=== PATIENT | male | born 1950 | race Hispanic/Latino ===

== ENCOUNTER → 2017-12-10 | Outpatient (CLI) | payer OTHER | END | disposition home or self-care (01) | LOC: RAH 08:59 | PROVIDERS: ATTEND Internal Medicine | DX: Q61.01 Congenital single renal cyst (principal); R10.12 Left upper quadrant pain | CPT/HCPCS: 76700 ==

== ENCOUNTER → 2018-07-22 | Outpatient (CLI) | payer OTHER | END | disposition home or self-care (01) | LOC: LAB 15:04 | PROVIDERS: ATTEND Internal Medicine | DX: J20.9 Acute bronchitis, unspecified (principal); F17.290 Nicotine dependence, other tobacco product, uncomplicated | CPT/HCPCS: 36415; 82565; 84520 ==

== ENCOUNTER → 2018-07-27 | Outpatient (CLI) | payer OTHER ==
[~2018-07-27] MED LIST: ALBUTEROL SULFATE 0.083% 2.5 MG/3 ML INH IH ONE; IOHEXOL-350 50ML VIAL IV ONE
== END | disposition home or self-care (01) ==
LOC: RESP 09:07
PROVIDERS: ATTEND Internal Medicine
DX: J20.9 Acute bronchitis, unspecified (principal); F17.290 Nicotine dependence, other tobacco product, uncomplicated
CPT/HCPCS: 71260; 94060; 94727; 94729; Q9967

== ENCOUNTER → 2018-10-17 | Outpatient (CLI) | payer OTHER ==
[2018-10-17 10:51] LABS: CREATININE 0.9 mg/dL (0.5-1.5)
== END | disposition home or self-care (01) ==
LOC: LAB 09:38
PROVIDERS: ATTEND Otolaryngology
DX: H90.5 Unspecified sensorineural hearing loss (principal)
CPT/HCPCS: 36415; 82565; 84520

== ENCOUNTER → 2018-10-20 | Outpatient (CLI) | payer OTHER ==
[~2018-10-20] MED LIST changes: -ALBUTEROL SULFATE 0.083% 2.5 MG/3 ML INH IH ONE; +GADODIAMIDE 5 MMOL/10 ML VIAL 5 MMOL/10 ML ML IV ONE; -IOHEXOL-350 50ML VIAL IV ONE
== END | disposition home or self-care (01) ==
LOC: RAH 10:00
PROVIDERS: ATTEND Otolaryngology
DX: G31.9 Degenerative disease of nervous system, unspecified (principal); H90.5 Unspecified sensorineural hearing loss
CPT/HCPCS: 70553; A9579

== ENCOUNTER → 2018-12-26 | Outpatient (CLI) | payer OTHER ==
[~2018-12-26] MED LIST changes: -GADODIAMIDE 5 MMOL/10 ML VIAL 5 MMOL/10 ML ML IV ONE; +IOHEXOL-350 50ML VIAL IV ONE; +IOHEXOL-350 75 ML VIAL IV ONE
== END | disposition home or self-care (01) ==
LOC: RAH 08:26
PROVIDERS: ATTEND Internal Medicine Cardiovascular Disease
DX: I70.293 Other atherosclerosis of native arteries of extremities, bilateral legs (principal)
CPT/HCPCS: 75635; Q9967 ×2

== ENCOUNTER 2019-05-10 06:04 | Day surgery (SDC) | payer OTHER ==
[2019-05-08 11:35] VITALS: BP 168/84
[2019-05-08 11:58] LABS: HEMATOCRIT 39.6 % (42-54); MEAN CORPUSCULAR HEMOGLOBIN 33.1 pg (27.0-33.0); MEAN CORPUSCULAR VOLUME 97.3 fL (79-99); PLATELET COUNT (AUTO) 228 K/uL (130-400); RED BLOOD CELL COUNT(AUTO) 4.07 MIL/uL (4.50-6.20); RED CELL DISTRIBUTION WIDTH 13.5 % (11.0-15.5); WHITE BLOOD COUNT (AUTO) 9.3 K/uL (4.8-10.8)
[2019-05-08 12:01] LABS: APPEARANCE,URINE Clear (CLEAR); BILIRUBIN,URINE Negative (NEGATIVE); COLOR,URINE Yellow (YELLOW); GLUCOSE, URINE (UA) Negative (NEGATIVE); KETONES,URINE Negative (NEGATIVE); LEUKOCYTE ESTERASE ,URINE Negative (NEGATIVE); NITRATE,URINE Negative (NEGATIVE); OCCULT BLOOD,URINE Negative (NEGATIVE); PROTEIN,URINE Negative (NEGATIVE); UROBILINOGEN,URINE 0.2 mg/dL (0.2-1.0)
[2019-05-08 12:08] LABS: POTASSIUM 4.8 mmol/L (3.5-5.1)
[2019-05-08 12:10] LABS: INR 0.95 (0.85-1.15); PARTIAL THROMBOPLASTIN TIME 33.1 SEC (26.3-35.5)
[2019-05-08 12:12] LABS: EOSINOPHILS % (AUTO) 5.9 % (0.0-8.0); LYMPHOCYTES % (AUTO) 21.2 % (21.0-51.0); MONOCYTES % (AUTO) 12.9 % (3.0-13.0)
--- NOTE | 2019-05-09 11:32 | NUR ---
XRAY ABNORMAL XRAY REPORTED TO IRAIDA DOS SANTOS, NO FURTHER ORDERS GIVEN
[~2019-05-10] VITALS: Ht 170.2 cm; Wt 80.5 kg
[2019-05-10] VITALS (19 sets, daily range): BP systolic 127–167; BP diastolic 51–77
[~2019-05-10 06:04] MED LIST changes: +AMLO2.5T4 PO; +ASPI-1181 PO; +ATOR20TA65 PO; +CETI10TA57 PO; +ENAL20TA PO; -IOHEXOL-350 50ML VIAL IV ONE; -IOHEXOL-350 75 ML VIAL IV ONE; +METO-408 PO; +[UNRECOGNIZED DRUG - OTHER] OU
[2019-05-10] MEDS ORDERED: NITROGLYCERIN 5 MG/ML 10 ML VIAL IV ONE (07:05)
[2019-05-10] MEDS ORDERED: IODIXANOL 320 MG/ML 100 ML VIAL ONE ×2 (07:05→08:50)
[2019-05-10] MEDS ORDERED: LIDOCAINE HCL 2% 20ML ONE (07:05)
[2019-05-10] MEDS ORDERED: HEPARIN SODIUM 1000UNIT/ML 10ML VIAL ONE (07:05)
[2019-05-10] MEDS ORDERED: SODIUM CHLORIDE 0.9% 1000ML 1,000 ML IV ONE (07:37)
[2019-05-10] MEDS ORDERED: MIDAZOLAM HCL 1 MG/ML 2ML VIAL ONE (07:49)
[2019-05-10] MEDS ORDERED: FENTANYL CITRATE PF 50 MCG/1 ML 2ML VIAL ONE (07:49)
[2019-05-10] MEDS ORDERED: CLOPIDOGREL BISULFATE 300 MG TAB ONE (09:48)
[2019-05-10] MEDS ORDERED: SODIUM CHLORIDE 0.9% 1000ML 1,000 ML IV SCH (09:49)
[2019-05-10] MEDS ORDERED: HYDRALAZINE HCL 20 MG/ML VIAL ONE (09:59)
[2019-05-10] MEDS ORDERED: NITROGLYCERIN 0.4 MG SL TAB SL PRN (10:00)
[2019-05-10] MEDS ORDERED: DEXTROSE 50%-WATER 50 ML DISP.SYRIN IV PRN (10:00)
[2019-05-10] MEDS ORDERED: METOPROLOL TARTRATE 1 MG/ML 5ML VIAL IV PRN (10:00)
[2019-05-10] MEDS ORDERED: HYDRALAZINE HCL 20 MG/ML VIAL IV PRN (10:00)
[2019-05-10] MEDS ORDERED: GLUCAGON 1MG KIT 1 MG ML IM PRN (10:00)
[2019-05-10] MEDS ORDERED: PHARMACY COMMUNICATION MISC SCH (10:30)
[2019-05-10] MEDS ORDERED: ATROPINE SULFATE 0.1 MG/ML 10 ML SYG IVP ONE (12:35)
--- NOTE | 2019-05-10 13:02 | NUR ---
D/C 6 FR SHEATH 6FR IS D/C APPLYING PRESSURE FOR 20 MIN USING DESTAT
--- NOTE | 2019-05-10 13:36 | NUR ---
SHEATH D/C 3O MIN MANUAL PRESSURE HELD WITH DSTAT IN PLACE. PT. TOLERATED PROCEDURE WELL NO BLEEDING, NO HEMATOMA.
--- NOTE | 2019-05-10 14:33 | NUR ---
REPORT GIVEN TO MICHELE OLIVAREZ RN. PT RESTING COMFORTABLY, NO PAIN, NO HEMATOMA, NO BLEEDING.
--- NOTE | 2019-05-10 14:33 | NUR ---
REPORT RECEIVED REPORT FROM LILLI FOX. PT LYING IN BED. RE-INSTRUCTED ON IMPORTANCE OF LYING IN BED AND NOT MOVING LEFT LEG OR LIFTING HEAD UP OFF OF BED. BOTH PT AND VERBALIZED UNDERSTANDING. SITE TO LEFT GROIN SOFT TO TOUCH. NO BLEEDING, OOZING NOTED TO SITE.
--- NOTE | 2019-05-10 16:25 | NUR ---
DISCHARGE ORAL AND WRITTEN DISCHARGE INSTRUCTIONS GIVEN TO PT AND PTS . INSTRUCTED ON IMPORTANCE OF MONITORING SITE. BOTH VERBALIZED UNDERSTANDING. PRESCRIPTION FOR PLAVIX GIVEN TO .
== END 2019-05-10 16:35 | disposition home or self-care (01) ==
LOC: DAH 06:04
PROVIDERS: ATTEND Internal Medicine Cardiovascular Disease
DX: I70.213 Atherosclerosis of native arteries of extremities with intermittent claudication, bilateral legs (principal); I25.10 Atherosclerotic heart disease of native coronary artery without angina pectoris; I10 Essential (primary) hypertension; E78.5 Hyperlipidemia, unspecified; Z88.0 Allergy status to penicillin; Z79.01 Long term (current) use of anticoagulants; Z79.899 Other long term (current) drug therapy; Z95.5 Presence of coronary angioplasty implant and graft; Z87.891 Personal history of nicotine dependence; Z72.89 Other problems related to lifestyle; Z83.3 Family history of diabetes mellitus; Z82.3 Family history of stroke
CPT/HCPCS: 36415; 37221; 37226; 71045; 75716; 80048; 81003; 85025; 85610; 85730; 93005; A4606; C1725; C1769 ×4; C1874 ×2; C1887; C1893; C1894 ×2; J0360 ×2; J1644 ×3; J2250; J3010; J3490 ×2; J7030; Q9967 ×2; 37223; 99156; 99157; J0461

== ENCOUNTER → 2019-06-23 | Outpatient (CLI) | payer OTHER | END | disposition home or self-care (01) | LOC: RAH 13:55 | PROVIDERS: ATTEND Internal Medicine | DX: L08.9 Local infection of the skin and subcutaneous tissue, unspecified (principal); I70.213 Atherosclerosis of native arteries of extremities with intermittent claudication, bilateral legs | CPT/HCPCS: 73630 ==

== ENCOUNTER → 2019-09-13 | Outpatient (CLI) | payer OTHER | END | disposition home or self-care (01) | LOC: SHCH 15:12 | PROVIDERS: ATTEND Internal Medicine Cardiovascular Disease | DX: I70.201 Unspecified atherosclerosis of native arteries of extremities, right leg (principal) | CPT/HCPCS: 93925 ==

== ENCOUNTER 2019-09-29 09:52 | Day surgery (SDC) | payer OTHER ==
[2019-09-27 11:21] VITALS: BP 158/65
[2019-09-27 12:05] LABS: BASOPHILS % (AUTO) 0.9 % (0.0-5.0); EOSINOPHILS % (AUTO) 3.1 % (0.0-8.0); HEMATOCRIT 35.9 % (42-54); MEAN CORPUSCULAR HEMOGLOBIN 30.7 pg (27.0-33.0); MEAN CORPUSCULAR HGB CONC 32.6 g/dL (32.0-36.0); MEAN CORPUSCULAR VOLUME 94.2 fL (79-99); MONOCYTES % (AUTO) 11.9 % (3.0-13.0); NEUTROPHILS % (AUTO) 68.8 % (40.0-77.0); PLATELET COUNT (AUTO) 329 K/uL (130-400); RED BLOOD CELL COUNT(AUTO) 3.81 MIL/uL (4.50-6.20); RED CELL DISTRIBUTION WIDTH 12.7 % (11.0-15.5); WHITE BLOOD COUNT (AUTO) 9.8 K/uL (4.8-10.8)
[2019-09-27 12:06] LABS: APPEARANCE,URINE Clear (CLEAR); BILIRUBIN,URINE Negative (NEGATIVE); COLOR,URINE Yellow (YELLOW); GLUCOSE, URINE (UA) Negative (NEGATIVE); KETONES,URINE Negative (NEGATIVE); LEUKOCYTE ESTERASE ,URINE Negative (NEGATIVE); NITRATE,URINE Negative (NEGATIVE); OCCULT BLOOD,URINE Negative (NEGATIVE); PH,URINE 5.5 (5.0-8.0); PROTEIN,URINE Negative (NEGATIVE)
[2019-09-27 12:14] LABS: POTASSIUM 4.7 mmol/L (3.5-5.1)
[2019-09-27 12:15] LABS: INR 0.97 (0.85-1.15); PROTHROMBIN TIME 10.2 SEC (9.6-11.6)
[~2019-09-29] VITALS: Ht 165.1 cm; Wt 72.6 kg
[2019-09-29] VITALS (10 sets, daily range): BP systolic 151–171; BP diastolic 58–84
[~2019-09-29 09:52] MED LIST changes: -CETI10TA57 PO; +CLOP75TA14 PO; -[UNRECOGNIZED DRUG - OTHER] OU
--- NOTE | 2019-09-29 10:30 | NUR ---
PATIENT ARRIVED PATIENT ARRIVED TO DAY PATIENT ACCOMPANIED BY SPOUSE. PATIENT AAO X3, RESPIRATIONS UNLABORED, VITAL SIGNS STABLE. PT C/O PAIN TO RIGHT SMALL TOE. PATIENT HAS OPEN WOUND TO RIGHT SMALL TOE WITH DRESSING IN PLACE. RIGHT LOWER EXTREMITY DISCOLORED AND RIGHT SMALL TOE APPEARS DARK PURPLE. PROCEDURE CONFIRMED AND VERIFIED WITH PATIENT. SIDE RAILS UP X2, BED IN LOWEST POSITION AND CALL SOLIS IN REACH.
[2019-09-29] MEDS ORDERED: LIDOCAINE HCL 2% 20ML ONE (12:41)
[2019-09-29] MEDS ORDERED: IODIXANOL 320 MG/ML 100 ML VIAL ONE (12:41)
[2019-09-29] MEDS ORDERED: NITROGLYCERIN 5 MG/ML 10 ML VIAL IV ONE (12:41)
[2019-09-29] MEDS ORDERED: MIDAZOLAM HCL 1 MG/ML 2ML VIAL ONE (12:42)
[2019-09-29] MEDS ORDERED: FENTANYL CITRATE PF 50 MCG/1 ML 2ML VIAL ONE (12:42)
--- NOTE | 2019-09-29 12:45 | NUR ---
PATIENT TRANSFERRED TO FIELD SERVICE TECHNICIAN VIA STRETCHER BY LILLI WARNER. PATIENT FAMILY MEMBER WAITING IN ROOM.
[2019-09-29] MEDS ORDERED: LABETALOL 20 MG/4 ML DISP.SYRIN IV ONE (13:39)
[2019-09-29] MEDS ORDERED: SODIUM CHLORIDE 0.9% 1000ML 1,000 ML IV SCH (13:47)
[2019-09-29] MEDS ORDERED: NITROGLYCERIN 0.4 MG SL TAB SL PRN (14:00)
[2019-09-29] MEDS ORDERED: METOPROLOL TARTRATE 1 MG/ML 5ML VIAL IV PRN (14:00)
[2019-09-29] MEDS ORDERED: DEXTROSE 50%-WATER 50 ML DISP.SYRIN IV PRN (14:00)
[2019-09-29] MEDS ORDERED: ACETAMINOPHEN-CODEINE 300/30MG TAB PO PRN (14:00)
[2019-09-29] MEDS ORDERED: HYDRALAZINE HCL 20 MG/ML VIAL IV PRN (14:00)
[2019-09-29] MEDS ORDERED: GLUCAGON 1MG KIT 1 MG ML IM PRN (14:00)
--- NOTE | 2019-09-29 14:15 | NUR ---
PATIENT RETURNED TO DAY PATIENT VIA BED BY LILLI WARNER AND LILLI FONTANEZ. PATIENT AAOX3, RESPIRATIONS UNLABORED, VITAL SIGNS STABLE. PATIENT C/O PAIN TO RIGHT TOE WOUND, SPOUSE APPLIED CREAM/OINTMENT. DRESSING TO LEFT GROIN DRY/INTACT. NO HEMATOMA/DRAINAGE NOTED.
--- NOTE | 2019-09-29 17:25 | NUR ---
DISCHARGE INSTRUCTIONS DISCHARGE INSTRUCTIONS PROVIDED TO PATIENT'S SPOUSE, HANDOUTS PROVIDED AND FOLLOW UP APPOINTMENT PROVIDED. ALL QUESTIONS ANSWERED. INSTRUCTED ON FEMORAL SITE CARE.
--- NOTE | 2019-09-29 18:15 | NUR ---
DISCHARGE PT DISCHARGED VIA WHEELCHAIR WITH . PT STABLE. CATH SITE TO LEFT GROIN REMAINS SOFT, DRESSING DRY AND INTACT, NO OOZING NO HEMATOMA NOTED. DISCHARGE INSTRUCTIONS WERE GIVEN EARLIER BY NOMI REEDER, ENCOURAGED TO ASK ANY QUESTIONS REGARDING INSTRUCTIONS, PER /PT, NONE, THEY ALL UNDERSTOOD INSTRUCTIONS.
== END 2019-09-29 18:15 | disposition home or self-care (01) ==
LOC: DAH 09:52
PROVIDERS: ATTEND Internal Medicine Cardiovascular Disease
DX: I73.9 Peripheral vascular disease, unspecified (principal); I25.10 Atherosclerotic heart disease of native coronary artery without angina pectoris; Z95.1 Presence of aortocoronary bypass graft; I10 Essential (primary) hypertension; E78.5 Hyperlipidemia, unspecified; Z79.82 Long term (current) use of aspirin; Z79.899 Other long term (current) drug therapy; F17.203 Nicotine dependence unspecified, with withdrawal; Z88.0 Allergy status to penicillin; Z79.01 Long term (current) use of anticoagulants
CPT/HCPCS: 36246; 36415; 71045; 75630; 80048; 81003; 85025; 85610; 85730; 93005; A4215; A4216; A4221; A4222; A4223 ×3; A4606; A4663; C1769; C1894 ×2; J1644; J2250; J3010; J3490 ×2; Q9967; 99156; 99157

== ENCOUNTER → 2022-12-18 | Outpatient (CLI) | payer OTHER ==
[~2022-12-18] MED LIST changes: +ACET-2123 PO; -ASPI-1181 PO; +ASPI-1443 PO; +CLOP-31 PO; -CLOP75TA14 PO; -ENAL20TA PO; +ENAL20TA18 PO; +GABA-531 PO
== END | disposition home or self-care (01) ==
LOC: RAH 08:52
PROVIDERS: ATTEND Internal Medicine
DX: I70.0 Atherosclerosis of aorta (principal); I71.40 Abdominal aortic aneurysm, without rupture, unspecified
CPT/HCPCS: 76775

== ENCOUNTER 2025-01-27 19:46 | Inpatient (IN) | payer OTHER ==
[~2025-01-27] VITALS: Ht 165.1 cm; Wt 47.8 kg
[~2025-01-27 19:46] MED LIST changes: -ACET-2123 PO; -AMLO2.5T4 PO; -ASPI-1443 PO; -ATOR20TA65 PO; +ATOR40TA69 PO; +ENAL-91 PO; -ENAL20TA18 PO; -GABA-531 PO; +METO-391 PO; -METO-408 PO; +SUCR1TAB2 PO
--- NOTE | 2025-01-27 20:09 | NUR ---
TRANSFERED CARE TO MARTHA
[2025-01-27 20:49] LABS: BASOPHILS # (AUTO) 0.06 K/uL (0.00-0.20); BASOPHILS % (AUTO) 0.6 % (0.0-5.0); EOSINOPHILS # (AUTO) 0.03 K/uL (0.00-0.70); EOSINOPHILS % (AUTO) 0.3 % (0.0-8.0); HEMATOCRIT 27.6 % (42-54); IMMATURE GRANULOCYTE ABSOLUTE 0.03 K/uL (0-1); LYMPHOCYTES # (AUTO) 1.1 K/uL (1.0-4.8); LYMPHOCYTES % (AUTO) 10.2 % (21.0-51.0); MEAN CORPUSCULAR HEMOGLOBIN 30.9 pg (27.0-33.0); MEAN CORPUSCULAR HGB CONC 34.4 g/dL (32.0-36.0); MEAN CORPUSCULAR VOLUME 89.9 fL (79-99); MONOCYTES # (AUTO) 0.9 K/uL (0.1-1.0); MONOCYTES % (AUTO) 8.5 % (3.0-13.0); NEUTROPHILS # (AUTO) 8.7 K/uL (1.8-7.7); NEUTROPHILS % (AUTO) 80.1 % (40.0-77.0); PLATELET COUNT (AUTO) 226 K/uL (130-400); RED BLOOD CELL COUNT(AUTO) 3.07 MIL/uL (4.50-6.20); RED CELL DISTRIBUTION WIDTH 13.9 % (11.0-15.5); WHITE BLOOD COUNT (AUTO) 10.9 K/uL (4.8-10.8)
--- NOTE | 2025-01-27 20:51 | HMCIMG ---
ELBOW 2VWS LT INDICATION: S/P FALL TECHNIQUE: ELBOW 2VWS LT. FINDINGS AND IMPRESSION: No displaced fracture or dislocation is seen. Correlate clinically. There is mild soft tissue swelling. Suboptimal lateral view. No radiopaque foreign body is identified. There is diffuse osteopenia limiting evaluation of the study.
[2025-01-27 21:00] LABS: CREATININE 0.6 mg/dL (0.5-1.3); POTASSIUM 3.9 mmol/L (3.5-5.1)
[2025-01-27 21:37] LABS: MAGNESIUM 1.7 mg/dL (1.80-2.40)
--- NOTE | 2025-01-27 21:45 | HMCIMG ---
INDICATION: sob TECHNIQUE: CHEST 1VW COMPARISON: 08/17/2024 FINDINGS AND IMPRESSION: Prominent bilateral interstitial markings which may represent bronchitis or vascular congestion in the proper clinical setting. Cardiac silhouette is within normal limits. Mild degenerative changes of the spine. Sternotomy wires are seen.
[2025-01-27] MEDS: 0.9%NACL 1000ML 1,000 ML IV SCH (22:23)
[2025-01-28] VITALS (8 sets, daily range): BP systolic 126–164; BP diastolic 68–91; PULSE 61–116; RESP 16–18; TEMP 97.3–98.5; O2SAT 100
[2025-01-28] MEDS ORDERED: doCUSate SODIUM 100 MG CAP PO PRN
[2025-01-28] MEDS ORDERED: acetaMINOPHEN 650 MG SUPPOSITORY RC PRN
[2025-01-28] MEDS ORDERED: TEMAZepam 15 MG CAPSULE PO PRN
[2025-01-28] MEDS ORDERED: ondanSETRON 4MG INJ IVP PRN
[2025-01-28] MEDS ORDERED: LACTULOSE 20 GM/30 ML UDCUP PO PRN
[2025-01-28] MEDS ORDERED: hydrALAZine 20MG/ML VIAL IV PRN
--- NOTE | 2025-01-28 00:02 | HP ---
[facility] HISTORY AND PHYSICAL Date of Service: Jan 28, 2025 Time of Service: 00:02 PCP: Dr. Jonathan Chan Attending/supervising physicians: Dr. Hill and Dr. Lim HISTORY OF PRESENT ILLNESS: Mr. Pearce is a 75-year-old male with a history of HTN, HDL, PVD, very hard of hearing, and right BKA who presented to [facility] ED for wound evaluation. ED reported that the son noticed a skin tear to the left elbow that has not stop bleeding for the last two days. The son at bedside states he normally does not s peak with his parents much so he was unsure what medications or what medical history the patient has. The patient has an obvious right BKA. ED provider request patient be admitted with the diagnosis of dehydration, hyponatremia, and chronic anemia. I went to assess the patient at bedside in room ED 3. The patient appeared comfortable, in no distress. Per chart review the patient has been intermittently hyponatremic sense 2018, and the patient is on Plavix. The patient was admitted on 08/17/2024 for the diagnosis of dehydration and hyponatremia. The patient was discharged on 08/24/2024. The patient is very hard of hearing, but is awake, alert, and oriented. I informed him of plan of care and he is in agreement with the plan. REVIEW OF SYSTEMS Unable to obtain ROS from patient due to patient is very hard of hearing. PAST MEDICAL HISTORY: As mentioned above PAST SURGICAL HISTORY: Right below-knee amputation PAST SOCIAL HISTORY: Drinks 2-3 beers every day for the at least 10 years. Smokes half a pack of cigarettes for at least 30 years. Denied any drug use. FAMILY HISTORY: Negative Coded Allergies: Penicillins (Unverified Allergy, Unknown, 05/08/19) PHYSICAL EXAM GENERAL APPEARANCE: The patient is awake, alert, and oriented, in no acute cardiopulmonary distress. NEUROLOGICAL: Cranial nerves II-XII grossly intact. Motor is 5/5 in bilateral upper and lower extremities proximal to distal. No sensory deficits. HEENT: Face is symmetric. Pupils are equal and reactive. Extraocular movements are intact. NECK: Supple. No JVD. No thyromegaly. No submental, submandibular, pre- /postauricular, occipital or supraclavicular lymphadenopathy. CHEST: Normal chest expansion. No Telemetry. LUNGS: Absence of any rales, rhonchi or any wheezing. CARDIOVASCULAR: Regular. S1 and S2 normal. No appreciable rubs, murmurs or gallops. ABDOMEN: Soft, nontender, and nondistended. There is no rebound, voluntary guarding, or rigidity. : Deferred. No Mckeon. EXTREMITIES: Right BKA. Multiple skin tears to bilateral upper extremities with controlled bleeding. Non-edematous and not cyanotic. No clubbing. Good capillary refill. SKIN: No skin breakdown. Vital Sign (Last 24 Hours) 01/27/25 23:05 Temp 98.2 Pulse 72 Resp 17 B/P (MAP) 146/62 Pulse Ox 99 O2 Delivery Room Air* O2 Flow Rate 0 FiO2 21 LABS: Laboratory: Test 01/27/25 20:29 Range/Units White Blood Count 10.9 H 4.8-10.8 K/uL Red Blood Count 3.07 L 4.50-6.20 MIL/uL Hemoglobin 9.5 L 14.0-18.0 g/dL Hematocrit 27.6 L 42-54 % Mean Corpuscular Volume 89.9 79-99 fL Mean Corpuscular Hemoglobin 30.9 27.0-33.0 pg Mean Corpuscular Hemoglobin Concent 34.4 32.0-36.0 g/dL Red Cell Distribution Width 13.9 11.0-15.5 % Platelet Count 226 130-400 K/uL Mean Platelet Volume 9.8 7.5-10.5 fL Immature Granulocyte % (Auto) 0.3 0-1 % Neutrophils (%) (Auto) 80.1 H 40.0-77.0 % Lymphocytes (%) (Auto) 10.2 L 21.0-51.0 % Monocytes (%) (Auto) 8.5 3.0-13.0 % Eosinophils (%) (Auto) 0.3 0.0-8.0 % Basophils (%) (Auto) 0.6 0.0-5.0 % Neutrophils # (Auto) 8.7 H 1.8-7.7 K/uL Lymphocytes # (Auto) 1.1 1.0-4.8 K/uL Monocytes # (Auto) 0.9 0.1-1.0 K/uL Eosinophils # (Auto) 0.03 0.00-0.70 K/uL Basophils # (Auto) 0.06 0.00-0.20 K/uL Absolute Immature Granulocyte (auto 0.03 0-1 K/uL Nucleated Red Blood Cells 0.0 0.0-0.19 % Sodium Level 124 L 136-145 mmol/L Potassium Level 3.9 3.5-5.1 mmol/L Chloride Level 92 L 101-111 mmol/L Carbon Dioxide Level 25 21-32 mmol/L Blood Urea Nitrogen 11 7-18 mg/dL Creatinine 0.6 0.5-1.3 mg/dL Glomerular Filtration Rate Calc 99 >90 mL/min Random Glucose 97 70-105 mg/dL Total Calcium 8.7 8.5-10.1 mg/dL Magnesium Level 1.70 L 1.80-2.40 mg/dL Total Creatine Kinase 76 21-232 U/L Troponin I High Sensitivity 18 4-75 ng/L B-Type Natriuretic Peptide 619 H 0-100 pg/mL Current Medications Medications (Trade) Dose Ordered Sig/Elliott Route PRN Reason Start Time Stop Time Status Last Admin Dose Admin Sodium Chloride 1,000 ml @ 100 mls/hr Q10H IV 01/27/25 22:00 02/26/25 21:59 01/27/25 22:23 100 MLS/HR DIAGNOSTICS / RADIOLOGY: [ ] ASSESSMENT: Acute on chronic hyponatremia, POA, suspect alcohol-induced hyponatremia Electrolyte derangement (hyponatremia, hypochloremia, hypokalemia, hypomagnesemia) Multiple bleeding skin tears to bilateral upper extremities, POA, on Plavix Elevated BNP Congestive heart failure, LVEF 35-40% per echo on 08/18/2024 Iron deficiency anemia/acute on chronic anemia Uncontrolled hypertension Cachexia Chronic problem list: HTN, HDL, PVD, very hard of hearing, and right BKA, chronic constipation PVD with history of Abdominal aortogram with peripheral runoff of the left lower extremity, directional arthrectomy and drug coated angioplasty of the left dis cl L SFA artery and L TP artery and covered stent placement in the left peritoneal artery in 11/23/[address] Roney Acuña. On Plavix Alcohol and tobacco abuse COPD, on Breyna 80/4.5 Right foot gangrene/osteomyelitis s/p right BKA done on 11/28/[address] Dominguez History of Protein calorie malnutrition PLAN: Admit patient to medical floor with telemetry monitoring. Sodium chloride1 g x 1 dose. ED administered NS1 L at 100 mL an hour, currently running. Monitor for fluid overload (BNP 619). Strict I&Os, fluid restrictions a 1200 mL. BMP Q6H. Consult Nephrology for recurrent hyponatremia. Dr. Chaitanya Shin saw patient on last admission for hyponatremia on 08/2024. Start home medications from external med rec: Metoprolol succinate, atorvastatin, Plavix, Breyna. Reconcile remaining home medications once med rec is updated. Keep Upper extremity skin tears clean and dry, wound care by nursing. O2 as needed to keep SpO2 equal to greater than 92%. P.r.n. medications for: Pain, fever, hypertension, nausea, vomiting, constipation. Glucometer checks a.c. and HS with insulin regular sliding scale as needed per protocol. Blood pressure checks every4 hours and as needed. Monitor electrolytes and treat accordingly. A.m. labs: CBC, BNP, Mag, phos, TSH, A1c. GI and DVT prophylaxis. ADVANCED CARE PLANNING 1. Which of the following were discussed? Hospice Care - No Therapeutic options - Yes Advance Directives - Yes Other discussions - 2. Discussed with who? Patient 3. Voluntary nature of this service was explained to the patient? Yes 4. Amount of time spent - __ over 35 minute 5. Reviewed by Physician? (if this service was performed by NPP) Yes ATTESTATION BY PHYSICIAN I have seen and examined the patient. I reviewed the documentation, medical deci dwight making, and treatment plan as noted by the mid-level provider above. I agree with the findings and plan of care. KHURRAM BLANK [address] MACHINERY INSPECTOR Jan 28, 2025 00:02
--- NOTE | 2025-01-28 00:14 | ERN ---
General Chief Complaint: Laceration/Avulsion Stated Complaint: RECURRENT HYPONATREMIA Time Seen by MD: 20:11 Time Seen by Midlevel: 20:11 Source: patient, family History of Present Illness Initial Comments This is a 75-year-old male who is an extremely poor historian presenting to the emergency department for a wound evaluation. According to the son who is at bedside they noticed a skin tear to the left elbow that has not stop bleeding for the last two days. I attempted to obtained medical history from both the patient and his but they state the patient has no past medical history. The son at bedside states he normally does not speak with his parents much so he was unsure what medications or what medical history patient has. The patient has an obvious right BKA. He voices no concerns but also does not answer any questions or follows simple commands. It appears the patient was hard of hearing. Allergies: Coded Allergies: Penicillins (Unverified Allergy, Unknown, 05/08/19) Home Meds Reported Medications Enalapril Maleate (Enalapril Maleate) 20 Mg Tablet, 1 TAB PO DAILY for 30 Days, #30 TAB 0 Refills 08/20/24 Metoprolol Succinate (Metoprolol Succinate) 50 Mg Tab.er.24h, 1 TAB PO DAILY for 30 Days, #30 TAB 0 Refills 08/20/24 Sucralfate (Sucralfate) 1 Gram Tablet, 1 GM PO HS, TAB 08/20/24 Sucralfate (Sucralfate) 1 Gram Tablet, 1 TAB PO QID for 30 Days, #120 TAB 0 R efills 08/20/24 Atorvastatin Calcium (LIPITOR) 40 Mg Tablet, 40 MG PO AM, TAB 08/20/24 Clopidogrel Bisulfate (Plavix) 75 Mg Tablet, 75 MG PO DAILY, TAB 09/27/19 Past Medical History Past Medical History: CAD, High Cholesterol, Hypertension Past Surgical History: Other Surgical History Other: RT AKA ROS Dictation CONSTITUTIONAL: Negative except for HPI HEAD/FACE: Negative except for HPI EENT: Negative except for HPI RESPIRATORY: Negative except for HPI GASTROINTESTINAL/ABDOMINAL: Negative except for HPI GENITOURINARY: Negative except for HPI MUSCULOSKELETAL: Negative except for HPI INTEGUMENTARY: Negative except for HPI NEUROLOGICAL/PSYCH: Negative except for HPI HEMATOLOGIC/LYMPHATIC: Negative except for HPI All Systems Negative, Except as noted above. 13 point review of systems assessed and all negative except for above. Physical Exam Physical Exam Dictation Vital Signs reviewed General Appearance: Alert, frail-appearing, cachectic Head and Face: non-traumatic. Eyes: PERRL, pink conjunctivas, eyelid no trauma, anterior chamber with arcus senilis. Ears: Pinnas intact and no signs of trauma or erythema ear canals clear and no discharge TM no erythema Nose: No discharge, no bleeding. Oropharynx: Mouth normal, tongue pink, pharynx clear,no erythema, tonsils no exudates, no abscesses noted, mucous membrane moist Neck: Supple, non-tender, no thyromegaly, no masses, no JVD, no bruits Breast:Deferred Chest:No tenderness, no crepitus, no paradoxical movement, no retractions Lungs:Clear, well-ventilated, symmetric, no rales, no wheezing, no rhonchi, no stridor, good breath sounds bilaterally Heart: Regular rate, regular rhythm, no murmur, no gallops Vascular: no peripheral edema, Abdomen: Soft, positive bowel sounds, nondistended, no guarding, nontender, no rebound, no masses no hepatomegaly, no splenomegaly, no Thompson's sign, no hernias. Rectal: Deferred Genital: Deferred Neurological: Normal speech, motor function intact, sensory function intact Musculoskeletal: Neck nontender, full range of motion, back nontender, full range of motion, Extremities: Right BKA Skin: Bruising to bilateral upper extremities, there is a skin tear to the left lateral elbow with minimal active bleeding Lymphatic: Deferred Results Laboratory and Microbiology Lab and Micro Result Laboratory Tests Test 01/27/25 20:29 White Blood Count 10.9 K/uL (4.8-10.8) H Red Blood Count 3.07 MIL/uL (4.50-6.20) L Hemoglobin 9.5 g/dL (14.0-18.0) L Hematocrit 27.6 % (42-54) L Mean Corpuscular Volume 89.9 fL (79-99) Mean Corpuscular Hemoglobin 30.9 pg (27.0-33.0) Mean Corpuscular Hemoglobin Concent 34.4 g/dL (32.0-36.0) Red Cell Distribution Width 13.9 % (11.0-15.5) Platelet Count 226 K/uL (130-400) Mean Platelet Volume 9.8 fL (7.5-10.5) Immature Granulocyte % (Auto) 0.3 % (0-1) Neutrophils (%) (Auto) 80.1 % (40.0-77.0) H Lymphocytes (%) (Auto) 10.2 % (21.0-51.0) L Monocytes (%) (Auto) 8.5 % (3.0-13.0) Eosinophils (%) (Auto) 0.3 % (0.0-8.0) Basophils (%) (Auto) 0.6 % (0.0-5.0) Neutrophils # (Auto) 8.7 K/uL (1.8-7.7) H Lymphocytes # (Auto) 1.1 K/uL (1.0-4.8) Monocytes # (Auto) 0.9 K/uL (0.1-1.0) Eosinophils # (Auto) 0.03 K/uL (0.00-0.70) Basophils # (Auto) 0.06 K/uL (0.00-0.20) Absolute Immature Granulocyte (auto 0.03 K/uL (0-1) Nucleated Red Blood Cells 0.0 % (0.0-0.19) Sodium Level 124 mmol/L (136-145) L Potassium Level 3.9 mmol/L (3.5-5.1) Chloride Level 92 mmol/L (101-111) L Carbon Dioxide Level 25 mmol/L (21-32) Blood Urea Nitrogen 11 mg/dL (7-18) Creatinine 0.6 mg/dL (0.5-1.3) Glomerular Filtration Rate Calc 99 mL/min (>90) Random Glucose 97 mg/dL (70-105) Total Calcium 8.7 mg/dL (8.5-10.1) Magnesium Level 1.70 mg/dL (1.80-2.40) L Total Creatine Kinase 76 U/L (21-232) Troponin I High Sensitivity 18 ng/L (4-75) B-Type Natriuretic Peptide 619 pg/mL (0-100) H Labs Reviewed?: Yes MDM MDM: Differential diagnosis: Dehydration, hyponatremia, failure to thrive, electrolyte abnormality Rationale: Tests considered and ordered secondary to shared decision making include: Previous outside records reviewed: Old ER visits. Risk of complication and/or morbidity or mortality of patient management: None Medications-Per medication reconciliation Need for hospitalization: Patient does meet criteria for hospitalization. Need for emergency major/minor surgery: No There are no social concerns with this patient. Prescription drug management Prescriptions will include symptomatic care Patient's prior external medical records from other ER visits were reviewed by me as indicated. Prior testing and results from previous visits were reviewed. Prior tests were taken into account with medical decision making and resource utilization, independent historian/historians were used to obtain complete medical history. I independently interpreted the test that were performed, results were reviewed by me and considered findings on radiology if ordered. Medical management and examination interpretation discussions were had by me with other qualified healthcare professionals as indicated for the patient's care. ED Course Orders Procedure Category Date Status Time Cbc With Differential LAB 01/27/25 Complete 20:11 Basic Metabolic Panel LAB 01/27/25 Complete 20:11 Elbow 2vws Lt RAD 01/27/25 Resulted 20:11 Troponin I High LAB 01/27/25 Complete Sensitivity 21:08 12 Lead Ekg Tracing- EKG 01/27/25 Logged Technical 21:08 B-Type Natriuretic LAB 01/27/25 Complete Peptide 21:13 Creatine Kinase, Total LAB 01/27/25 Complete 21:13 Magnesium LAB 01/27/25 Complete 21:13 Chest 1vw RAD 01/27/25 Resulted 21:13 0.9%Nacl 1000ml (Ns PHA 01/27/25 In Process 1000ml) 22:00 Current Medications Medications (Trade) Dose Ordered Sig/Elliott Route PRN Reason Start Time Stop Time Status Last Admin Dose Admin Sodium Chloride 1,000 ml @ 100 mls/hr Q10H IV 01/27/25 22:00 02/26/25 21:59 01/27/25 22:23 Vital Signs Date Time Temp Pulse Resp B/P (MAP) Pulse Ox O2 Delivery O2 Flow Rate FiO2 01/27/25 23:05 98.2 72 17 146/62 99 Room Air* 0 01/27/25 21:25 95.2 76 18 157/58 97 Room Air* 0 01/27/25 20:01 98.1 70 16 160/60 98 Room Air* 0 01/27/25 19:48 97.3 72 16 163/63 98 Room Air [place] [address] [id number] IMAGING REPORT Signed PATIENT: MARTHA GUTIERREZ MR#: [id number] : 1950 SEX: M AGE: 75 LOCATION: EDH ORDER 13 STATUS: REG ER REPORT#: [id number] SERVICE 12 REASON: sob ORDERING PHYSICIAN: TIM FELDER PROCEDURE: CXR1VW - CHEST 1VW INDICATION: sob TECHNIQUE: CHEST 1VW COMPARISON: 08/17/2024 FINDINGS AND IMPRESSION: Prominent bilateral interstitial markings which may represent bronchitis or vascular congestion in the proper clinical setting. Cardiac silhouette is within normal limits. Mild degenerative changes of the spine. Sternotomy wires are seen. DICTATED BY: DAWN SEYMOUR MD DATE: 01/27/252141 ELECTRONICALLY SIGNED BY: DAWN SEYMOUR MD DATE: 01/27/252144 [address] [place] [id number] IMAGING REPORT Signed PATIENT: MARTHA GUTIERREZ MR#: [id number] : 1950 SEX: M AGE: 75 LOCATION: ED ORDER 12 STATUS: REG ER REPORT#: [id number] SERVICE 10 REASON: S/P FALL ORDERING PHYSICIAN: RADHA PACHECO MD PROCEDURE: [id number] - ELBOW 2VWS LT ELBOW 2VWS LT INDICATION: S/P FALL TECHNIQUE: ELBOW 2VWS LT. FINDINGS AND IMPRESSION: No displaced fracture or dislocation is seen. Correlate clinically. There is mild soft tissue swelling. Suboptimal lateral view. No radiopaque foreign body is identified. There is diffuse osteopenia limiting evaluation of the study. DICTATED BY: DAWN SEYMOUR MD DATE: 01/27/252047 ELECTRONICALLY SIGNED BY: DAWN SEYMOUR MD DATE: 01/27/252050 DX & DISP Disposition: Inpatient Decision to Admit Date: Jan 28, 2025 Departure Impression: Primary Impression: Dehydration Additional Impressions: Hyponatremia, Chronic anemia Condition: Stable Referrals: IBRAHIMA REID MD (PCP) I have reviewed the case, and I agree with, Diagnosis and Plan I performed the substantive portion of the visit. I have reviewed and personally made and approve the management plan that is documented in the note by myself or the MAXIME. I acknowledge for responsibility for the patient's management plan. TIM FELDER Jan 28, 2025 00:13
--- NOTE | 2025-01-28 00:19 | NUR ---
REPORT GIVEN TO BIBI BOWENS BY MARTHA REEDER
[2025-01-28 02:24] LABS: HEMATOCRIT 22.3 % (42-54); MEAN CORPUSCULAR HEMOGLOBIN 31.2 pg (27.0-33.0); MEAN CORPUSCULAR HGB CONC 35.4 g/dL (32.0-36.0); MEAN CORPUSCULAR VOLUME 88.1 fL (79-99); RED BLOOD CELL COUNT(AUTO) 2.53 MIL/uL (4.50-6.20); RED CELL DISTRIBUTION WIDTH 13.8 % (11.0-15.5); WHITE BLOOD COUNT (AUTO) 8.5 K/uL (4.8-10.8)
[2025-01-28 02:35] LABS: INR 1.09 (0.85-1.15); PROTHROMBIN TIME 11.5 SEC (9.6-11.6)
[2025-01-28 02:37] LABS: HEMOGLOBIN A1C 5.1 % (4.0-6.0); PARTIAL THROMBOPLASTIN TIME 35.4 SEC (26.3-35.5)
[2025-01-28 02:47] LABS: CREATININE 0.5 mg/dL (0.5-1.3); MAGNESIUM 1.6 mg/dL (1.80-2.40); POTASSIUM 3.3 mmol/L (3.5-5.1); THYROID STIMULATING HORMONE 2.37 uIU/mL (0.36-3.74)
[2025-01-28] MEDS: PoTASSium chloRIDE 20MEQ/100ML 100 ML IV PRN (03:25)
[2025-01-28] MEDS: MAGNESIUM 2GM PREMIX 50ML 50 ML IV PRN (03:25)
[2025-01-28] MEDS: INSULIN humuLIN R 100 UNIT/ML 3ML SQ SCH (05:50)
[2025-01-28 08:54] LABS: MAGNESIUM 1.6 mg/dL (1.80-2.40); PHOSPHORUS 3.1 mg/dL (2.5-4.9)
[2025-01-28] MEDS: FAMOTIDINE 20MG TAB PO SCH (10:31)
[2025-01-28] MEDS: SODIUM CHLORIDE 1,000 MG TAB PO ONE (10:31)
[2025-01-28] MEDS: metOPROLol sucCINATE 50 MG TAB.SR.24H PO SCH (10:31)
[2025-01-28] MEDS: cloPIDOgrel 75MG TAB PO SCH (10:31)
[2025-01-28 11:49] LABS: APPEARANCE,URINE CLEAR (CLEAR); BILIRUBIN,URINE NEGATIVE (NEGATIVE); COLOR,URINE LIGHT-YELLOW (YELLOW); GLUCOSE, URINE (UA) NEGATIVE (NEGATIVE); KETONES,URINE NEGATIVE (NEGATIVE); LEUKOCYTE ESTERASE ,URINE NEGATIVE Leu/uL (NEGATIVE); NITRATE,URINE NEGATIVE (NEGATIVE); OCCULT BLOOD,URINE NEGATIVE (NEGATIVE); PH,URINE 6.5 (5.0-8.0); PROTEIN,URINE NEGATIVE (NEGATIVE); UROBILINOGEN,URINE 0.2 mg/dL (0.2-1.0)
[2025-01-28 11:52] LABS: RBC,URINE 0-1 /HPF (0-1); WBC,URINE 0-1 /HPF (0-1)
--- NOTE | 2025-01-28 11:53 | PN ---
[facility] PROGRESS NOTE Date of Service: Jan 28, 2025 Time of Service: 11:40 SUBJECTIVE: [ 5-year-old male with a history of HTN, HDL, PVD, very hard of hearing, and right BKA who presented to [facility] for wound evaluation. ED reported that the son noticed a skin tear to the left elbow that has not stop bleeding for the last two days. The son at bedside states he normally does not speak with his parents much so he was unsure what medications or what medical history the patient has. The patient has an obvious right BKA. ED provider request patient be admitted with the diagnosis of dehydration, hyponatremia, and chronic anemia. I went to assess the patient at bedside in room ED 3. The patient appeared comfortable, in no distress. Per chart review the patient has been intermittently hyponatremic sense 2018, and the patient is on Plavix. The patient was admitted on 08/17/2024 for the diagnosis of dehydration and hyponatremia. The patient was discharged on 08/24/2024. The patient is very hard of hearing, but is awake, alert, and oriented. I informed him of plan of care and he is in agreement with the plan. 01/28/2025. Patient was seen and examined no new complaints. Serum sodium 125. Awaiting urine electrolytes urine osmolality and serum osmolality results. ] REVIEW OF SYSTEMS Unable to obtain ROS from patient due to patient is very hard of hearing. PHYSICAL EXAM GENERAL APPEARANCE: The patient is awake, alert, and oriented, in no acute cardiopulmonary distress. NEUROLOGICAL: Cranial nerves II-XII grossly intact. Motor is 5/5 in bilateral upper and lower extremities proximal to distal. No sensory deficits. HEENT: Face is symmetric. Pupils are equal and reactive. Extraocular movements are intact. NECK: Supple. No JVD. No thyromegaly. No submental, submandibular, pre- /postauricular, occipital or supraclavicular lymphadenopathy. CHEST: Normal chest expansion. No Telemetry. LUNGS: Absence of any rales, rhonchi or any wheezing. CARDIOVASCULAR: Regular. S1 and S2 normal. No appreciable rubs, murmurs or gallops. ABDOMEN: Soft, nontender, and nondistended. There is no rebound, voluntary guarding, or rigidity. : Deferred. No Mckeon. EXTREMITIES: Right BKA. Multiple skin tears to bilateral upper extremities with controlled bleeding. Non-edematous and not cyanotic. No clubbing. Good capillary refill. SKIN: No skin breakdown. Vital Signs (last 8hr) Date Time Temp Pulse Resp B/P (MAP) Pulse Ox O2 Delivery O2 Flow Rate FiO2 01/28/25 07:00 97.5 65 17 145/87 100 Room Air LABS: Laboratory: Test 01/28/25 11:17 01/28/25 02:18 01/27/25 20:29 Range/Units Whole Blood Glucose 110 70-110 MG/DL White Blood Count 8.5 4.8-10.8 K/uL Red Blood Count 2.53 L 4.50-6.20 MIL/uL Hemoglobin 7.9 L 14.0-18.0 g/dL Hematocrit 22.3 L 42-54 % Mean Corpuscular Volume 88.1 79-99 fL Mean Corpuscular Hemoglobin 31.2 27.0-33.0 pg Mean Corpuscular Hemoglobin Concent 35.4 32.0-36.0 g/dL Red Cell Distribution Width 13.8 11.0-15.5 % Platelet Count 224 130-400 K/uL Mean Platelet Volume 9.7 7.5-10.5 fL Nucleated Red Blood Cells 0.0 0.0-0.19 % Prothrombin Time 11.5 9.6-11.6 SEC Prothromb Time International Ratio 1.09 0.85-1.15 Activated Partial Thromboplast Time 35.4 26.3-35.5 SEC Sodium Level 125 L 136-145 mmol/L Potassium Level 3.3 L 3.5-5.1 mmol/L Chloride Level 94 L 101-111 mmol/L Carbon Dioxide Level 23 21-32 mmol/L Blood Urea Nitrogen 9 7-18 mg/dL Creatinine 0.5 0.5-1.3 mg/dL Glomerular Filtration Rate Calc 105 >90 mL/min Random Glucose 91 70-105 mg/dL Hemoglobin A1c 5.1 4.0-6.0 % Estimated Average Glucose (eAG) 100 70-126 mg/dL Total Calcium 8.3 L 8.5-10.1 mg/dL Phosphorus Level 3.1 2.5-4.9 mg/dL Magnesium Level 1.60 L 1.80-2.40 mg/dL Thyroid Stimulating Hormone (TSH) 2.37 0.36-3.74 uIU/mL Serum Alcohol < 3 0-10 mg/dL Immature Granulocyte % (Auto) 0.3 0-1 % Neutrophils (%) (Auto) 80.1 H 40.0-77.0 % Lymphocytes (%) (Auto) 10.2 L 21.0-51.0 % Monocytes (%) (Auto) 8.5 3.0-13.0 % Eosinophils (%) (Auto) 0.3 0.0-8.0 % Basophils (%) (Auto) 0.6 0.0-5.0 % Neutrophils # (Auto) 8.7 H 1.8-7.7 K/uL Lymphocytes # (Auto) 1.1 1.0-4.8 K/uL Monocytes # (Auto) 0.9 0.1-1.0 K/uL Eosinophils # (Auto) 0.03 0.00-0.70 K/uL Basophils # (Auto) 0.06 0.00-0.20 K/uL Absolute Immature Granulocyte (auto 0.03 0-1 K/uL Total Creatine Kinase 76 21-232 U/L Troponin I High Sensitivity 18 4-75 ng/L B-Type Natriuretic Peptide 619 H 0-100 pg/mL Current Medications Medications (Trade) Dose Ordered Sig/Elliott Route PRN Reason Start Time Stop Time Status Last Admin Dose Admin Acetaminophen (TYLenol 325MG TAB) 650 mg Q6H PRN PO FEVER/MILD PAIN LEVEL 1-3 01/28/25 00:00 02/27/25 00:00 Acetaminophen (TYLenol 650MG SUPPOSITORY) 650 mg Q6H PRN RC FEVER / MILD PAIN 1-3 IF NPO 01/28/25 00:00 02/27/25 00:00 Atorvastatin Calcium (LIPItor 40MG) 40 mg HS PO 01/28/25 21:00 02/27/25 20:59 Clopidogrel Bisulfate (plaVIX 75MG) 75 mg DAILY PO 01/28/25 09:00 02/27/25 08:59 01/28/25 10:31 75 MG Docusate Sodium (COLace 100MG CAP) 100 mg BID PRN PO c 01/28/25 00:00 02/27/25 00:00 Famotidine (Pepcid 20mg Tab) 20 mg BID PO 01/28/25 09:00 02/27/25 08:59 01/28/25 10:31 20 MG Hydralazine HCl (APRESOLine 20MG INJ) 10 mg Q6H PRN IV SBP GREATER THAN 180 01/28/25 00:00 02/27/25 00:00 Insulin Human Regular (humuLIN R 100 UNIT/ML 3ML) INSULIN SLIDING SCAL... ACHS SQ 01/28/25 07:30 02/27/25 07:29 Lactulose (Constulose 20gm/ 30ml Udcup) 20 gm Q6H PRN PO CONSTIPATION 01/28/25 00:00 02/27/25 00:00 Magnesium Sulfate 50 ml @ 0 mls/hr PROTOCOL PRN IV MAGNESIUM PROTOCOL 01/28/25 03:00 02/27/25 02:59 01/28/25 03:25 25 MLS/HR Metoprolol Succinate (TopROL XL) 50 mg DAILY PO 01/28/25 09:00 02/27/25 08:59 01/28/25 10:31 50 MG Ondansetron HCl (zoFRAN 4MG INJ) 4 mg Q6H PRN IVP NAUSEA/VOMITING 01/28/25 00:00 02/27/25 00:00 Potassium Chloride 100 ml @ 100 mls/hr AD PRN IV POTASSIUM PROTOCOL 01/28/25 03:00 02/27/25 02:59 01/28/25 03:25 100 MLS/HR Potassium Chloride (K-Dur/Klor-Con 20meq) 20 meq AD PRN PO POTASSIUM PROTOCOL 01/28/25 03:00 02/27/25 02:59 Potassium Chloride (KCl 10% Elixir 20meq/15ml) 20 meq AD PRN PO POTASSIUM PROTOCOL 01/28/25 03:00 02/27/25 02:59 Sodium Chloride 1,000 ml @ 100 mls/hr Q10H IV 01/27/25 22:00 02/26/25 21:59 01/27/25 22:23 100 MLS/HR Temazepam (restORIL 15 MG CAP) 15 mg HS PRN PO INSOMNIA/SLEEP 01/28/25 00:00 02/27/25 00:00 DIAGNOSTICS / RADIOLOGY: [ ] ASSESSMENT: Acute on chronic hyponatremia, POA, suspect alcohol-induced hyponatremia Electrolyte derangement (hyponatremia, hypochloremia, hypokalemia, hypomagnesemia) Multiple bleeding skin tears to bilateral upper extremities, POA, on Plavix Elevated BNP Congestive heart failure, LVEF 35-40% per echo on 08/18/2024 Iron deficiency anemia/acute on chronic anemia Uncontrolled hypertension Cachexia Chronic problem list: HTN, HDL, PVD, very hard of hearing, and right BKA, chronic constipation PVD with history of Abdominal aortogram with peripheral runoff of the left lower extremity, directional arthrectomy and drug coated angioplasty of the left distal L SFA artery and L TP artery and covered stent placement in the left peritoneal artery in 11/23/[address] Roney Acuña. On Plavix Alcohol and tobacco abuse COPD, on Breyna 80/4.5 Right foot gangrene/osteomyelitis s/p right BKA done on 11/28/[address] Dominguez History of Protein calorie malnutrition PLAN: Follow urine osmolarity serum osmolality urine electrolytes TSH and cortisol level. May have SIADH versus hypovolemic hyponatremia. Although1 L of normal saline did not improve the serum sodium this goes more in favor of SIADH. We will follow nephrology consult in follow urine studies and then start on salt tabs if indicated. Consult Nephrology for recurrent hyponatremia. Dr. Chaitanya Shin saw patient on last admission for hyponatremia on 08/2024. Start home medications from external med rec: Metoprolol succinate, atorvastatin, Plavix, Breyna. Reconcile remaining home medications once med rec is updated. Keep Upper extremity skin tears clean and dry, wound care by nursing. Follow iron studies if found to have iron-deficiency anemia we will replace with IV iron. GI DVT prophylaxis per protocol CAT MI MD Jan 28, 2025 11:53
[2025-01-28 12:07] LABS: CHLORIDE,URINE RANDOM 127 mmol/L (110-250); CREATININE,URINE RANDOM 20.42 mg/dL (30-135); POTASSIUM,URINE RANDOM 22 mmol/L (25-125); SODIUM,URINE RANDOM 108 mmol/l (40-220)
[2025-01-28 12:40] LABS: AMPHET/METH SCREEN,URINE NEGATIVE (NEGATIVE); BARBITURATE SCREEN, URINE NEGATIVE (NEGATIVE); BENZODIAZEPINES SCREEN,URINE NEGATIVE (NEGATIVE); CANNABINOID SCREEN,URINE NEGATIVE (NEGATIVE); COCAINE SCREEN,URINE NEGATIVE (NEGATIVE); OPIATE SCREEN,URINE NEGATIVE (NEGATIVE); PHENCYCLIDINE SCREEN,URINE NEGATIVE (NEGATIVE)
--- NOTE | 2025-01-28 13:13 | EKG ---
[facility] Test Date: 2025-01-27 Test Time: 21:16:44 Pat Name: MARTHA GUTIERREZ Department: [facility] Room: 232 1 Gender: M Director Of Anesthesia Services: [id number] : 1950 Requested By: TIM FELDER Order Number: [id number] Reading MD: Markel Buck Measurements Intervals Perkins Rate: 69 P: 30 KS: 364 QRS: 89 QRSD: 139 T: 51 QT: 425 QTc: 455 Interpretive Statements Sinus rhythm Prolonged KS interval Right bundle branch block Inferior infarct, old Compared to ECG 08/17/2024 16:09:56 Ectopic atrial rhythm no longer present Ventricular premature complex(es) no longer present Myocardial infarct finding still present Electronically Signed On 01-29-2025 17:43:54 CDT by Markel Buck Please click the below link to view image of tracing.
--- NOTE | 2025-01-28 13:22 | CONS ---
NEPHROLOGY CONSULTATION NOTE Date/Time Patient Seen: Jan 28, 2025 1230 Reason for Consultation: Hyponatremia HISTORY OF PRESENT ILLNESS: This is a 75-year-old male with a history of HTN, HDL, PVD, hard of hearing, and right BKA He presented to [facility] for wound evaluation. ED provider request patient be admitted with the diagnosis of dehydration, hyponatremia, and chronic anemia. He was noted with hyponatremia We have been consulted for hyponatremia Sodium this morning was mmol/L Medications were reviewed. He was seen in the medical floor, in no acute distress No family at the bedside Prognosis remains guarded REVIEW OF SYSTEMS: GENERAL: Negative for any nausea, vomiting, fevers, chills, or weight loss. NEUROLOGIC: Negative for any blurry vision, blind spots, double vision, facial asymmetry, dysphagia, dysarthria, hemiparesis, hemisensory deficits, vertigo, ataxia. HEENT: Negative for any head trauma, neck trauma, neck stiffness, photophobia, phonophobia, sinusitis, rhinitis. CARDIAC: Negative for any chest pain, dyspnea on exertion, paroxysmal nocturnal dyspnea, peripheral edema. PULMONARY: Negative for any shortness of breath, wheezing, COPD, or TB exposure. GASTROINTESTINAL: Negative for any abdominal pain, nausea, vomiting, bright red blood per rectum, melena. GENITOURINARY: Negative for any dysuria, hematuria, incontinence. INTEGUMENTARY: Negative for any rashes, cuts, insect bites. RHEUMATOLOGIC: Negative for any joint pains, photosensitive rashes, history of v asculitis or kidney problems. HEMATOLOGIC: Negative for any abnormal bruising, frequent infections or bleed ing. PAST MEDICAL HISTORY: Hyperlipidemia Hypertension PVD Hard of hearing PAST SURGICAL HISTORY: Right BKA PAST SOCIAL HISTORY: Drinks 2-3 beers every day for the at least 10 years. Smokes half a pack of cigarettes for at least 30 years. Denied any drug use. FAMILY HISTORY: Noncontributory PHYSICAL EXAM: GENERAL: Alert and oriented x 3. No acute distress. Well-nourished. EYES: EOMI. Anicteric. HENT: Moist mucous membranes. No scleral icterus. No cervical lymphadenopathy. LUNGS: Clear to auscultation bilaterally. No accessory muscle use. CARDIOVASCULAR: Regular rate and rhythm. No murmur. No JVD. ABDOMEN: Soft, non-tender and non-distended. No palpable masses. EXTREMITIES: No edema. Non-tender. SKIN: No rashes or lesions. Warm. NEUROLOGIC: No focal neurological deficits. CN II-XII grossly intact, but not individually tested. PSYCHIATRIC: Cooperative. Appropriate mood and affect. MEDICATIONS: [ ] Current Medications Medications (Trade) Dose Ordered Sig/Elliott Route PRN Reason Start Time Stop Time Status Last Admin Dose Admin Acetaminophen (TYLenol 325MG TAB) 650 mg Q6H PRN PO FEVER/MILD PAIN LEVEL 1-3 01/28/25 00:00 02/27/25 00:00 Acetaminophen (TYLenol 650MG SUPPOSITORY) 650 mg Q6H PRN RC FEVER / MILD PAIN 1-3 IF NPO 01/28/25 00:00 02/27/25 00:00 Atorvastatin Calcium (LIPItor 40MG) 40 mg HS PO 01/28/25 21:00 02/27/25 20:59 Clopidogrel Bisulfate (plaVIX 75MG) 75 mg DAILY PO 01/28/25 09:00 02/27/25 08:59 01/28/25 10:31 75 MG Docusate Sodium (COLace 100MG CAP) 100 mg BID PRN PO c 01/28/25 00:00 02/27/25 00:00 Famotidine (Pepcid 20mg Tab) 20 mg BID PO 01/28/25 09:00 02/27/25 08:59 01/28/25 10:31 20 MG Hydralazine HCl (APRESOLine 20MG INJ) 10 mg Q6H PRN IV SBP GREATER THAN 180 01/28/25 00:00 02/27/25 00:00 Insulin Human Regular (humuLIN R 100 UNIT/ML 3ML) INSULIN SLIDING SCAL... ACHS SQ 01/28/25 07:30 02/27/25 07:29 Lactulose (Constulose 20gm/ 30ml Udcup) 20 gm Q6H PRN PO CONSTIPATION 01/28/25 00:00 02/27/25 00:00 Lisinopril (Prinivil 40mg) 40 mg DAILY PO 01/29/25 09:00 02/28/25 08:59 Magnesium Sulfate 50 ml @ 0 mls/hr PROTOCOL PRN IV MAGNESIUM PROTOCOL 01/28/25 03:00 02/27/25 02:59 01/28/25 03:25 25 MLS/HR Metoprolol Succinate (TopROL XL) 50 mg DAILY PO 01/28/25 09:00 02/27/25 08:59 01/28/25 10:31 50 MG Ondansetron HCl (zoFRAN 4MG INJ) 4 mg Q6H PRN IVP NAUSEA/VOMITING 01/28/25 00:00 02/27/25 00:00 Potassium Chloride 100 ml @ 100 mls/hr AD PRN IV POTASSIUM PROTOCOL 01/28/25 03:00 02/27/25 02:59 01/28/25 03:25 100 MLS/HR Potassium Chloride (K-Dur/Klor-Con 20meq) 20 meq AD PRN PO POTASSIUM PROTOCOL 01/28/25 03:00 02/27/25 02:59 Potassium Chloride (KCl 10% Elixir 20meq/15ml) 20 meq AD PRN PO POTASSIUM PROTOCOL 01/28/25 03:00 02/27/25 02:59 Sodium Chloride 1,000 ml @ 100 mls/hr Q10H IV 01/27/25 22:00 01/28/25 11:43 DC 01/27/25 22:23 100 MLS/HR Sucralfate (Carafate) 1 gm QID PO 01/28/25 13:00 02/27/25 12:59 Temazepam (restORIL 15 MG CAP) 15 mg HS PRN PO INSOMNIA/SLEEP 01/28/25 00:00 02/27/25 00:00 Vital Signs (last 8hr) Date Time Temp Pulse Resp B/P (MAP) Pulse Ox O2 Delivery O2 Flow Rate FiO2 01/28/25 11:00 98.2 61 18 141/68 100 Room Air 01/28/25 07:00 97.5 65 17 145/87 100 Room Air DIAGNOSTICS / RADIOLOGY: REASON: sob ORDERING PHYSICIAN: TIM FELDER PROCEDURE: [id number] - CHEST 1VW INDICATION: sob TECHNIQUE: CHEST 1VW COMPARISON: 08/17/2024 FINDINGS AND IMPRESSION: Prominent bilateral interstitial markings which may represent bronchitis or vascular congestion in the proper clinical setting. Cardiac silhouette is within normal limits. Mild degenerative changes of the spine. Sternotomy wires are seen. DICTATED BY: DAWN SEYMOUR MD DATE: 01/27/252141 REASON: S/P FALL ORDERING PHYSICIAN: RADHA PACHECO MD PROCEDURE: [id number] - ELBOW 2VWS LT ELBOW 2VWS LT INDICATION: S/P FALL TECHNIQUE: ELBOW 2VWS LT. FINDINGS AND IMPRESSION: No displaced fracture or dislocation is seen. Correlate clinically. There is mild soft tissue swelling. Suboptimal lateral view. No radiopaque foreign body is identified. There is diffuse osteopenia limiting evaluation of the study. DICTATED BY: DAWN SEYMOUR MD DATE: 01/27/252047 LABORATORY: [ ] Hematology Labs: Test 01/28/25 02:18 01/27/25 20:29 Range/Units White Blood Count 8.5 4.8-10.8 K/uL Red Blood Count 2.53 L 4.50-6.20 MIL/uL Hemoglobin 7.9 L 14.0-18.0 g/dL Hematocrit 22.3 L 42-54 % Mean Corpuscular Volume 88.1 79-99 fL Mean Corpuscular Hemoglobin 31.2 27.0-33.0 pg Mean Corpuscular Hemoglobin Concent 35.4 32.0-36.0 g/dL Red Cell Distribution Width 13.8 11.0-15.5 % Platelet Count 224 130-400 K/uL Mean Platelet Volume 9.7 7.5-10.5 fL Nucleated Red Blood Cells 0.0 0.0-0.19 % Immature Granulocyte % (Auto) 0.3 0-1 % Neutrophils (%) (Auto) 80.1 H 40.0-77.0 % Lymphocytes (%) (Auto) 10.2 L 21.0-51.0 % Monocytes (%) (Auto) 8.5 3.0-13.0 % Eosinophils (%) (Auto) 0.3 0.0-8.0 % Basophils (%) (Auto) 0.6 0.0-5.0 % Neutrophils # (Auto) 8.7 H 1.8-7.7 K/uL Lymphocytes # (Auto) 1.1 1.0-4.8 K/uL Monocytes # (Auto) 0.9 0.1-1.0 K/uL Eosinophils # (Auto) 0.03 0.00-0.70 K/uL Basophils # (Auto) 0.06 0.00-0.20 K/uL Absolute Immature Granulocyte (auto 0.03 0-1 K/uL Chemistry Labs: Test 01/28/25 11:17 01/28/25 02:18 01/27/25 20:29 Range/Units Whole Blood Glucose 110 70-110 MG/DL Sodium Level 125 L 136-145 mmol/L Potassium Level 3.3 L 3.5-5.1 mmol/L Chloride Level 94 L 101-111 mmol/L Carbon Dioxide Level 23 21-32 mmol/L Blood Urea Nitrogen 9 7-18 mg/dL Creatinine 0.5 0.5-1.3 mg/dL Glomerular Filtration Rate Calc 105 >90 mL/min Random Glucose 91 70-105 mg/dL Hemoglobin A1c 5.1 4.0-6.0 % Estimated Average Glucose (eAG) 100 70-126 mg/dL Total Calcium 8.3 L 8.5-10.1 mg/dL Phosphorus Level 3.1 2.5-4.9 mg/dL Magnesium Level 1.60 L 1.80-2.40 mg/dL Thyroid Stimulating Hormone (TSH) 2.37 0.36-3.74 uIU/mL Total Creatine Kinase 76 21-232 U/L Troponin I High Sensitivity 18 4-75 ng/L B-Type Natriuretic Peptide 619 H 0-100 pg/mL Coagulation Labs: Test 01/28/25 02:18 Range/Units Prothrombin Time 11.5 9.6-11.6 SEC Prothromb Time International Ratio 1.09 0.85-1.15 Activated Partial Thromboplast Time 35.4 26.3-35.5 SEC ASSESSMENT: Acute on chronic hyponatremia Anemia and hypomagnesemia Multiple bleeding skin tears to bilateral upper extremities Elevated BNP Congestive heart failure, LVEF 35-40% per echo on 08/18/2024 Iron deficiency anemia/acute on chronic anemia Uncontrolled hypertension Cachexia Hypertension Hyperlipidemia Hard of hearing Chronic constipation PVD with right BKA Alcohol and tobacco abuse COPD PLAN: Labs, diagnostic, radiologic exams reviewed and interpreted by myself and supervising physician. We have reviewed external records in detail Obtain UA, urine electrolytes, urine creatinine, urine osmolality Start magnesium oxide 400 mg p.o. b.i.d. Potassium replacement has been ordered Discontinue IV fluids 1.5 L fluid restriction is recommended Require close monitoring of renal function and electrolytes Order CBC, CMP, complete iron panel, ferritin and electrolytes in am IV iron as needed BiPAP as necessary, for respiratory distress Monitor blood pressure adjust medication doses as needed Avoid hypotensive episodes May use Dilaudid 0.5 mg IV every 6 hours as needed for severe pain Monitor blood sugars Strict intake, output, and daily weight should be monitored Will continue to monitor renal function, anemia, electrolytes Treatment plan discussed with patient Questions were answered We have discussed with the other team physicians in detail about the care plan We will continue to monitor the patient closely Thank you for allowing us to participate in the care of this patient ATTESTATION BY PHYSICIAN I have seen and examined the patient. I reviewed the documentation, medical decision making, and treatment plan as noted by the mid-level provider above. I agree with the findings and plan of care. Patient has complicated medical problems and total time spent was more than 75 minutes MAU NERI MD, ELIZABETH FNP Jan 28, 2025 13:22 MAU NERI MD Jan 28, 2025 22:39
--- NOTE | 2025-01-28 13:39 | NUR ---
Discharge Planning: Patient lives with his spouse. Information provided by son-in-law, David Ruano, at . PCP is Dr. Jonathan Chan and preferred pharmacy is [facility] in [place]. Patient needs assistance with ADL's. No home health or provider services. States he has been trying to get a provider for his father-in law. Referral will be sent to [facility] for assistance with provider services. Patient has a w/c at home. No other DME. Patient is very hard of hearing but AAA X3. DCP is for home. Addendum: 01/28/25 at 1343 by NADER BEARD RN Amended: Links added.
[2025-01-28 15:18] LABS: CREATININE 0.5 mg/dL (0.5-1.3); POTASSIUM 3.7 mmol/L (3.5-5.1)
[2025-01-28 15:20] LABS: % IRON SATURATION 7.9 % (30-44)
[2025-01-28] MEDS: SUCRALFATE 1 GM TABLET PO SCH (15:54)
[2025-01-28] MEDS: acetaMINOPHEN 325 MG TAB PO PRN (15:54)
[2025-01-28] MEDS: PoTASSium chloRIDE 20MEQ ER 20 MEQ ERTAB PO PRN (15:55)
[2025-01-28] MEDS: atorVAStatin 40 MG TABLET PO SCH (20:24)
[2025-01-28] MEDS: MAGNESIUM OXIDE 400 MG TABLET PO SCH (20:24)
[2025-01-28 20:59] LABS: CREATININE 0.7 mg/dL (0.5-1.3); POTASSIUM 3.9 mmol/L (3.5-5.1)
[2025-01-29] VITALS (8 sets, daily range): BP systolic 139–173; BP diastolic 67–82; PULSE 64–84; RESP 16–18; TEMP 97.3–98.2; O2SAT 99–100
[2025-01-29 03:44] LABS: BASOPHILS # (AUTO) 0.04 K/uL (0.00-0.20); BASOPHILS % (AUTO) 0.5 % (0.0-5.0); EOSINOPHILS # (AUTO) 0.07 K/uL (0.00-0.70); EOSINOPHILS % (AUTO) 0.8 % (0.0-8.0); HEMATOCRIT 24.2 % (42-54); IMMATURE GRANULOCYTE ABSOLUTE 0.03 K/uL (0-1); LYMPHOCYTES # (AUTO) 1.3 K/uL (1.0-4.8); LYMPHOCYTES % (AUTO) 16.1 % (21.0-51.0); MEAN CORPUSCULAR HEMOGLOBIN 30.2 pg (27.0-33.0); MEAN CORPUSCULAR HGB CONC 33.5 g/dL (32.0-36.0); MEAN CORPUSCULAR VOLUME 90.3 fL (79-99); MONOCYTES # (AUTO) 0.9 K/uL (0.1-1.0); MONOCYTES % (AUTO) 10.4 % (3.0-13.0); NEUTROPHILS # (AUTO) 5.9 K/uL (1.8-7.7); NEUTROPHILS % (AUTO) 71.8 % (40.0-77.0); PLATELET COUNT (AUTO) 226 K/uL (130-400); RED BLOOD CELL COUNT(AUTO) 2.68 MIL/uL (4.50-6.20); RED CELL DISTRIBUTION WIDTH 14.1 % (11.0-15.5); WHITE BLOOD COUNT (AUTO) 8.2 K/uL (4.8-10.8)
[2025-01-29 04:13] LABS: ALBUMIN 3.1 g/dL (3.5-5.0); BILIRUBIN,TOTAL 0.7 mg/dL (0.2-1.0); CREATININE 0.5 mg/dL (0.5-1.3); MAGNESIUM 1.9 mg/dL (1.80-2.40); POTASSIUM 3.9 mmol/L (3.5-5.1); TOTAL PROTEIN, SERUM 6.6 g/dL (6.0-8.3); URIC ACID 2.5 mg/dL (2.6-7.2)
[2025-01-29] MEDS: LISINOPRIL 40 MG TABLET PO SCH (09:35)
--- NOTE | 2025-01-29 11:15 | PN ---
FOLLOWUP PROGRESS NOTE SUBJECTIVE: A 75-year-old male with history of diabetes mellitus and hypertension. The patient was initially admitted to the hospital and found to have significant electrolyte abnormalities including the hyponatremia. The patient's serum sodium has stabilized overnight. He has been encouraged with his fluid restriction and the patient is being seen as a followup visit for all of the above. REVIEW OF SYSTEMS: GENERAL: He is feeling weak and tired. HEENT: No change in vision. No change in adherence. CARDIOVASCULAR: There is no current chest pain, palpitations. PULMONARY: There is no shortness of breath. GASTROINTESTINAL: He is tolerating diet. MUSCULOSKELETAL: Complains of weakness. PHYSICAL EXAMINATION: VITAL SIGNS: Blood pressure 148/75, pulse in the 60s, afebrile. GENERAL: He is chronically ill male, lying in bed on the medical floor. HEENT: Head is atraumatic. Pupils equal, roving to light. Oropharynx is without exudate. Nares clear. NECK: There is no JVP. There is no thyromegaly, no mass. CARDIOVASCULAR: Regular. There is no S3 or S4 gallop. LUNGS: Coarse with equal thoracic movement. ABDOMEN: Soft, nondistended, nontender. EXTREMITIES: Reveal no clubbing, no cyanosis. NEUROLOGICAL: He is awake. He is alert. He is oriented. LABORATORY DATA: Sodium is 128, potassium 3.9, BUN 6, creatinine 0.5. Hemoglobin 8.1, hematocrit 24. IMPRESSION: * Renal dysfunction. * Hyponatremia. * Anemia. * Diabetes mellitus. PLAN: The patient will continue with the fluid restriction for the hyponatremia. IV fluids have been safely discontinued. The patient with significant anemia. The patient will be given a dose of IV iron while in the hospital and we will continue to monitor the patient closely. The patient does have a history of chronic hyponatremia. He is asymptomatic from a standpoint. No need for 3% saline at this time. TID: [id number] RECEIPT: [id number]
[2025-01-29] MEDS ORDERED: COMPOUND IV MISC 1 EACH IVSOLN MISC PRN (12:00)
--- NOTE | 2025-01-29 12:53 | PN ---
[facility] PROGRESS NOTE Date of Service: Jan 29, 2025 Time of Service: 12:45 SUBJECTIVE: [ 5-year-old male with a history of HTN, HDL, PVD, very hard of hearing, and right BKA who presented to [facility] [place] ED for wound evaluation. ED reported that the son noticed a skin tear to the left elbow that has not stop bleeding for the last two days. The son at bedside states he normally does not speak with his parents much so he was unsure what medications or what medical history the patient has. The patient has an obvious right BKA. ED provider request patient be admitted with the diagnosis of dehydration, hyponatremia, and chronic anemia. I went to assess the patient at bedside in room ED 3. The patient appeared comfortable, in no distress. Per chart review the patient has been intermittently hyponatremic sense 2018, and the patient is on Plavix. The patient was admitted on 08/17/2024 for the diagnosis of dehydration and hyponatremia. The patient was discharged on 08/24/2024. The patient is very hard of hearing, but is awake, alert, and oriented. I informed him of plan of care and he is in agreement with the plan. 01/28/2025. Patient was seen and examined no new complaints. Serum sodium 125. Awaiting urine electrolytes urine osmolality and serum osmolality results. ] 01/29/2025. Patient was seen and examined no new complaints. 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 Nephrology has seen the patient and cleared him for discharge they will follow the patient outpatient, patient had an episode of bradycardia metoprolol was held pending cardiology evaluation. REVIEW OF SYSTEMS Unable to obtain ROS from patient due to patient is very hard of hearing. PHYSICAL EXAM GENERAL APPEARANCE: The patient is awake, alert, and oriented, in no acute cardiopulmonary distress. NEUROLOGICAL: Cranial nerves II-XII grossly intact. Motor is 5/5 in bilateral upper and lower extremities proximal to distal. No sensory deficits. HEENT: Face is symmetric. Pupils are equal and reactive. Extraocular movements are intact. NECK: Supple. No JVD. No thyromegaly. No submental, submandibular, pre- /postauricular, occipital or supraclavicular lymphadenopathy. CHEST: Normal chest expansion. No Telemetry. LUNGS: Absence of any rales, rhonchi or any wheezing. CARDIOVASCULAR: Regular. S1 and S2 normal. No appreciable rubs, murmurs or gallops. ABDOMEN: Soft, nontender, and nondistended. There is no rebound, voluntary guarding, or rigidity. : Deferred. No Mckeon. EXTREMITIES: Right BKA. Multiple skin tears to bilateral upper extremities with controlled bleeding. Non-edematous and not cyanotic. No clubbing. Good capillary refill. SKIN: No skin breakdown. Vital Signs (last 8hr) Date Time Temp Pulse Resp B/P (MAP) Pulse Ox O2 Delivery O2 Flow Rate FiO2 01/29/25 11:00 97.7 66 17 145/74 100 Room Air 01/29/25 08:00 100 Room Air* 0 21 01/29/25 07:00 97.3 66 17 148/75 100 Room Air LABS: Laboratory: Test 01/29/25 11:14 01/29/25 03:23 01/28/25 14:45 01/28/25 11:12 Range/Units Whole Blood Glucose 110 70-110 MG/DL White Blood Count 8.2 4.8-10.8 K/uL Red Blood Count 2.68 L 4.50-6.20 MIL/uL Hemoglobin 8.1 L 14.0-18.0 g/dL Hematocrit 24.2 L 42-54 % Mean Corpuscular Volume 90.3 79-99 fL Mean Corpuscular Hemoglobin 30.2 27.0-33.0 pg Mean Corpuscular Hemoglobin Concent 33.5 32.0-36.0 g/dL Red Cell Distribution Width 14.1 11.0-15.5 % Platelet Count 226 130-400 K/uL Mean Platelet Volume 9.7 7.5-10.5 fL Immature Granulocyte % (Auto) 0.4 0-1 % Neutrophils (%) (Auto) 71.8 40.0-77.0 % Lymphocytes (%) (Auto) 16.1 L 21.0-51.0 % Monocytes (%) (Auto) 10.4 3.0-13.0 % Eosinophils (%) (Auto) 0.8 0.0-8.0 % Basophils (%) (Auto) 0.5 0.0-5.0 % Neutrophils # (Auto) 5.9 1.8-7.7 K/uL Lymphocytes # (Auto) 1.3 1.0-4.8 K/uL Monocytes # (Auto) 0.9 0.1-1.0 K/uL Eosinophils # (Auto) 0.07 0.00-0.70 K/uL Basophils # (Auto) 0.04 0.00-0.20 K/uL Absolute Immature Granulocyte (auto 0.03 0-1 K/uL Nucleated Red Blood Cells 0.0 0.0-0.19 % Sodium Level 128 L 136-145 mmol/L Potassium Level 3.9 3.5-5.1 mmol/L Chloride Level 96 L 101-111 mmol/L Carbon Dioxide Level 24 21-32 mmol/L Blood Urea Nitrogen 6 L 7-18 mg/dL Creatinine 0.5 0.5-1.3 mg/dL Glomerular Filtration Rate Calc 105 >90 mL/min Random Glucose 84 70-105 mg/dL Uric Acid 2.5 L 2.6-7.2 mg/dL Total Calcium 8.7 8.5-10.1 mg/dL Magnesium Level 1.90 1.80-2.40 mg/dL Ferritin 38 30-400 ng/mL Total Bilirubin 0.7 0.2-1.0 mg/dL Aspartate Amino Transf (AST/SGOT) 23 10-37 U/L Alanine Aminotransferase (ALT/SGPT) 12 12-78 U/L Alkaline Phosphatase 118 50-136 U/L Total Protein 6.6 6.0-8.3 g/dL Albumin 3.1 L 3.5-5.0 g/dL Iron Level 19 #L 65-175 mcg/dL Total Iron Binding Capacity 239 L 250-450 mcg/dL Percent Iron Saturation 7.9 L 30-44 % Urine Color LIGHT-YELLOW YELLOW Urine Appearance CLEAR CLEAR Urine pH 6.5 5.0-8.0 Urine Specific Wiggins 1.009 1.001-1.031 Urine Protein NEGATIVE NEGATIVE mg/dL Urine Glucose (UA) NEGATIVE NEGATIVE mg/dL Urine Ketones NEGATIVE NEGATIVE mg/dL Urine Occult Blood NEGATIVE NEGATIVE Urine Nitrate NEGATIVE NEGATIVE Urine Bilirubin NEGATIVE NEGATIVE mg/dL Urine Urobilinogen 0.2 0.2-1.0 mg/dL Urine Leukocyte Esterase NEGATIVE NEGATIVE Louis/uL Urine RBC 0-1 0-1 /HPF Urine WBC 0-1 0-1 /HPF Urine Bacteria None None Seen /HPF Urine Random Creatinine 20.42 L 30-135 mg/dL Urine Random Sodium 108 40-220 mmol/l Urine Random Potassium 22 L 25-125 mmol/L Urine Random Chloride 127 110-250 mmol/L Urine Opiates Screen NEGATIVE NEGATIVE Urine Barbiturates Screen NEGATIVE NEGATIVE Urine Phencyclidine Screen NEGATIVE NEGATIVE Urine Amphetamines Screen NEGATIVE NEGATIVE Urine Benzodiazepines Screen NEGATIVE NEGATIVE Urine Cocaine Screen NEGATIVE NEGATIVE Urine Marijuana (THC) Screen NEGATIVE NEGATIVE Test 01/28/25 02:18 01/27/25 20:29 Range/Units Prothrombin Time 11.5 9.6-11.6 SEC Prothromb Time International Ratio 1.09 0.85-1.15 Activated Partial Thromboplast Time 35.4 26.3-35.5 SEC Hemoglobin A1c 5.1 4.0-6.0 % Estimated Average Glucose (eAG) 100 70-126 mg/dL Phosphorus Level 3.1 2.5-4.9 mg/dL Thyroid Stimulating Hormone (TSH) 2.37 0.36-3.74 uIU/mL Serum Alcohol < 3 0-10 mg/dL Total Creatine Kinase 76 21-232 U/L Troponin I High Sensitivity 18 4-75 ng/L B-Type Natriuretic Peptide 619 H 0-100 pg/mL Current Medications Medications (Trade) Dose Ordered Sig/Elliott Route PRN Reason Start Time Stop Time Status Last Admin Dose Admin Acetaminophen (TYLenol 325MG TAB) 650 mg Q6H PRN PO FEVER/MILD PAIN LEVEL 1-3 01/28/25 00:00 02/27/25 00:00 01/28/25 15:54 650 MG Acetaminophen (TYLenol 650MG SUPPOSITORY) 650 mg Q6H PRN RC FEVER / MILD PAIN 1-3 IF NPO 01/28/25 00:00 02/27/25 00:00 Atorvastatin Calcium (LIPItor 40MG) 40 mg HS PO 01/28/25 21:00 02/27/25 20:59 01/28/25 20:24 40 MG Clopidogrel Bisulfate (plaVIX 75MG) 75 mg DAILY PO 01/28/25 09:00 02/27/25 08:59 01/29/25 09:35 75 MG Docusate Sodium (COLace 100MG CAP) 100 mg BID PRN PO c 01/28/25 00:00 02/27/25 00:00 Famotidine (Pepcid 20mg Tab) 20 mg BID PO 01/28/25 09:00 02/27/25 08:59 01/29/25 09:35 20 MG Hydralazine HCl (APRESOLine 20MG INJ) 10 mg Q6H PRN IV SBP GREATER THAN 180 01/28/25 00:00 02/27/25 00:00 Insulin Human Regular (humuLIN R 100 UNIT/ML 3ML) INSULIN SLIDING SCAL... ACHS SQ 01/28/25 07:30 02/27/25 07:29 Lactulose (Constulose 20gm/ 30ml Udcup) 20 gm Q6H PRN PO CONSTIPATION 01/28/25 00:00 02/27/25 00:00 Lisinopril (Prinivil 40mg) 40 mg DAILY PO 01/29/25 09:00 02/28/25 08:59 01/29/25 09:35 40 MG Magnesium Oxide (Mag-Ox) 400 mg BID PO 01/28/25 21:00 02/27/25 20:59 01/29/25 09:35 400 MG Magnesium Sulfate 50 ml @ 0 mls/hr PROTOCOL PRN IV MAGNESIUM PROTOCOL 01/28/25 03:00 02/27/25 02:59 01/28/25 03:25 25 MLS/HR Metoprolol Succinate (TopROL XL) 50 mg DAILY PO 01/28/25 09:00 01/29/25 08:28 DC 01/28/25 10:31 50 MG Ondansetron HCl (zoFRAN 4MG INJ) 4 mg Q6H PRN IVP NAUSEA/VOMITING 01/28/25 00:00 02/27/25 00:00 Potassium Chloride 100 ml @ 100 mls/hr AD PRN IV POTASSIUM PROTOCOL 01/28/25 03:00 02/27/25 02:59 01/28/25 03:25 100 MLS/HR Potassium Chloride (K-Dur/Klor-Con 20meq) 20 meq AD PRN PO POTASSIUM PROTOCOL 01/28/25 03:00 02/27/25 02:59 01/28/25 18:39 20 MEQ Potassium Chloride (KCl 10% Elixir 20meq/15ml) 20 meq AD PRN PO POTASSIUM PROTOCOL 01/28/25 03:00 02/27/25 02:59 Sodium Chloride 1,000 ml @ 100 mls/hr Q10H IV 01/27/25 22:00 01/28/25 11:43 DC 01/27/25 22:23 100 MLS/HR Sucralfate (Carafate) 1 gm QID PO 01/28/25 13:00 02/27/25 12:59 01/29/25 09:35 1 GM Temazepam (restORIL 15 MG CAP) 15 mg HS PRN PO INSOMNIA/SLEEP 01/28/25 00:00 02/27/25 00:00 DIAGNOSTICS / RADIOLOGY: [ ] ASSESSMENT: Acute on chronic hyponatremia, POA, suspect alcohol-induced hyponatremia Electrolyte derangement (hyponatremia, hypochloremia, hypokalemia, hypomagnesemia) Multiple bleeding skin tears to bilateral upper extremities, POA, on Plavix Elevated BNP Congestive heart failure, LVEF 35-40% per echo on 08/18/2024 Iron deficiency anemia/acute on chronic anemia Uncontrolled hypertension Cachexia Chronic problem list: HTN, HDL, PVD, very hard of hearing, and right BKA, chronic constipation PVD with history of Abdominal aortogram with peripheral runoff of the left lower extremity, directional arthrectomy and drug coated angioplasty of the left distal L SFA artery and L TP artery and covered stent placement in the left peritoneal artery in 11/23/[address] Roney Acuña. On Plavix Alcohol and tobacco abuse COPD, on Breyna 80/4.5 Right foot gangrene/osteomyelitis s/p right BKA done on 11/28/[address] Dominguez History of Protein calorie malnutrition PLAN: Serum today. Cleared from Nephrology point of view for discharge. Patient had episode of bradycardia metoprolol was held awaiting cardiology input. Iron-deficiency anemia on IV Venofer Start home medications from external med rec: Metoprolol succinate(was held), atorvastatin, Plavix, Breyna. Keep Upper extremity skin tears clean and dry, wound care by nursing. Follow iron studies if found to have iron-deficiency anemia we will replace with IV iron. GI DVT prophylaxis per protocol CAT MI MD Jan 29, 2025 12:53
--- NOTE | 2025-01-29 18:27 | CONS ---
Nearly deaf 75-year-old gentleman is under evaluation for hyponatremia and peripheral arterial disease and poorly healing ulcers on his left knee and mccoy, has a BNP of more than 600 and his chest x-ray shows pulmonary vascular engorgement without significant infiltrates. While here, he developed AV Wenckebach without significant bradycardia or symptoms. Patient denies chest pain or chest pressure, shortness of breath, lightheadedness or dizziness or weakness. Renal service is consulting for hyponatremia and volume management. Review of previous records from our office demonstrates the patient had an anterior infarct several years ago. At last visit in our office in 2019 his ejection fraction was recorded as 45%. He had been followed for peripheral arterial disease with procedures performed on his right lower extremity; now he has had a right above knee amputation and has significant peripheral vascular disease affecting the left lower extremity. Review of systems is very difficult because of deafness, but the pertinent findings are as described above. Physical exam shows a thin elderly male who appears quite frail with no JVD, fair carotid volume, no rales or rhonchi, nonlabored respiration, preserved S1 and S2, no murmur, scaphoid abdomen, normal bowel sounds, absent pulses in his legs with right above knee amputation. Skin is notable for a couple of ulcers on the left mccoy and knee, and the left lower extremity digits are sausage like and appear chronically ischemic with ischemic dermatitis over the toes and dorsum of the foot. I reviewed the patient's rhythm strips and they demonstrate AV Wenckebach without significant bradycardia or prolonged pauses. Impression and recommendation: Patient may be mildly volume overloaded as I believe his elevation of BNP is associated with pulmonary engorgement and I believe his vascularity is somewhat engorged on chest x-ray, if this was an upright film. Given that he also has severe hyponatremia, renal service is best a pointed to control volume and sodium. I would not recommend any further evaluation or treatment of the arrhythmia. [facility] will follow through on the echocardiogram result. Patient History: Cardiovascular disease MOTHER (HEART ATTACK) FATHER (HEART ATTACK) BROTHER (HEART ATTACK) SISTER (HEART ATTACK) Completed stroke BROTHER SISTER Diabetes mellitus MOTHER FATHER BROTHER SISTER Vitals/Labs Vital Signs Date Time Temp Pulse Resp B/P (MAP) Pulse Ox O2 Delivery O2 Flow Rate FiO2 01/29/25 15:30 98.2 69 18 139/67 99 Room Air 01/29/25 08:00 0 21 Laboratory Tests 01/28/25 20:30 01/29/25 03:23 Allergies: Coded Allergies: Penicillins (Unverified Allergy, Unknown, 05/08/19) Medications Current Medications Sodium Chloride 1,000 ml @ 100 mls/hr Q10H IV Last administered on 01/27/25at 22:23; Start 01/27/25 at 22:00; Stop 01/28/25 at 11:43; Status DC Famotidine 20 mg BID PO Last administered on 01/29/25at 09:35; Start 01/28/25 at 09:00; Stop 02/27/25 at 08:59 Acetaminophen 650 mg Q6H PRN PO Last administered on 01/28/25at 15:54; Start 01/28/25 at 00:00; Stop 02/27/25 at 00:00 Acetaminophen 650 mg Q6H PRN RC; Start 01/28/25 at 00:00; Stop 02/27/25 at 00:00 Lactulose 20 gm Q6H PRN PO; Start 01/28/25 at 00:00; Stop 02/27/25 at 00:00 Docusate Sodium 100 mg BID PRN PO; Start 01/28/25 at 00:00; Stop 02/27/25 at 00:00 Temazepam 15 mg HS PRN PO; Start 01/28/25 at 00:00; Stop 02/27/25 at 00:00 Ondansetron HCl 4 mg Q6H PRN IVP; Start 01/28/25 at 00:00; Stop 02/27/25 at 00:00 Hydralazine HCl 10 mg Q6H PRN IV; Start 01/28/25 at 00:00; Stop 02/27/25 at 00:00 Insulin Human Regular INSULIN SLIDING SCAL... ACHS SQ; Start 01/28/25 at 07:30; Stop 02/27/25 at 07:29 Potassium Chloride 100 ml @ 100 mls/hr AD PRN IV Last administered on 01/28/25at 03:25; Start 01/28/25 at 03:00; Stop 02/27/25 at 02:59 Potassium Chloride 20 meq AD PRN PO; Start 01/28/25 at 03:00; Stop 02/27/25 at 02:59 Potassium Chloride 20 meq AD PRN PO Last administered on 01/28/25at 18:39; Start 01/28/25 at 03:00; Stop 02/27/25 at 02:59 Magnesium Sulfate 50 ml @ 0 mls/hr PROTOCOL PRN IV Last administered on 01/28/25at 03:25; Start 01/28/25 at 03:00; Stop 02/27/25 at 02:59 Sodium Chloride 1,000 mg ONCE ONCE PO Last administered on 01/28/25at 10:31; Start 01/28/25 at 07:30; Stop 01/28/25 at 13:14; Status DC Metoprolol Succinate 50 mg DAILY PO Last administered on 01/28/25at 10:31; Start 01/28/25 at 09:00; Stop 01/29/25 at 08:28; Status DC Atorvastatin Calcium 40 mg HS PO Last administered on 01/28/25at 20:24; Start 01/28/25 at 21:00; Stop 02/27/25 at 20:59 Clopidogrel Bisulfate 75 mg DAILY PO Last administered on 01/29/25at 09:35; Start 01/28/25 at 09:00; Stop 02/27/25 at 08:59 Sucralfate 1 gm QID PO Last administered on 01/29/25at 14:26; Start 01/28/25 at 13:00; Stop 02/27/25 at 12:59 Lisinopril 40 mg DAILY PO Last administered on 01/29/25at 09:35; Start 01/29/25 at 09:00; Stop 02/28/25 at 08:59 Magnesium Oxide 400 mg BID PO Last administered on 01/29/25at 09:35; Start 01/28/25 at 21:00; Stop 02/27/25 at 20:59 Iron Sucrose 300 mg/Sodium Chloride 250 ml @ 83 mls/hr ONCE ONCE IV; Start 01/29/25 at 21:00; Stop 01/30/25 at 00:00 ANGIE HUIZAR MD Jan 29, 2025 18:27
[2025-01-29] MEDS: IRON sUCROse COMPLEX 300 MG in 0.9% NACL 250ML 250 ML IV ONE (21:03)
[2025-01-30] VITALS (8 sets, daily range): BP systolic 141–176; BP diastolic 50–87; PULSE 62–94; RESP 16–20; TEMP 97.5–98.6; O2SAT 99
--- NOTE | 2025-01-30 08:49 | PN ---
FOLLOWUP PROGRESS NOTE SUBJECTIVE: A 75-year-old male with a history of diabetes mellitus and hypertension. He has a history of known vascular disease. The patient with a history of known chronic hyponatremia. 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 The patient also with a history of underlying vascular disease and is being seen by Cardiology. The patient is being seen as a followup visit for all of the above. REVIEW OF SYSTEMS: GENERAL: The patient is feeling weak and tired. HEENT: No change in vision, no change in hearing. CARDIOVASCULAR: There is no current chest pains or palpitations. PULMONARY: He denies any shortness of breath. GASTROINTESTINAL: He is tolerating a diet. MUSCULOSKELETAL: Complains of weakness. PHYSICAL EXAMINATION: VITAL SIGNS: Blood pressure 164/69, pulse 70s, afebrile. GENERAL: He is a chronically ill male, elderly, lying in bed on the medical floor. HEENT: Head is atraumatic. Pupils are equal, roving to light. Oropharynx is without exudate. Nares clear. NECK: There is no JVP. There is no thyromegaly, no mass. CARDIOVASCULAR: Regular. There is no S3 or S4 gallop. LUNGS: Coarse with equal thoracic movement. ABDOMEN: Soft, nondistended, and nontender. EXTREMITIES: Reveal no clubbing, no cyanosis. NEUROLOGICAL: He is awake, he is alert. He is at his baseline. LABORATORY DATA: Sodium 128, BUN 6, creatinine 0.5. IMPRESSION: * Renal dysfunction. * Hyponatremia. * Anemia. * Hypertension. PLAN: The patient with chronic hyponatremia. He is encouraged with the fluid restriction. The patient with significant hypertension. We will add Norvasc to the medical regimen. The patient will be given an additional dose of IV iron. We will follow closely. TID: [id number] RECEIPT: [id number]
[2025-01-30] MEDS: amLODIPine 5 MG TAB PO SCH (09:31)
[2025-01-30 11:21] LABS: ALBUMIN 3.1 g/dL (3.5-5.0); BILIRUBIN,TOTAL 0.6 mg/dL (0.2-1.0); CREATININE 0.7 mg/dL (0.5-1.3); POTASSIUM 3.3 mmol/L (3.5-5.1); TOTAL PROTEIN, SERUM 6.8 g/dL (6.0-8.3)
--- NOTE | 2025-01-30 13:22 | NUR ---
MEDICATION RECONCILIATION SPOKE WITH DR INGRAM ABOUT UPDATING HOME MEDICATIONS. I CALLED [facility] TO VERIFY HOME MEDICATIONS CURRENTLY ON. DR. INGRAM STATED SHE WOULD UPDATE AND RECONCILE HOME MEDS.
--- NOTE | 2025-01-30 14:43 | PN ---
[facility] PROGRESS NOTE Date of Service: Jan 30, 2025 Time of Service: 14:25 SUBJECTIVE: 75-year-old male with a history of HTN, HDL, PVD, very hard of hearing, and right BKA who presented to [facility] [place] ED for wound evaluation. ED reported that the son noticed a skin tear to the left elbow that has not stop bleeding for the last two days. The son at bedside states he normally does not speak with his parents much so he was unsure what medications or what medical history the patient has. The patient has an obvious right BKA. ED provider request patient be admitted with the diagnosis of dehydration, hyponatremia, and chronic anemia. I went to assess the patient at bedside in room ED 3. The patient appeared comfortable, in no distress. Per chart review the patient has been intermittently hyponatremic sense 2018, and the patient is on Plavix. The patient was admitted on 08/17/2024 for the diagnosis of dehydration and hyponatremia. The patient was discharged on 08/24/2024. The patient is very hard of hearing, but is awake, alert, and oriented. I informed him of plan of care and he is in agreement with the plan. 01/28/2025. Patient was seen and examined no new complaints. Serum sodium 125. Awaiting urine electrolytes urine osmolality and serum osmolality results. ] 01/29/2025. Patient was seen and examined no new complaints. Serum [id number] urine sodium was 108, may have a component of SIADH, he has systolic heart failure which makes it very difficult to treat with salt tablets. Nephrology has seen the patient and cleared him for discharge they will follow the patient outpatient, patient had an episode of bradycardia metoprolol was held pending cardiology evaluation. 01/30/2025-patient was seen at that is bedside no new complaints noted. Serum sodium 126, potassium 3.3 on protocol. Nephrology advised fluid restriction and added amlodipine for hypertension and IV iron for iron-deficiency anemia. Cardiology advised no evaluation or treatment for arrhythmia which was noted for Mobitz type 1 av block And advised follow up at [facility] for further management and follow up on echo. Advised to hold on metoprolol. REVIEW OF SYSTEMS Unable to obtain ROS from patient due to patient is very hard of hearing. PHYSICAL EXAM GENERAL APPEARANCE: The patient is awake, alert, and oriented, in no acute cardiopulmonary distress. NEUROLOGICAL: Cranial nerves II-XII grossly intact. Motor is 5/5 in bilateral upper and lower extremities proximal to distal. No sensory deficits. HEENT: Face is symmetric. Pupils are equal and reactive. Extraocular movements are intact. NECK: Supple. No JVD. No thyromegaly. No submental, submandibular, pre- /postauricular, occipital or supraclavicular lymphadenopathy. CHEST: Normal chest expansion. No Telemetry. LUNGS: Absence of any rales, rhonchi or any wheezing. CARDIOVASCULAR: Regular. S1 and S2 normal. No appreciable rubs, murmurs or gallops. ABDOMEN: Soft, nontender, and nondistended. There is no rebound, voluntary guarding, or rigidity. : Deferred. No Mckeon. EXTREMITIES: Right BKA. Multiple skin tears to bilateral upper extremities with controlled bleeding. Non-edematous and not cyanotic. No clubbing. Good capillary refill. SKIN: No skin breakdown. Vital Signs (last 8hr) Date Time Temp Pulse Resp B/P (MAP) Pulse Ox O2 Delivery O2 Flow Rate FiO2 01/30/25 12:00 97.5 62 17 147/50 100 Room Air 01/30/25 10:58 99 Room Air* 0 21 01/30/25 08:00 98.1 87 17 165/61 96 Room Air LABS: Laboratory: Test 01/30/25 11:10 01/30/25 10:33 01/29/25 03:23 01/28/25 14:45 Range/Units Whole Blood Glucose 82 70-110 MG/DL Sodium Level 126 L 136-145 mmol/L Potassium Level 3.3 L 3.5-5.1 mmol/L Chloride Level 92 L 101-111 mmol/L Carbon Dioxide Level 26 21-32 mmol/L Blood Urea Nitrogen 9 7-18 mg/dL Creatinine 0.7 0.5-1.3 mg/dL Glomerular Filtration Rate Calc 95 >90 mL/min Random Glucose 90 70-105 mg/dL Total Calcium 8.5 8.5-10.1 mg/dL Total Bilirubin 0.6 0.2-1.0 mg/dL Aspartate Amino Transf (AST/SGOT) 26 10-37 U/L Alanine Aminotransferase (ALT/SGPT) 13 12-78 U/L Alkaline Phosphatase 119 50-136 U/L Total Protein 6.8 6.0-8.3 g/dL Albumin 3.1 L 3.5-5.0 g/dL White Blood Count 8.2 4.8-10.8 K/uL Red Blood Count 2.68 L 4.50-6.20 MIL/uL Hemoglobin 8.1 L 14.0-18.0 g/dL Hematocrit 24.2 L 42-54 % Mean Corpuscular Volume 90.3 79-99 fL Mean Corpuscular Hemoglobin 30.2 27.0-33.0 pg Mean Corpuscular Hemoglobin Concent 33.5 32.0-36.0 g/dL Red Cell Distribution Width 14.1 11.0-15.5 % Platelet Count 226 130-400 K/uL Mean Platelet Volume 9.7 7.5-10.5 fL Immature Granulocyte % (Auto) 0.4 0-1 % Neutrophils (%) (Auto) 71.8 40.0-77.0 % Lymphocytes (%) (Auto) 16.1 L 21.0-51.0 % Monocytes (%) (Auto) 10.4 3.0-13.0 % Eosinophils (%) (Auto) 0.8 0.0-8.0 % Basophils (%) (Auto) 0.5 0.0-5.0 % Neutrophils # (Auto) 5.9 1.8-7.7 K/uL Lymphocytes # (Auto) 1.3 1.0-4.8 K/uL Monocytes # (Auto) 0.9 0.1-1.0 K/uL Eosinophils # (Auto) 0.07 0.00-0.70 K/uL Basophils # (Auto) 0.04 0.00-0.20 K/uL Absolute Immature Granulocyte (auto 0.03 0-1 K/uL Nucleated Red Blood Cells 0.0 0.0-0.19 % Uric Acid 2.5 L 2.6-7.2 mg/dL Magnesium Level 1.90 1.80-2.40 mg/dL Ferritin 38 30-400 ng/mL Iron Level 19 #L 65-175 mcg/dL Total Iron Binding Capacity 239 L 250-450 mcg/dL Percent Iron Saturation 7.9 L 30-44 % Current Medications Medications (Trade) Dose Ordered Sig/Elliott Route PRN Reason Start Time Stop Time Status Last Admin Dose Admin Acetaminophen (TYLenol 325MG TAB) 650 mg Q6H PRN PO FEVER/MILD PAIN LEVEL 1-3 01/28/25 00:00 02/27/25 00:00 01/28/25 15:54 650 MG Acetaminophen (TYLenol 650MG SUPPOSITORY) 650 mg Q6H PRN RC FEVER / MILD PAIN 1-3 IF NPO 01/28/25 00:00 02/27/25 00:00 Amlodipine Besylate (NorvASC 5MG TAB) 5 mg DAILY PO 01/30/25 09:00 03/01/25 08:59 01/30/25 09:31 5 MG Atorvastatin Calcium (LIPItor 40MG) 40 mg HS PO 01/28/25 21:00 02/27/25 20:59 01/29/25 21:04 40 MG Clopidogrel Bisulfate (plaVIX 75MG) 75 mg DAILY PO 01/28/25 09:00 02/27/25 08:59 01/30/25 09:31 75 MG Docusate Sodium (COLace 100MG CAP) 100 mg BID PRN PO c 01/28/25 00:00 02/27/25 00:00 Famotidine (Pepcid 20mg Tab) 20 mg BID PO 01/28/25 09:00 02/27/25 08:59 01/30/25 09:31 20 MG Hydralazine HCl (APRESOLine 20MG INJ) 10 mg Q6H PRN IV SBP GREATER THAN 180 01/28/25 00:00 02/27/25 00:00 Insulin Human Regular (humuLIN R 100 UNIT/ML 3ML) INSULIN SLIDING SCAL... ACHS SQ 01/28/25 07:30 02/27/25 07:29 Lactulose (Constulose 20gm/ 30ml Udcup) 20 gm Q6H PRN PO CONSTIPATION 01/28/25 00:00 02/27/25 00:00 Lisinopril (Prinivil 40mg) 40 mg DAILY PO 01/29/25 09:00 02/28/25 08:59 01/30/25 09:31 40 MG Magnesium Oxide (Mag-Ox) 400 mg BID PO 01/28/25 21:00 02/27/25 20:59 01/30/25 09:31 400 MG Magnesium Sulfate 50 ml @ 0 mls/hr PROTOCOL PRN IV MAGNESIUM PROTOCOL 01/28/25 03:00 02/27/25 02:59 01/28/25 03:25 25 MLS/HR Metoprolol Succinate (TopROL XL) 50 mg DAILY PO 01/28/25 09:00 01/29/25 08:28 DC 01/28/25 10:31 50 MG Ondansetron HCl (zoFRAN 4MG INJ) 4 mg Q6H PRN IVP NAUSEA/VOMITING 01/28/25 00:00 02/27/25 00:00 Potassium Chloride 100 ml @ 100 mls/hr AD PRN IV POTASSIUM PROTOCOL 01/28/25 03:00 02/27/25 02:59 01/28/25 03:25 100 MLS/HR Potassium Chloride (K-Dur/Klor-Con 20meq) 20 meq AD PRN PO POTASSIUM PROTOCOL 01/28/25 03:00 02/27/25 02:59 01/28/25 18:39 20 MEQ Potassium Chloride (KCl 10% Elixir 20meq/15ml) 20 meq AD PRN PO POTASSIUM PROTOCOL 01/28/25 03:00 02/27/25 02:59 Sodium Chloride 1,000 ml @ 100 mls/hr Q10H IV 01/27/25 22:00 01/28/25 11:43 DC 01/27/25 22:23 100 MLS/HR Sucralfate (Carafate) 1 gm QID PO 01/28/25 13:00 01/30/25 13:22 DC 01/30/25 09:31 1 GM Temazepam (restORIL 15 MG CAP) 15 mg HS PRN PO INSOMNIA/SLEEP 01/28/25 00:00 02/27/25 00:00 DIAGNOSTICS / RADIOLOGY: [ ] ASSESSMENT: Acute on chronic hyponatremia, POA, suspect alcohol-induced hyponatremia Electrolyte derangement (hyponatremia, hypochloremia, hypokalemia, hypomagnesemia) Multiple bleeding skin tears to bilateral upper extremities, POA, on Plavix Elevated BNP Acute on chronic Congestive heart failure, LVEF 35-40% per echo on 08/18/2024 Iron deficiency anemia/acute on chronic anemia Uncontrolled hypertension Cachexia Chronic problem list: HTN, HDL, PVD, very hard of hearing, and right BKA, chronic constipation PVD with history of Abdominal aortogram with peripheral runoff of the left lower extremity, directional arthrectomy and drug coated angioplasty of the left distal L SFA artery and L TP artery and covered stent placement in the left peritoneal artery in 11/23/[address] Roney Acuña. On Plavix Alcohol and tobacco abuse COPD, on Breyna 80/4.5 Right foot gangrene/osteomyelitis s/p right BKA done on 11/28/[address] Dominguez History of Protein calorie malnutrition PLAN: Serum [id number] today. Patient had episode of bradycardia, advised to hold on metoprolol recommended per Cardiology. Iron-deficiency anemia on IV Venofer Start home medications from external med rec: Metoprolol succinate(was held), atorvastatin, Plavix, Breyna. Keep Upper extremity skin tears clean and dry, wound care by nursing. Follow iron studies if found to have iron-deficiency anemia we will replace with IV iron. GI DVT prophylaxis per protocol ATTESTATION BY PHYSICIAN I have seen and examined the patient. I reviewed the documentation, medical decision making, and treatment plan as noted by the mid-level provider above. I agree with the findings and plan of care. Monika Presley AISHWARYA MD Jan 30, 2025 14:43
[2025-01-30] MEDS: PoTASSium chl 10% ELIXIR 20MEQ 20 MEQ/15 ML UDCUP PO PRN (14:53)
--- NOTE | 2025-01-30 17:08 | PN ---
No change in clinical status since yesterday. Patient does not appear short of breath at rest. He is not very forthcoming with interview and not very cooperative with exam. Neck veins are not distended. Diffusely diminished breath sounds noted. Nonlabored respiration. Diminished intensity of S1 and S2. Echocardiogram has not been performed as yet. Remains hyponatremic and hypokalemic. I will follow through on the echocardiogram when it is done; apparently it has not been performed yet. I will defer to renal service to manage electrolytes and volume status. I will check chest x-ray and BNP tomorrow morning to assess progress Vitals/Labs Vital Signs Date Time Temp Pulse Resp B/P (MAP) Pulse Ox O2 Delivery O2 Flow Rate FiO2 01/30/25 12:00 97.5 62 17 147/50 100 Room Air 01/30/25 10:58 0 21 Laboratory Tests 01/30/25 10:33 Medications Current Medications Sodium Chloride 1,000 ml @ 100 mls/hr Q10H IV Last administered on 01/27/25at 22:23; Start 01/27/25 at 22:00; Stop 01/28/25 at 11:43; Status DC Famotidine 20 mg BID PO Last administered on 01/30/25at 09:31; Start 01/28/25 at 09:00; Stop 02/27/25 at 08:59 Acetaminophen 650 mg Q6H PRN PO Last administered on 01/28/25at 15:54; Start 01/28/25 at 00:00; Stop 02/27/25 at 00:00 Acetaminophen 650 mg Q6H PRN RC; Start 01/28/25 at 00:00; Stop 02/27/25 at 00:00 Lactulose 20 gm Q6H PRN PO; Start 01/28/25 at 00:00; Stop 02/27/25 at 00:00 Docusate Sodium 100 mg BID PRN PO; Start 01/28/25 at 00:00; Stop 02/27/25 at 00:00 Temazepam 15 mg HS PRN PO; Start 01/28/25 at 00:00; Stop 02/27/25 at 00:00 Ondansetron HCl 4 mg Q6H PRN IVP; Start 01/28/25 at 00:00; Stop 02/27/25 at 00:00 Hydralazine HCl 10 mg Q6H PRN IV; Start 01/28/25 at 00:00; Stop 02/27/25 at 00:00 Insulin Human Regular INSULIN SLIDING SCAL... ACHS SQ; Start 01/28/25 at 07:30; Stop 02/27/25 at 07:29 Potassium Chloride 100 ml @ 100 mls/hr AD PRN IV Last administered on 01/28/25at 03:25; Start 01/28/25 at 03:00; Stop 02/27/25 at 02:59 Potassium Chloride 20 meq AD PRN PO Last administered on 01/30/25at 14:53; Start 01/28/25 at 03:00; Stop 02/27/25 at 02:59 Potassium Chloride 20 meq AD PRN PO Last administered on 01/28/25at 18:39; Start 01/28/25 at 03:00; Stop 02/27/25 at 02:59 Magnesium Sulfate 50 ml @ 0 mls/hr PROTOCOL PRN IV Last administered on 01/28/25at 03:25; Start 01/28/25 at 03:00; Stop 02/27/25 at 02:59 Sodium Chloride 1,000 mg ONCE ONCE PO Last administered on 01/28/25at 10:31; Start 01/28/25 at 07:30; Stop 01/28/25 at 13:14; Status DC Metoprolol Succinate 50 mg DAILY PO Last administered on 01/28/25at 10:31; Start 01/28/25 at 09:00; Stop 01/29/25 at 08:28; Status DC Atorvastatin Calcium 40 mg HS PO Last administered on 01/29/25at 21:04; Start 01/28/25 at 21:00; Stop 02/27/25 at 20:59 Clopidogrel Bisulfate 75 mg DAILY PO Last administered on 01/30/25at 09:31; Start 01/28/25 at 09:00; Stop 02/27/25 at 08:59 Sucralfate 1 gm QID PO Last administered on 01/30/25at 09:31; Start 01/28/25 at 13:00; Stop 01/30/25 at 13:22; Status DC Lisinopril 40 mg DAILY PO Last administered on 01/30/25at 09:31; Start 01/29/25 at 09:00; Stop 02/28/25 at 08:59 Magnesium Oxide 400 mg BID PO Last administered on 01/30/25at 09:31; Start 01/28/25 at 21:00; Stop 02/27/25 at 20:59 Iron Sucrose 300 mg/Sodium Chloride 250 ml @ 83 mls/hr ONCE ONCE IV Last administered on 01/29/25at 21:03; Start 01/29/25 at 21:00; Stop 01/30/25 at 00:00; Status DC Amlodipine Besylate 5 mg DAILY PO Last administered on 01/30/25at 09:31; Start 01/30/25 at 09:00; Stop 03/01/25 at 08:59 Iron Sucrose 300 mg/Sodium Chloride 250 ml @ 83 mls/hr ONCE ONCE IV; Start 01/30/25 at 21:00; Stop 01/31/25 at 00:00 ANGIE HUIZAR MD Jan 30, 2025 17:08
--- NOTE | 2025-01-30 17:51 | NUR ---
DCP Spoke to pt and spouse regarding discharge plan, pt refused skilled facility for physical therapy due to frequent falls at home, pt verbalized wanting to go home. Referred pt to [facility] with [facility] for possible provider assistance. Pt to follow up with PCP Dr. Chan for home health for PT.
[2025-01-30] MEDS: IRON sUCROse COMPLEX 300 MG in 0.9% NACL 250ML 250 ML IV ONE (20:36)
[2025-01-31] VITALS (8 sets, daily range): BP systolic 132–152; BP diastolic 53–93; PULSE 56–86; RESP 20; TEMP 97.9–98.5; O2SAT 97–100
--- NOTE | 2025-01-31 01:01 | NUR ---
CALL PLACED TO HOSPITALIST P[employer]LING [employer] OPERATOR, SPOKE TO RAEGAN HEAD ATHLETIC TRAINER/STRENGTH COACH AND MADE AWARE PT AGITATED, RESTLESS, AND UNCOOPERATIVE. ORDERS RECEIVED FOR HALDOL 2.5MG IM X 1
[2025-01-31] MEDS: HALOPERIDOL INJ 5 MG/ML VIAL IM ONE (02:06)
[2025-01-31 05:31] LABS: ALBUMIN 3.1 g/dL (3.5-5.0); BILIRUBIN,TOTAL 0.5 mg/dL (0.2-1.0); CREATININE 0.7 mg/dL (0.5-1.3); POTASSIUM 4.6 mmol/L (3.5-5.1); TOTAL PROTEIN, SERUM 6.7 g/dL (6.0-8.3)
--- NOTE | 2025-01-31 07:45 | PN ---
Today the patient is lethargic. Through the night he was restless and received 2.5 mg Haldol with very little effect. This morning he is lethargic and I am unable to obtain history from him. There are a few right basilar rales. Rhythm is regular and S1 and S2 are preserved. Right lower extremity amputation is again noted and there is no change in ischemic left lower extremity. Sodium is 126 and the patient is not on diuretic but has a BNP over 500. Impression and recommendation: Extremely poor overall prognosis, hyponatremia and pulmonary congestion best treated by fluid restriction. Consider palliative care. Vitals/Labs Vital Signs Date Time Temp Pulse Resp B/P (MAP) Pulse Ox O2 Delivery O2 Flow Rate FiO2 01/31/25 03:38 98.4 86 20 137/56 100 Room Air 01/30/25 20:00 0 21 Laboratory Tests 01/30/25 10:33 01/31/25 04:21 Medications Current Medications Sodium Chloride 1,000 ml @ 100 mls/hr Q10H IV Last administered on 01/27/25at 22:23; Start 01/27/25 at 22:00; Stop 01/28/25 at 11:43; Status DC Famotidine 20 mg BID PO Last administered on 01/30/25at 20:36; Start 01/28/25 at 09:00; Stop 02/27/25 at 08:59 Acetaminophen 650 mg Q6H PRN PO Last administered on 01/28/25at 15:54; Start 01/28/25 at 00:00; Stop 02/27/25 at 00:00 Acetaminophen 650 mg Q6H PRN RC; Start 01/28/25 at 00:00; Stop 02/27/25 at 00:00 Lactulose 20 gm Q6H PRN PO; Start 01/28/25 at 00:00; Stop 02/27/25 at 00:00 Docusate Sodium 100 mg BID PRN PO; Start 01/28/25 at 00:00; Stop 02/27/25 at 00:00 Temazepam 15 mg HS PRN PO; Start 01/28/25 at 00:00; Stop 02/27/25 at 00:00 Ondansetron HCl 4 mg Q6H PRN IVP; Start 01/28/25 at 00:00; Stop 02/27/25 at 00:00 Hydralazine HCl 10 mg Q6H PRN IV; Start 01/28/25 at 00:00; Stop 02/27/25 at 00:00 Insulin Human Regular INSULIN SLIDING SCAL... ACHS SQ; Start 01/28/25 at 07:30; Stop 02/27/25 at 07:29 Potassium Chloride 100 ml @ 100 mls/hr AD PRN IV Last administered on 01/28/25at 03:25; Start 01/28/25 at 03:00; Stop 02/27/25 at 02:59 Potassium Chloride 20 meq AD PRN PO Last administered on 01/30/25at 18:17; Start 01/28/25 at 03:00; Stop 02/27/25 at 02:59 Potassium Chloride 20 meq AD PRN PO Last administered on 01/28/25at 18:39; Start 01/28/25 at 03:00; Stop 02/27/25 at 02:59 Magnesium Sulfate 50 ml @ 0 mls/hr PROTOCOL PRN IV Last administered on 01/28/25at 03:25; Start 01/28/25 at 03:00; Stop 02/27/25 at 02:59 Sodium Chloride 1,000 mg ONCE ONCE PO Last administered on 01/28/25at 10:31; Start 01/28/25 at 07:30; Stop 01/28/25 at 13:14; Status DC Metoprolol Succinate 50 mg DAILY PO Last administered on 01/28/25at 10:31; Start 01/28/25 at 09:00; Stop 01/29/25 at 08:28; Status DC Atorvastatin Calcium 40 mg HS PO Last administered on 01/30/25at 20:36; Start 01/28/25 at 21:00; Stop 02/27/25 at 20:59 Clopidogrel Bisulfate 75 mg DAILY PO Last administered on 01/30/25at 09:31; Start 01/28/25 at 09:00; Stop 02/27/25 at 08:59 Sucralfate 1 gm QID PO Last administered on 01/30/25at 09:31; Start 01/28/25 at 13:00; Stop 01/30/25 at 13:22; Status DC Lisinopril 40 mg DAILY PO Last administered on 01/30/25at 09:31; Start 01/29/25 at 09:00; Stop 02/28/25 at 08:59 Magnesium Oxide 400 mg BID PO Last administered on 01/30/25at 20:36; Start 01/28/25 at 21:00; Stop 02/27/25 at 20:59 Iron Sucrose 300 mg/Sodium Chloride 250 ml @ 83 mls/hr ONCE ONCE IV Last administered on 01/29/25at 21:03; Start 01/29/25 at 21:00; Stop 01/30/25 at 00:00; Status DC Amlodipine Besylate 5 mg DAILY PO Last administered on 01/30/25at 09:31; Start 01/30/25 at 09:00; Stop 03/01/25 at 08:59 Iron Sucrose 300 mg/Sodium Chloride 250 ml @ 83 mls/hr ONCE ONCE IV Last administered on 01/30/25at 20:36; Start 01/30/25 at 21:00; Stop 01/31/25 at 00:00; Status DC Haloperidol Lactate 2.5 mg ONCE ONCE IM Last administered on 01/31/25at 02:06; Start 01/31/25 at 01:00; Stop 01/31/25 at 01:02; Status DC ANGIE HUIZAR MD Jan 31, 2025 07:45
--- NOTE | 2025-01-31 10:04 | HMCIMG ---
Exam Type: CHEST 1VW Clinical Information: chf Comparison: None Findings: There is cardiomegaly and there is status post median sternotomy. The lungs are clear of infiltrates. Impression: Clear lungs.
--- NOTE | 2025-01-31 13:59 | PN ---
[facility] PROGRESS NOTE Date of Service: Jan 31, 2025 Time of Service: 13:55 SUBJECTIVE: 75-year-old male with a history of HTN, HDL, PVD, very hard of hearing, and right BKA who presented to [facility] [place] ED for wound evaluation. ED reported that the son noticed a skin tear to the left elbow that has not stop bleeding for the last two days. The son at bedside states he normally does not speak with his parents much so he was unsure what medications or what medical history the patient has. The patient has an obvious right BKA. ED provider request patient be admitted with the diagnosis of dehydration, hyponatremia, and chronic anemia. I went to assess the patient at bedside in room ED 3. The patient appeared comfortable, in no distress. Per chart review the patient has been intermittently hyponatremic sense 2018, and the patient is on Plavix. The patient was admitted on 08/17/2024 for the diagnosis of dehydration and hyponatremia. The patient was discharged on 08/24/2024. The patient is very hard of hearing, but is awake, alert, and oriented. I informed him of plan of care and he is in agreement with the plan. 01/28/2025. Patient was seen and examined no new complaints. Serum sodium 125. Awaiting urine electrolytes urine osmolality and serum osmolality results. ] 01/29/2025. Patient was seen and examined no new complaints. Serum [id number] urine sodium was 108, may have a component of SIADH, he has systolic heart failure which makes it very difficult to treat with salt tablets. Nephrology has seen the patient and cleared him for discharge they will follow the patient outpatient, patient had an episode of bradycardia metoprolol was held pending cardiology evaluation. 01/30/2025-patient was seen at that is bedside no new complaints noted. Serum sodium 126, potassium 3.3 on protocol. Nephrology advised fluid restriction and added amlodipine for hypertension and IV iron for iron-deficiency anemia. Cardiology advised no evaluation or treatment for arrhythmia which was noted for Mobitz type 1 av block And advised follow up at [facility] for further management and follow up on echo. Advised to hold on metoprolol 01/31/2025-patient was seen at the bedside, he is very difficult to talk since he has hearing difficulty. Last night he was agitated and night nurse has given him haloperidol, which calm him down. Cardiology advice: Extremely poor overall prognosis, hyponatremia and pulmonary congestion best treated by fluid restriction. Consider palliative care. Started on salt tablets 1 g OD daily, after discussing with attending. We will monitor in the a.m. REVIEW OF SYSTEMS Unable to obtain ROS from patient due to patient is very hard of hearing. PHYSICAL EXAM GENERAL APPEARANCE: The patient is awake, alert, and oriented, in no acute cardiopulmonary distress. NEUROLOGICAL: Cranial nerves II-XII grossly intact. Motor is 5/5 in bilateral upper and lower extremities proximal to distal. No sensory deficits. HEENT: Face is symmetric. Pupils are equal and reactive. Extraocular movements are intact. NECK: Supple. No JVD. No thyromegaly. No submental, submandibular, pre- /postauricular, occipital or supraclavicular lymphadenopathy. CHEST: Normal chest expansion. No Telemetry. LUNGS: Absence of any rales, rhonchi or any wheezing. CARDIOVASCULAR: Regular. S1 and S2 normal. No appreciable rubs, murmurs or gallops. ABDOMEN: Soft, nontender, and nondistended. There is no rebound, voluntary guarding, or rigidity. : Deferred. No Mckeon. EXTREMITIES: Right BKA. Multiple skin tears to bilateral upper extremities with controlled bleeding. Non-edematous and not cyanotic. No clubbing. Good capillary refill. SKIN: No skin breakdown. Vital Signs (last 8hr) Date Time Temp Pulse Resp B/P (MAP) Pulse Ox O2 Delivery O2 Flow Rate FiO2 01/31/25 12:00 97.9 56 20 140/64 99 Room Air 01/31/25 10:30 97 Room Air* 0 21 01/31/25 08:00 98.1 84 20 152/86 97 Room Air LABS: Laboratory: Test 01/31/25 11:30 01/31/25 04:21 Range/Units Whole Blood Glucose 94 70-110 MG/DL Sodium Level 126 L 136-145 mmol/L Potassium Level 4.6 3.5-5.1 mmol/L Chloride Level 95 L 101-111 mmol/L Carbon Dioxide Level 24 21-32 mmol/L Blood Urea Nitrogen 13 7-18 mg/dL Creatinine 0.7 0.5-1.3 mg/dL Glomerular Filtration Rate Calc 95 >90 mL/min Random Glucose 100 70-105 mg/dL Total Calcium 8.6 8.5-10.1 mg/dL Magnesium Level 1.80 1.80-2.40 mg/dL Total Bilirubin 0.5 0.2-1.0 mg/dL Aspartate Amino Transf (AST/SGOT) 29 10-37 U/L Alanine Aminotransferase (ALT/SGPT) 14 12-78 U/L Alkaline Phosphatase 132 50-136 U/L B-Type Natriuretic Peptide 532 H 0-100 pg/mL Total Protein 6.7 6.0-8.3 g/dL Albumin 3.1 L 3.5-5.0 g/dL Current Medications Medications (Trade) Dose Ordered Sig/Elliott Route PRN Reason Start Time Stop Time Status Last Admin Dose Admin Acetaminophen (TYLenol 325MG TAB) 650 mg Q6H PRN PO FEVER/MILD PAIN LEVEL 1-3 01/28/25 00:00 02/27/25 00:00 01/28/25 15:54 650 MG Acetaminophen (TYLenol 650MG SUPPOSITORY) 650 mg Q6H PRN RC FEVER / MILD PAIN 1-3 IF NPO 01/28/25 00:00 02/27/25 00:00 Amlodipine Besylate (NorvASC 5MG TAB) 5 mg DAILY PO 01/30/25 09:00 03/01/25 08:59 01/31/25 10:39 5 MG Atorvastatin Calcium (LIPItor 40MG) 40 mg HS PO 01/28/25 21:00 02/27/25 20:59 01/30/25 20:36 40 MG Clopidogrel Bisulfate (plaVIX 75MG) 75 mg DAILY PO 01/28/25 09:00 02/27/25 08:59 01/31/25 10:39 75 MG Docusate Sodium (COLace 100MG CAP) 100 mg BID PRN PO c 01/28/25 00:00 02/27/25 00:00 Famotidine (Pepcid 20mg Tab) 20 mg BID PO 01/28/25 09:00 02/27/25 08:59 01/31/25 10:39 20 MG Hydralazine HCl (APRESOLine 20MG INJ) 10 mg Q6H PRN IV SBP GREATER THAN 180 01/28/25 00:00 02/27/25 00:00 Insulin Human Regular (humuLIN R 100 UNIT/ML 3ML) INSULIN SLIDING SCAL... ACHS SQ 01/28/25 07:30 02/27/25 07:29 Lactulose (Constulose 20gm/ 30ml Udcup) 20 gm Q6H PRN PO CONSTIPATION 01/28/25 00:00 02/27/25 00:00 Lisinopril (Prinivil 40mg) 40 mg DAILY PO 01/29/25 09:00 02/28/25 08:59 01/31/25 10:39 40 MG Magnesium Oxide (Mag-Ox) 400 mg BID PO 01/28/25 21:00 02/27/25 20:59 01/31/25 10:38 400 MG Magnesium Sulfate 50 ml @ 0 mls/hr PROTOCOL PRN IV MAGNESIUM PROTOCOL 01/28/25 03:00 02/27/25 02:59 01/28/25 03:25 25 MLS/HR Metoprolol Succinate (TopROL XL) 50 mg DAILY PO 01/28/25 09:00 01/29/25 08:28 DC 01/28/25 10:31 50 MG Ondansetron HCl (zoFRAN 4MG INJ) 4 mg Q6H PRN IVP NAUSEA/VOMITING 01/28/25 00:00 02/27/25 00:00 Potassium Chloride 100 ml @ 100 mls/hr AD PRN IV POTASSIUM PROTOCOL 01/28/25 03:00 02/27/25 02:59 01/28/25 03:25 100 MLS/HR Potassium Chloride (K-Dur/Klor-Con 20meq) 20 meq AD PRN PO POTASSIUM PROTOCOL 01/28/25 03:00 02/27/25 02:59 01/28/25 18:39 20 MEQ Potassium Chloride (KCl 10% Elixir 20meq/15ml) 20 meq AD PRN PO POTASSIUM PROTOCOL 01/28/25 03:00 02/27/25 02:59 01/30/25 18:17 20 MEQ Sodium Chloride 1,000 ml @ 100 mls/hr Q10H IV 01/27/25 22:00 01/28/25 11:43 DC 01/27/25 22:23 100 MLS/HR Sucralfate (Carafate) 1 gm QID PO 01/28/25 13:00 01/30/25 13:22 DC 01/30/25 09:31 1 GM Temazepam (restORIL 15 MG CAP) 15 mg HS PRN PO INSOMNIA/SLEEP 01/28/25 00:00 02/27/25 00:00 DIAGNOSTICS / RADIOLOGY: [ ] ASSESSMENT: Acute on chronic hyponatremia, POA in heart failure Electrolyte derangement (hyponatremia, hypochloremia, hypokalemia, hypomagnesemia) Multiple bleeding skin tears to bilateral upper extremities, POA, on Plavix Elevated BNP chronic Congestive heart failure, LVEF 35-40% per echo on 08/18/2024 Iron deficiency anemia/acute on chronic anemia Uncontrolled hypertension Cachexia Chronic problem list: HTN, HDL, PVD, very hard of hearing, and right BKA, chronic constipation PVD with history of Abdominal aortogram with peripheral runoff of the left lower extremity, directional arthrectomy and drug coated angioplasty of the left dis cl L SFA artery and L TP artery and covered stent placement in the left peritoneal artery in 11/23/[address] Roney Acuña. On Plavix Alcohol and tobacco abuse COPD, on Breyna 80/4.5 Right foot gangrene/osteomyelitis s/p right BKA done on 11/28/[address] Dominguez History of Protein calorie malnutrition PLAN: Serum [id number] today. Patient had episode of bradycardia, advised to hold on metoprolol recommended per Cardiology. Iron-deficiency anemia on IV Venofer Start home medications from external med rec: Metoprolol succinate(was held), atorvastatin, Plavix, Breyna. Keep Upper extremity skin tears clean and dry, wound care by nursing. Follow iron studies if found to have iron-deficiency anemia we will replace with IV iron. GI DVT prophylaxis per protocol ATTESTATION BY PHYSICIAN I have seen and examined the patient. I reviewed the documentation, medical decision making, and treatment plan as noted by the mid-level provider above. I agree with the findings and plan of care. Ricardo Presley MD, AISHWARYA MD Jan 31, 2025 13:59
[2025-01-31] MEDS: SODIUM CHLORIDE 1,000 MG TAB PO SCH (14:46)
--- NOTE | 2025-01-31 16:34 | NUR ---
PT held. Pt sedated due to agitation. PT to follow
[2025-02-01] VITALS (8 sets, daily range): BP systolic 122–150; BP diastolic 56–69; PULSE 62–80; RESP 16–22; TEMP 98–98.4; O2SAT 97–100
[2025-02-01 03:44] LABS: BASOPHILS # (AUTO) 0.04 K/uL (0.00-0.20); BASOPHILS % (AUTO) 0.7 % (0.0-5.0); EOSINOPHILS # (AUTO) 0.07 K/uL (0.00-0.70); EOSINOPHILS % (AUTO) 1.2 % (0.0-8.0); HEMATOCRIT 23.7 % (42-54); IMMATURE GRANULOCYTE ABSOLUTE 0.03 K/uL (0-1); LYMPHOCYTES % (AUTO) 16.6 % (21.0-51.0); MEAN CORPUSCULAR HEMOGLOBIN 29.9 pg (27.0-33.0); MEAN CORPUSCULAR HGB CONC 33.8 g/dL (32.0-36.0); MEAN CORPUSCULAR VOLUME 88.4 fL (79-99); MONOCYTES # (AUTO) 0.9 K/uL (0.1-1.0); MONOCYTES % (AUTO) 14.6 % (3.0-13.0); NEUTROPHILS % (AUTO) 66.4 % (40.0-77.0); PLATELET COUNT (AUTO) 240 K/uL (130-400); RED BLOOD CELL COUNT(AUTO) 2.68 MIL/uL (4.50-6.20); RED CELL DISTRIBUTION WIDTH 14.3 % (11.0-15.5)
[2025-02-01 03:59] LABS: ALBUMIN 3.1 g/dL (3.5-5.0); BILIRUBIN,TOTAL 0.6 mg/dL (0.2-1.0); CREATININE 0.6 mg/dL (0.5-1.3); POTASSIUM 4.1 mmol/L (3.5-5.1); TOTAL PROTEIN, SERUM 6.7 g/dL (6.0-8.3)
--- NOTE | 2025-02-01 07:02 | PN ---
Acute on chronic hyponatremia, POA, suspect alcohol-induced hyponatremia Electrolyte derangement (hyponatremia, hypochloremia, hypokalemia, hypomagnesemia) Multiple bleeding skin tears to bilateral upper extremities, POA, on Plavix Elevated BNP Acute on chronic Congestive heart failure, LVEF 35-40% per echo on 08/18/2024 Iron deficiency anemia/acute on chronic anemia Uncontrolled hypertension Cachexia Chronic problem list: HTN, HDL, PVD, very hard of hearing, and right BKA, chronic constipation PVD with history of Abdominal aortogram with peripheral runoff of the left lower extremity, directional arthrectomy and drug coated angioplasty of the left distal L SFA artery and L TP artery and covered stent placement in the left peritoneal artery in 11/23/[address] Roney Acuña. On Plavix Alcohol and tobacco abuse COPD, on Breyna 80/4.5 Right foot gangrene/osteomyelitis s/p right BKA done on 11/28/[address] Dominguez History of Protein calorie malnutrition Due to deafness and mental status change, difficult to communicate; patient also lethargic No JVD, no rales, nonlabored respiration, preserved S1 and S2, status post BKA Hyponatremia has worsened from yesterday to today, currently 122. Highest sodium was 129. I do not think current downward trend is from previous alcohol; I think the patient requires fluid restriction and limitation of diuretic use at this point. Chest x-ray was improved yesterday and physical exam is clear today. I would reiterate the prognosis is extremely poor and palliative care should be considered Vitals/Labs Vital Signs Date Time Temp Pulse Resp B/P (MAP) Pulse Ox O2 Delivery O2 Flow Rate FiO2 02/01/25 03:42 98.1 62 22 150/67 100 Room Air 01/31/25 20:05 0 21 Laboratory Tests 02/01/25 03:25 Medications Current Medications Sodium Chloride 1,000 ml @ 100 mls/hr Q10H IV Last administered on 01/27/25at 22:23; Start 01/27/25 at 22:00; Stop 01/28/25 at 11:43; Status DC Famotidine 20 mg BID PO Last administered on 01/31/25at 20:37; Start 01/28/25 at 09:00; Stop 02/27/25 at 08:59 Acetaminophen 650 mg Q6H PRN PO Last administered on 02/01/25at 03:09; Start 01/28/25 at 00:00; Stop 02/27/25 at 00:00 Acetaminophen 650 mg Q6H PRN RC; Start 01/28/25 at 00:00; Stop 02/27/25 at 00:00 Lactulose 20 gm Q6H PRN PO; Start 01/28/25 at 00:00; Stop 02/27/25 at 00:00 Docusate Sodium 100 mg BID PRN PO; Start 01/28/25 at 00:00; Stop 02/27/25 at 00:00 Temazepam 15 mg HS PRN PO; Start 01/28/25 at 00:00; Stop 02/27/25 at 00:00 Ondansetron HCl 4 mg Q6H PRN IVP; Start 01/28/25 at 00:00; Stop 02/27/25 at 00:00 Hydralazine HCl 10 mg Q6H PRN IV; Start 01/28/25 at 00:00; Stop 02/27/25 at 00:00 Insulin Human Regular INSULIN SLIDING SCAL... ACHS SQ; Start 01/28/25 at 07:30; Stop 02/27/25 at 07:29 Potassium Chloride 100 ml @ 100 mls/hr AD PRN IV Last administered on 01/28/25at 03:25; Start 01/28/25 at 03:00; Stop 02/27/25 at 02:59 Potassium Chloride 20 meq AD PRN PO Last administered on 01/30/25at 18:17; Start 01/28/25 at 03:00; Stop 02/27/25 at 02:59 Potassium Chloride 20 meq AD PRN PO Last administered on 01/28/25at 18:39; Start 01/28/25 at 03:00; Stop 02/27/25 at 02:59 Magnesium Sulfate 50 ml @ 0 mls/hr PROTOCOL PRN IV Last administered on 01/28/25at 03:25; Start 01/28/25 at 03:00; Stop 02/27/25 at 02:59 Sodium Chloride 1,000 mg ONCE ONCE PO Last administered on 01/28/25at 10:31; Start 01/28/25 at 07:30; Stop 01/28/25 at 13:14; Status DC Metoprolol Succinate 50 mg DAILY PO Last administered on 01/28/25at 10:31; Start 01/28/25 at 09:00; Stop 01/29/25 at 08:28; Status DC Atorvastatin Calcium 40 mg HS PO Last administered on 01/31/25at 20:37; Start 01/28/25 at 21:00; Stop 02/27/25 at 20:59 Clopidogrel Bisulfate 75 mg DAILY PO Last administered on 01/31/25at 10:39; Start 01/28/25 at 09:00; Stop 02/27/25 at 08:59 Sucralfate 1 gm QID PO Last administered on 01/30/25at 09:31; Start 01/28/25 at 13:00; Stop 01/30/25 at 13:22; Status DC Lisinopril 40 mg DAILY PO Last administered on 01/31/25at 10:39; Start 01/29/25 at 09:00; Stop 02/28/25 at 08:59 Magnesium Oxide 400 mg BID PO Last administered on 01/31/25at 20:37; Start 01/28/25 at 21:00; Stop 02/27/25 at 20:59 Iron Sucrose 300 mg/Sodium Chloride 250 ml @ 83 mls/hr ONCE ONCE IV Last administered on 01/29/25at 21:03; Start 01/29/25 at 21:00; Stop 01/30/25 at 00:00; Status DC Amlodipine Besylate 5 mg DAILY PO Last administered on 01/31/25at 10:39; Start 01/30/25 at 09:00; Stop 03/01/25 at 08:59 Iron Sucrose 300 mg/Sodium Chloride 250 ml @ 83 mls/hr ONCE ONCE IV Last administered on 01/30/25at 20:36; Start 01/30/25 at 21:00; Stop 01/31/25 at 00:00; Status DC Haloperidol Lactate 2.5 mg ONCE ONCE IM Last administered on 01/31/25at 02:06; Start 01/31/25 at 01:00; Stop 01/31/25 at 01:02; Status DC Sodium Chloride 1,000 mg DAILY PO Last administered on 01/31/25at 14:46; Start 01/31/25 at 14:00; Stop 03/02/25 at 13:59 ANGIE HUIZAR MD Feb 01, 2025 07:02
[2025-02-01] MEDS: EMPAGLIFLOZIN 10MG TABLET PO SCH (09:27)
[2025-02-01] MEDS: carVEDIlol 3.125 MG TABLET PO SCH (09:27)
--- NOTE | 2025-02-01 11:27 | PN ---
[facility] PROGRESS NOTE Date of Service: Feb 01, 2025 Time of Service: 11:23 SUBJECTIVE: 75-year-old male with a history of HTN, HDL, PVD, very hard of hearing, and right BKA who presented to [facility] ED for wound evaluation. ED reported that the son noticed a skin tear to the left elbow that has not stop bleeding for the last two days. The son at bedside states he normally does not speak with his parents much so he was unsure what medications or what medical history the patient has. The patient has an obvious right BKA. ED provider request patient be admitted with the diagnosis of dehydration, hyponatremia, and chronic anemia. I went to assess the patient at bedside in room ED 3. The patient appeared comfortable, in no distress. Per chart review the patient has been intermittently hyponatremic sense 2018, and the patient is on Plavix. The patient was admitted on 08/17/2024 for the diagnosis of dehydration and hyponatremia. The patient was discharged on 08/24/2024. The patient is very hard of hearing, but is awake, alert, and oriented. I informed him of plan of care and he is in agreement with the plan. 01/28/2025. Patient was seen and examined no new complaints. Serum sodium 125. Awaiting urine electrolytes urine osmolality and serum osmolality results. ] 01/29/2025. Patient was seen and examined no new complaints. Serum [id number] urine sodium was 108, may have a component of SIADH, he has systolic heart failure which makes it very difficult to treat with salt tablets. Nephrology has seen the patient and cleared him for discharge they will follow the patient outpatient, patient had an episode of bradycardia metoprolol was held pending cardiology evaluation. 01/30/2025-patient was seen at that is bedside no new complaints noted. Serum sodium 126, potassium 3.3 on protocol. Nephrology advised fluid restriction and added amlodipine for hypertension and IV iron for iron-deficiency anemia. Cardiology advised no evaluation or treatment for arrhythmia which was noted for Mobitz type 1 av block And advised follow up at [facility] [address] for further management and follow up on echo. Advised to hold on metoprolol 01/31/2025-patient was seen at the bedside, he is very difficult to talk since he has hearing difficulty. Last night he was agitated and night nurse has given him haloperidol, which calm him down. Cardiology advice: Extremely poor overall prognosis, hyponatremia and pulmonary congestion best treated by fluid restriction. Consider palliative care. Started on salt tablets 1 g OD daily, after discussing with attending. We will monitor in the a.m. 02/01/2025-patient was seen at the bedside, stable and doing well. His sodium has dropped from 126-122. We stopped on sodium tablets, as it could be possibly due to dilution. Cardiology on board-advised strict fluid restriction and limited diuretic use. He reiterate the prognosis is extremely poor and palliative care should be considered. REVIEW OF SYSTEMS Unable to obtain ROS from patient due to patient is very hard of hearing. PHYSICAL EXAM GENERAL APPEARANCE: The patient is awake, alert, and oriented, in no acute cardiopulmonary distress. NEUROLOGICAL: Cranial nerves II-XII grossly intact. Motor is 5/5 in bilateral upper and lower extremities proximal to distal. No sensory deficits. HEENT: Face is symmetric. Pupils are equal and reactive. Extraocular movements are intact. NECK: Supple. No JVD. No thyromegaly. No submental, submandibular, pre- /postauricular, occipital or supraclavicular lymphadenopathy. CHEST: Normal chest expansion. No Telemetry. LUNGS: Absence of any rales, rhonchi or any wheezing. CARDIOVASCULAR: Regular. S1 and S2 normal. No appreciable rubs, murmurs or gallops. ABDOMEN: Soft, nontender, and nondistended. There is no rebound, voluntary guarding, or rigidity. : Deferred. No Mckeon. EXTREMITIES: Right BKA. Multiple skin tears to bilateral upper extremities with controlled bleeding. Non-edematous and not cyanotic. No clubbing. Good capillary refill. SKIN: No skin breakdown. Vital Signs (last 8hr) Date Time Temp Pulse Resp B/P (MAP) Pulse Ox O2 Delivery O2 Flow Rate FiO2 02/01/25 09:27 149/59 02/01/25 07:55 98.1 69 16 149/59 100 Room Air 02/01/25 03:42 98.1 62 22 150/67 100 Room Air LABS: Laboratory: Test 02/01/25 05:24 02/01/25 03:25 01/31/25 04:21 Range/Units Whole Blood Glucose 91 70-110 MG/DL White Blood Count 6.0 4.8-10.8 K/uL Red Blood Count 2.68 L 4.50-6.20 MIL/uL Hemoglobin 8.0 L 14.0-18.0 g/dL Hematocrit 23.7 L 42-54 % Mean Corpuscular Volume 88.4 79-99 fL Mean Corpuscular Hemoglobin 29.9 27.0-33.0 pg Mean Corpuscular Hemoglobin Concent 33.8 32.0-36.0 g/dL Red Cell Distribution Width 14.3 11.0-15.5 % Platelet Count 240 130-400 K/uL Mean Platelet Volume 9.7 7.5-10.5 fL Immature Granulocyte % (Auto) 0.5 0-1 % Neutrophils (%) (Auto) 66.4 40.0-77.0 % Lymphocytes (%) (Auto) 16.6 L 21.0-51.0 % Monocytes (%) (Auto) 14.6 H 3.0-13.0 % Eosinophils (%) (Auto) 1.2 0.0-8.0 % Basophils (%) (Auto) 0.7 0.0-5.0 % Neutrophils # (Auto) 4.0 1.8-7.7 K/uL Lymphocytes # (Auto) 1.0 1.0-4.8 K/uL Monocytes # (Auto) 0.9 0.1-1.0 K/uL Eosinophils # (Auto) 0.07 0.00-0.70 K/uL Basophils # (Auto) 0.04 0.00-0.20 K/uL Absolute Immature Granulocyte (auto 0.03 0-1 K/uL Nucleated Red Blood Cells 0.0 0.0-0.19 % Sodium Level 122 L 136-145 mmol/L Potassium Level 4.1 3.5-5.1 mmol/L Chloride Level 92 L 101-111 mmol/L Carbon Dioxide Level 26 21-32 mmol/L Blood Urea Nitrogen 7 7-18 mg/dL Creatinine 0.6 0.5-1.3 mg/dL Glomerular Filtration Rate Calc 99 >90 mL/min Random Glucose 83 70-105 mg/dL Total Calcium 8.9 8.5-10.1 mg/dL Total Bilirubin 0.6 0.2-1.0 mg/dL Aspartate Amino Transf (AST/SGOT) 26 10-37 U/L Alanine Aminotransferase (ALT/SGPT) 12 12-78 U/L Alkaline Phosphatase 116 50-136 U/L Total Protein 6.7 6.0-8.3 g/dL Albumin 3.1 L 3.5-5.0 g/dL Magnesium Level 1.80 1.80-2.40 mg/dL B-Type Natriuretic Peptide 532 H 0-100 pg/mL Current Medications Medications (Trade) Dose Ordered Sig/Elliott Route PRN Reason Start Time Stop Time Status Last Admin Dose Admin Acetaminophen (TYLenol 325MG TAB) 650 mg Q6H PRN PO FEVER/MILD PAIN LEVEL 1-3 01/28/25 00:00 02/27/25 00:00 02/01/25 03:09 650 MG Acetaminophen (TYLenol 650MG SUPPOSITORY) 650 mg Q6H PRN RC FEVER / MILD PAIN 1-3 IF NPO 01/28/25 00:00 02/27/25 00:00 Amlodipine Besylate (NorvASC 5MG TAB) 5 mg DAILY PO 01/30/25 09:00 03/01/25 08:59 02/01/25 09:27 5 MG Atorvastatin Calcium (LIPItor 40MG) 40 mg HS PO 01/28/25 21:00 02/27/25 20:59 01/31/25 20:37 40 MG Carvedilol (Coreg 3.125MG) 3.125 mg BID PO 02/01/25 09:00 03/03/25 08:59 02/01/25 09:27 3.125 MG Clopidogrel Bisulfate (plaVIX 75MG) 75 mg DAILY PO 01/28/25 09:00 02/27/25 08:59 02/01/25 09:27 75 MG Docusate Sodium (COLace 100MG CAP) 100 mg BID PRN PO c 01/28/25 00:00 02/27/25 00:00 Empaglifozin (Jardiance 10mg) 10 mg DAILY PO 02/01/25 09:00 03/03/25 08:59 02/01/25 09:27 10 MG Famotidine (Pepcid 20mg Tab) 20 mg BID PO 01/28/25 09:00 02/27/25 08:59 02/01/25 09:27 20 MG Hydralazine HCl (APRESOLine 20MG INJ) 10 mg Q6H PRN IV SBP GREATER THAN 180 01/28/25 00:00 02/27/25 00:00 Insulin Human Regular (humuLIN R 100 UNIT/ML 3ML) INSULIN SLIDING SCAL... ACHS SQ 01/28/25 07:30 02/27/25 07:29 Lactulose (Constulose 20gm/ 30ml Udcup) 20 gm Q6H PRN PO CONSTIPATION 01/28/25 00:00 02/27/25 00:00 Lisinopril (Prinivil 40mg) 40 mg DAILY PO 01/29/25 09:00 02/28/25 08:59 02/01/25 09:27 40 MG Magnesium Oxide (Mag-Ox) 400 mg BID PO 01/28/25 21:00 02/27/25 20:59 02/01/25 09:27 400 MG Magnesium Sulfate 50 ml @ 0 mls/hr PROTOCOL PRN IV MAGNESIUM PROTOCOL 01/28/25 03:00 02/27/25 02:59 01/28/25 03:25 25 MLS/HR Metoprolol Succinate (TopROL XL) 50 mg DAILY PO 01/28/25 09:00 01/29/25 08:28 DC 01/28/25 10:31 50 MG Ondansetron HCl (zoFRAN 4MG INJ) 4 mg Q6H PRN IVP NAUSEA/VOMITING 01/28/25 00:00 02/27/25 00:00 Potassium Chloride 100 ml @ 100 mls/hr AD PRN IV POTASSIUM PROTOCOL 01/28/25 03:00 02/27/25 02:59 01/28/25 03:25 100 MLS/HR Potassium Chloride (K-Dur/Klor-Con 20meq) 20 meq AD PRN PO POTASSIUM PROTOCOL 01/28/25 03:00 02/27/25 02:59 01/28/25 18:39 20 MEQ Potassium Chloride (KCl 10% Elixir 20meq/15ml) 20 meq AD PRN PO POTASSIUM PROTOCOL 01/28/25 03:00 02/27/25 02:59 01/30/25 18:17 20 MEQ Sodium Chloride 1,000 ml @ 100 mls/hr Q10H IV 01/27/25 22:00 01/28/25 11:43 DC 01/27/25 22:23 100 MLS/HR Sodium Chloride (Sodium Chloride) 1,000 mg DAILY PO 01/31/25 14:00 02/01/25 10:00 DC 02/01/25 09:27 1,000 MG Sucralfate (Carafate) 1 gm QID PO 01/28/25 13:00 01/30/25 13:22 DC 01/30/25 09:31 1 GM Temazepam (restORIL 15 MG CAP) 15 mg HS PRN PO INSOMNIA/SLEEP 01/28/25 00:00 02/01/25 07:06 DC DIAGNOSTICS / RADIOLOGY: [ ] ASSESSMENT: Acute on chronic hyponatremia, POA in heart failure Electrolyte derangement (hyponatremia, hypochloremia, hypokalemia, hypomagnesemia) Multiple bleeding skin tears to bilateral upper extremities, POA, on Plavix Elevated BNP chronic Congestive heart failure, LVEF 35-40% per echo on 08/18/2024 Iron deficiency anemia/acute on chronic anemia Uncontrolled hypertension Cachexia Chronic problem list: HTN, HDL, PVD, very hard of hearing, and right BKA, chronic constipation PVD with history of Abdominal aortogram with peripheral runoff of the left lower extremity, directional arthrectomy and drug coated angioplasty of the left distal L SFA artery and L TP artery and covered stent placement in the left peritoneal artery in 11/23/[address] Roney Acuña. On Plavix Alcohol and tobacco abuse COPD, on Breyna 80/4.5 Right foot gangrene/osteomyelitis s/p right BKA done on 11/28/[address] Dominguez History of Protein calorie malnutrition PLAN: Serum [id number] today. Patient had episode of bradycardia, advised to hold on metoprolol recommended per Cardiology. Iron-deficiency anemia on IV Venofer Start home medications from external med rec: Metoprolol succinate(was held), atorvastatin, Plavix, Breyna. Keep Upper extremity skin tears clean and dry, wound care by nursing. Follow iron studies if found to have iron-deficiency anemia we will replace with IV iron. GI DVT prophylaxis per protocol ATTESTATION BY PHYSICIAN I have seen and examined the patient. I reviewed the documentation, medical decision making, and treatment plan as noted by the mid-level provider above. I agree with the findings and plan of care. Ricardo Presley MD, AISHWARYA MD Feb 01, 2025 11:27
[2025-02-02] VITALS (8 sets, daily range): BP systolic 109–150; BP diastolic 44–66; PULSE 62–68; RESP 15–18; TEMP 97.6–98.4; O2SAT 97–100
[2025-02-02 03:46] LABS: BASOPHILS # (AUTO) 0.05 K/uL (0.00-0.20); BASOPHILS % (AUTO) 0.8 % (0.0-5.0); EOSINOPHILS # (AUTO) 0.09 K/uL (0.00-0.70); EOSINOPHILS % (AUTO) 1.5 % (0.0-8.0); HEMATOCRIT 24.2 % (42-54); IMMATURE GRANULOCYTE ABSOLUTE 0.02 K/uL (0-1); LYMPHOCYTES # (AUTO) 1.3 K/uL (1.0-4.8); MEAN CORPUSCULAR HEMOGLOBIN 30.1 pg (27.0-33.0); MEAN CORPUSCULAR HGB CONC 34.3 g/dL (32.0-36.0); MEAN CORPUSCULAR VOLUME 87.7 fL (79-99); MONOCYTES # (AUTO) 0.8 K/uL (0.1-1.0); MONOCYTES % (AUTO) 13.6 % (3.0-13.0); NEUTROPHILS # (AUTO) 3.8 K/uL (1.8-7.7); NEUTROPHILS % (AUTO) 61.8 % (40.0-77.0); PLATELET COUNT (AUTO) 243 K/uL (130-400); RED BLOOD CELL COUNT(AUTO) 2.76 MIL/uL (4.50-6.20); WHITE BLOOD COUNT (AUTO) 6.1 K/uL (4.8-10.8)
[2025-02-02 03:58] LABS: ALBUMIN 3.2 g/dL (3.5-5.0); BILIRUBIN,TOTAL 0.6 mg/dL (0.2-1.0); CREATININE 0.8 mg/dL (0.5-1.3)
[2025-02-02 04:26] LABS: B-TYPE NATRIURETIC PEPTIDE 203 pg/mL (0-100)
[2025-02-02 05:04] LABS: CHLORIDE,URINE RANDOM 92 mmol/L (110-250); POTASSIUM,URINE RANDOM 25 mmol/L (25-125); SODIUM,URINE RANDOM 97 mmol/l (40-220)
--- NOTE | 2025-02-02 09:18 | PN ---
FOLLOWUP PROGRESS NOTE SUBJECTIVE: A 75-year-old male who has had a prolonged hospital course. He has a history of hypertension, as well as vascular disease. He has a history of chronic hyponatremia. 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 The patient has been noncompliant with his fluid restriction and the patient is being seen as a followup visit for all of the above. REVIEW OF SYSTEMS: GENERAL: He is feeling weak and tired. HEENT: No change in vision. No change in hearing. CARDIOVASCULAR: There is no current chest pains or palpitation. PULMONARY: He has chronic shortness of breath. GASTROINTESTINAL: The patient is tolerating diet. MUSCULOSKELETAL: Complains of weakness. PHYSICAL EXAMINATION: VITAL SIGNS: Blood pressure 150/63, pulse 60s. He is afebrile. GENERAL: Chronically ill male, elderly, lying in bed on the medical floor. HEENT: Head is atraumatic. Pupils equal, roving to light. Oropharynx is without exudate. Nares clear. NECK: There is no JVP. There is no thyromegaly, no mass. CARDIOVASCULAR: Regular. There is no S3 or S4 gallop. LUNGS: Coarse with equal thoracic movement. ABDOMEN: Soft, nondistended, and nontender. EXTREMITIES: Reveal no clubbing or cyanosis. LABORATORY DATA: Hemoglobin 8.3, hematocrit 24. Sodium is 120, potassium is 4, BUN 12, creatinine 0.8. IMPRESSION: * Hyponatremia secondary to SIADH. * Diabetes mellitus. * Hypertension. * Vascular disease. PLAN: The patient with persistent hyponatremia. I have discussed with the patient yet again in regards to the need for fluid restriction. The patient has a history of chronic hyponatremia. The patient is asymptomatic from a serum sodium standpoint. Once the patient is discharged, the patient can follow up in the [facility]. TID: [id number] RECEIPT: [id number]
--- NOTE | 2025-02-02 11:35 | NUR ---
pt report given to Stefanie and pt will be taken up to room 316 via bed.
--- NOTE | 2025-02-02 11:42 | NUR ---
pt being taken to room 316 in no apparent distress and with tele in place.
--- NOTE | 2025-02-02 12:01 | PN ---
[facility] CARDIOLOGY PROGRESS NOTE Cardiology progress note dictated for Angie Huizar MD Date Patient Seen: Feb 02, 2025 Interval History: The patient is up to chair, in no acute distress. He did not speak but nodded his head no when asked if he had chest pain, chest pressure, palpitations, dizziness or shortness of breath. Na+ 120 and CL 89. Hgb 8.3 Hct 24.2. BNP 619 on admission decreased to 203. He continues with episodes of 2:1 AVB. Lowest documented hr of 32bpm on 02/02/2025 at 0452. Physical Examination: GENERAL: No acute distress. Frail-appearing and cachectic. HEAD: Normal with no signs of head trauma. EYES: PERRLA, EOMI, conjunctiva and sclera normal. NECK: Supple without JVD. There is no tenderness, lymphadenopathy, or masses. No thyromegaly. Normal carotid upstrokes without bruits. LUNGS: Clear breath sounds bilaterally. No wheezes, or rhonchi. HEART: Normal rate and rhythm. Normal S1 and S2 without murmurs, gallop or rub. VASC: Unable to palpate left DP pulse. EXT: No clubbing, cyanosis or edema. Right BKA NEURO: Awake, alert, and oriented x3. No focal neurological deficits noted. Laboratory: Hematology Labs: Test 02/02/25 03:36 Range/Units White Blood Count 6.1 4.8-10.8 K/uL Red Blood Count 2.76 L 4.50-6.20 MIL/uL Hemoglobin 8.3 L 14.0-18.0 g/dL Hematocrit 24.2 L 42-54 % Mean Corpuscular Volume 87.7 79-99 fL Mean Corpuscular Hemoglobin 30.1 27.0-33.0 pg Mean Corpuscular Hemoglobin Concent 34.3 32.0-36.0 g/dL Red Cell Distribution Width 14.0 11.0-15.5 % Platelet Count 243 130-400 K/uL Mean Platelet Volume 9.2 7.5-10.5 fL Immature Granulocyte % (Auto) 0.3 0-1 % Neutrophils (%) (Auto) 61.8 40.0-77.0 % Lymphocytes (%) (Auto) 22.0 21.0-51.0 % Monocytes (%) (Auto) 13.6 H 3.0-13.0 % Eosinophils (%) (Auto) 1.5 0.0-8.0 % Basophils (%) (Auto) 0.8 0.0-5.0 % Neutrophils # (Auto) 3.8 1.8-7.7 K/uL Lymphocytes # (Auto) 1.3 1.0-4.8 K/uL Monocytes # (Auto) 0.8 0.1-1.0 K/uL Eosinophils # (Auto) 0.09 0.00-0.70 K/uL Basophils # (Auto) 0.05 0.00-0.20 K/uL Absolute Immature Granulocyte (auto 0.02 0-1 K/uL Nucleated Red Blood Cells 0.0 0.0-0.19 % Chemistry Labs: Test 02/02/25 05:42 02/02/25 03:36 Range/Units Whole Blood Glucose 84 70-110 MG/DL Sodium Level 120 L 136-145 mmol/L Potassium Level 4.0 3.5-5.1 mmol/L Chloride Level 89 *L 101-111 mmol/L Carbon Dioxide Level 25 21-32 mmol/L Blood Urea Nitrogen 12 7-18 mg/dL Creatinine 0.8 0.5-1.3 mg/dL Glomerular Filtration Rate Calc 91 >90 mL/min Random Glucose 84 70-105 mg/dL Total Calcium 9.0 8.5-10.1 mg/dL Total Bilirubin 0.6 0.2-1.0 mg/dL Aspartate Amino Transf (AST/SGOT) 23 10-37 U/L Alanine Aminotransferase (ALT/SGPT) 11 L 12-78 U/L Alkaline Phosphatase 133 50-136 U/L B-Type Natriuretic Peptide 203 H 0-100 pg/mL Total Protein 7.0 6.0-8.3 g/dL Albumin 3.2 L 3.5-5.0 g/dL Diagnostics / Radiology: Impression and Plan: 2:1 AVB Acute on chronic systolic congestive heart failure Acute on chronic hyponatremia Electrolyte derangement Iron deficiency anemia BUE with multiple skin tears 2D Echo on 08/18/2024 with an EF of 35-40% with distal anterior and apical hypokinesis HTN HLD CAD s/p CABG x3 in 07/2013 COPD CHILKOOT Cachexia Alcohol and tobacco abuse PAD s/p Right BKA on 11/28/2023 Abdominal aortogram with peripheral runoff of the left lower extremity, directional arthrectomy and drug coated angioplasty of the left distal L SFA artery and L TP artery and covered stent placement in the left peritoneal artery in 11/23/[address] Roney Acuña. 2:1 AVB Lowest documented hr of 32bpm on 02/02/2025 at 0452 -Hold AV jhoan blocking agents -The patient's prognosis is extremely poor and palliative care should be considered Acute on chronic systolic congestive heart failure BNP 619 on admission decreased to 203 -Continue GDMT: Jardiance 10mg daily and Lisinopril 40mg daily. -Not a candidate for beta-zurdo therapy due to 2:1 AVB, last dose of Coreg 3.125mg bid on 02/02 at 0954 -Continue fluid restriction and limitation of diuretic use -Obtain 2D Echocardiogram to assess LV function and valvular pathology Hyponatremia Highest Na+ level of 129mmol/L Today, 02/02: Na+ 120 and CL 89 -Continue fluid restriction and limitation of diuretic use SUSANNE MCDANIEL Feb 02, 2025 12:01 ANGIE HUIZAR MD Feb 02, 2025 18:50
[2025-02-02] MEDS: SODIUM CHLORIDE 1,000 MG TAB PO SCH (14:06)
--- NOTE | 2025-02-02 15:22 | PN ---
[facility] PROGRESS NOTE Date of Service: Feb 02, 2025 Time of Service: 15:16 SUBJECTIVE: 75-year-old male with a history of HTN, HDL, PVD, very hard of hearing, and right BKA who presented [place] [facility] [place]. ED reported that the son noticed a skin tear to the left elbow that has not stop bleeding for the last two days. The son at bedside states he normally does not speak with his parents much so he was unsure what medications or what medical history the patient has. The patient has an obvious right BKA. ED provider request patient be admitted with the diagnosis of dehydration, hyponatremia, and chronic anemia. I went to assess the patient at bedside in room ED 3. The patient appeared comfortable, in no distress. Per chart review the patient has been intermittently hyponatremic sense 2018, and the patient is on Plavix. The patient was admitted on 08/17/2024 for the diagnosis of dehydration and hyponatremia. The patient was discharged on 08/24/2024. The patient is very hard of hearing, but is awake, alert, and oriented. I informed him of plan of care and he is in agreement with the plan. 01/28/2025. Patient was seen and examined no new complaints. Serum sodium 125. Awaiting urine electrolytes urine osmolality and serum osmolality results. ] 01/29/2025. Patient was seen and examined no new complaints. Serum [id number] urine sodium was 108, may have a component of SIADH, he has systolic heart failure which makes it very difficult to treat with salt tablets. Nephrology has seen the patient and cleared him for discharge they will follow the patient outpatient, patient had an episode of bradycardia metoprolol was held pending cardiology evaluation. 01/30/2025-patient was seen at that is bedside no new complaints noted. Serum sodium 126, potassium 3.3 on protocol. Nephrology advised fluid restriction and added amlodipine for hypertension and IV iron for iron-deficiency anemia. Cardiology advised no evaluation or treatment for arrhythmia which was noted for Mobitz type 1 av block And advised follow up at [facility] for further management and follow up on echo. Advised to hold on metoprolol 01/31/2025-patient was seen at the bedside, he is very difficult to talk since he has hearing difficulty. Last night he was agitated and night nurse has given him haloperidol, which calm him down. Cardiology advice: Extremely poor overall prognosis, hyponatremia and pulmonary congestion best treated by fluid restriction. Consider palliative care. Started on salt tablets 1 g OD daily, after discussing with attending. We will monitor in the a.m. 02/01/2025-patient was seen at the bedside, stable and doing well. His sodium has dropped from 126-122. We stopped on sodium tablets, as it could be possibly due to dilution. Cardiology on board-advised strict fluid restriction and limited diuretic use. He reiterate the prognosis is extremely poor and palliative care should be considered. 02/02/2025-patient was seen at the bedside, stable and oriented. Sodium dropped from 122-120. Patient is started on 1 g sodium t.i.d., and Bumex1 mg oral. Discussed with Nephrology regarding ure-na, spoke with the pharmacy about it does not have 1 at the moment but they said they will order and let us know. Ordered CT chest without contrast, suspected mass causing hyponatremia. REVIEW OF SYSTEMS Unable to obtain ROS from patient due to patient is very hard of hearing. PHYSICAL EXAM GENERAL APPEARANCE: The patient is awake, alert, and oriented, in no acute cardiopulmonary distress. NEUROLOGICAL: Cranial nerves II-XII grossly intact. Motor is 5/5 in bilateral upper and lower extremities proximal to distal. No sensory deficits. HEENT: Face is symmetric. Pupils are equal and reactive. Extraocular movements are intact. NECK: Supple. No JVD. No thyromegaly. No submental, submandibular, pre- /postauricular, occipital or supraclavicular lymphadenopathy. CHEST: Normal chest expansion. No Telemetry. LUNGS: Absence of any rales, rhonchi or any wheezing. CARDIOVASCULAR: Regular. S1 and S2 normal. No appreciable rubs, murmurs or gallops. ABDOMEN: Soft, nontender, and nondistended. There is no rebound, voluntary guarding, or rigidity. : Deferred. No Mckeon. EXTREMITIES: Right BKA. Multiple skin tears to bilateral upper extremities with controlled bleeding. Non-edematous and not cyanotic. No clubbing. Good capillary refill. SKIN: No skin breakdown. Vital Signs (last 8hr) Date Time Temp Pulse Resp B/P (MAP) Pulse Ox O2 Delivery O2 Flow Rate FiO2 02/02/25 11:50 100 Room Air* 0 21 02/02/25 11:42 98.2 65 16 109/56 100 Room Air 02/02/25 09:54 150/66 02/02/25 08:00 97.5 67 16 133/66 100 Room Air LABS: Laboratory: Test 02/02/25 11:17 02/02/25 04:57 02/02/25 03:36 Range/Units Whole Blood Glucose 123 H 70-110 MG/DL Urine Random Sodium 97 40-220 mmol/l Urine Random Potassium 25 25-125 mmol/L Urine Random Chloride 92 L 110-250 mmol/L White Blood Count 6.1 4.8-10.8 K/uL Red Blood Count 2.76 L 4.50-6.20 MIL/uL Hemoglobin 8.3 L 14.0-18.0 g/dL Hematocrit 24.2 L 42-54 % Mean Corpuscular Volume 87.7 79-99 fL Mean Corpuscular Hemoglobin 30.1 27.0-33.0 pg Mean Corpuscular Hemoglobin Concent 34.3 32.0-36.0 g/dL Red Cell Distribution Width 14.0 11.0-15.5 % Platelet Count 243 130-400 K/uL Mean Platelet Volume 9.2 7.5-10.5 fL Immature Granulocyte % (Auto) 0.3 0-1 % Neutrophils (%) (Auto) 61.8 40.0-77.0 % Lymphocytes (%) (Auto) 22.0 21.0-51.0 % Monocytes (%) (Auto) 13.6 H 3.0-13.0 % Eosinophils (%) (Auto) 1.5 0.0-8.0 % Basophils (%) (Auto) 0.8 0.0-5.0 % Neutrophils # (Auto) 3.8 1.8-7.7 K/uL Lymphocytes # (Auto) 1.3 1.0-4.8 K/uL Monocytes # (Auto) 0.8 0.1-1.0 K/uL Eosinophils # (Auto) 0.09 0.00-0.70 K/uL Basophils # (Auto) 0.05 0.00-0.20 K/uL Absolute Immature Granulocyte (auto 0.02 0-1 K/uL Nucleated Red Blood Cells 0.0 0.0-0.19 % Sodium Level 120 L 136-145 mmol/L Potassium Level 4.0 3.5-5.1 mmol/L Chloride Level 89 *L 101-111 mmol/L Carbon Dioxide Level 25 21-32 mmol/L Blood Urea Nitrogen 12 7-18 mg/dL Creatinine 0.8 0.5-1.3 mg/dL Glomerular Filtration Rate Calc 91 >90 mL/min Random Glucose 84 70-105 mg/dL Total Calcium 9.0 8.5-10.1 mg/dL Total Bilirubin 0.6 0.2-1.0 mg/dL Aspartate Amino Transf (AST/SGOT) 23 10-37 U/L Alanine Aminotransferase (ALT/SGPT) 11 L 12-78 U/L Alkaline Phosphatase 133 50-136 U/L B-Type Natriuretic Peptide 203 H 0-100 pg/mL Total Protein 7.0 6.0-8.3 g/dL Albumin 3.2 L 3.5-5.0 g/dL Current Medications Medications (Trade) Dose Ordered Sig/Elliott Route PRN Reason Start Time Stop Time Status Last Admin Dose Admin Acetaminophen (TYLenol 325MG TAB) 650 mg Q6H PRN PO FEVER/MILD PAIN LEVEL 1-3 01/28/25 00:00 02/27/25 00:00 02/01/25 21:32 650 MG Acetaminophen (TYLenol 650MG SUPPOSITORY) 650 mg Q6H PRN RC FEVER / MILD PAIN 1-3 IF NPO 01/28/25 00:00 02/27/25 00:00 Amlodipine Besylate (NorvASC 5MG TAB) 5 mg DAILY PO 01/30/25 09:00 03/01/25 08:59 02/02/25 09:54 5 MG Atorvastatin Calcium (LIPItor 40MG) 40 mg HS PO 01/28/25 21:00 02/27/25 20:59 02/01/25 21:31 40 MG Bumetanide (Bumex 1mg Tab) 1 mg DAILY PO 02/03/25 09:00 03/05/25 08:59 Carvedilol (Coreg 3.125MG) 3.125 mg BID PO 02/01/25 09:00 02/02/25 11:43 DC 02/02/25 09:54 3.125 MG Clopidogrel Bisulfate (plaVIX 75MG) 75 mg DAILY PO 01/28/25 09:00 02/27/25 08:59 02/02/25 09:54 75 MG Docusate Sodium (COLace 100MG CAP) 100 mg BID PRN PO c 01/28/25 00:00 02/27/25 00:00 Empaglifozin (Jardiance 10mg) 10 mg DAILY PO 02/01/25 09:00 03/03/25 08:59 02/02/25 09:53 10 MG Famotidine (Pepcid 20mg Tab) 20 mg BID PO 01/28/25 09:00 02/27/25 08:59 02/02/25 09:54 20 MG Furosemide (LASix 40MG TAB) 40 mg DAILY PO 02/03/25 09:00 02/02/25 12:55 DC Hydralazine HCl (APRESOLine 20MG INJ) 10 mg Q6H PRN IV SBP GREATER THAN 180 01/28/25 00:00 02/27/25 00:00 Insulin Human Regular (humuLIN R 100 UNIT/ML 3ML) INSULIN SLIDING SCAL... ACHS SQ 01/28/25 07:30 02/27/25 07:29 Lactulose (Constulose 20gm/ 30ml Udcup) 20 gm Q6H PRN PO CONSTIPATION 01/28/25 00:00 02/27/25 00:00 Lisinopril (Prinivil 40mg) 40 mg DAILY PO 01/29/25 09:00 02/28/25 08:59 02/02/25 09:54 40 MG Magnesium Oxide (Mag-Ox) 400 mg BID PO 01/28/25 21:00 02/27/25 20:59 02/02/25 09:54 400 MG Magnesium Sulfate 50 ml @ 0 mls/hr PROTOCOL PRN IV MAGNESIUM PROTOCOL 01/28/25 03:00 02/27/25 02:59 01/28/25 03:25 25 MLS/HR Metoprolol Succinate (TopROL XL) 50 mg DAILY PO 01/28/25 09:00 01/29/25 08:28 DC 01/28/25 10:31 50 MG Ondansetron HCl (zoFRAN 4MG INJ) 4 mg Q6H PRN IVP NAUSEA/VOMITING 01/28/25 00:00 02/27/25 00:00 Potassium Chloride 100 ml @ 100 mls/hr AD PRN IV POTASSIUM PROTOCOL 01/28/25 03:00 02/27/25 02:59 01/28/25 03:25 100 MLS/HR Potassium Chloride (K-Dur/Klor-Con 20meq) 20 meq AD PRN PO POTASSIUM PROTOCOL 01/28/25 03:00 02/27/25 02:59 01/28/25 18:39 20 MEQ Potassium Chloride (KCl 10% Elixir 20meq/15ml) 20 meq AD PRN PO POTASSIUM PROTOCOL 01/28/25 03:00 02/27/25 02:59 01/30/25 18:17 20 MEQ Sodium Chloride 1,000 ml @ 100 mls/hr Q10H IV 01/27/25 22:00 01/28/25 11:43 DC 01/27/25 22:23 100 MLS/HR Sodium Chloride (Sodium Chloride) 1,000 mg DAILY PO 01/31/25 14:00 02/01/25 10:00 DC 02/01/25 09:27 1,000 MG Sodium Chloride (Sodium Chloride) 1,000 mg TID PO 02/02/25 14:00 03/04/25 13:59 02/02/25 14:06 1,000 MG Sucralfate (Carafate) 1 gm QID PO 01/28/25 13:00 01/30/25 13:22 DC 01/30/25 09:31 1 GM Temazepam (restORIL 15 MG CAP) 15 mg HS PRN PO INSOMNIA/SLEEP 01/28/25 00:00 02/01/25 07:06 DC DIAGNOSTICS / RADIOLOGY: [ ] ASSESSMENT: Acute on chronic hyponatremia, possible SIADH POA Electrolyte derangement (hyponatremia, hypochloremia, hypokalemia, hypomagnesemia) Multiple bleeding skin tears to bilateral upper extremities, POA, on Plavix Elevated BNP chronic Congestive heart failure, LVEF 35-40% per echo on 08/18/2024 Iron deficiency anemia/acute on chronic anemia Uncontrolled hypertension Cachexia Chronic problem list: HTN, HDL, PVD, very hard of hearing, and right BKA, chronic constipation PVD with history of Abdominal aortogram with peripheral runoff of the left lower extremity, directional arthrectomy and drug coated angioplasty of the left d istal L SFA artery and L TP artery and covered stent placement in the left peritoneal artery in 11/23/[address] Roney Acuña. On Plavix Alcohol and tobacco abuse COPD, on Breyna 80/4.5 Right foot gangrene/osteomyelitis s/p right BKA done on 11/28/[address] Dominguez History of Protein calorie malnutrition PLAN: Serum today. On sodium chloride tablets t.i.d. and Bumex Pending on [employer] On board advised fluid restriction and limited diuretic use. Poor prognosis Patient had episode of bradycardia, advised to hold on metoprolol recommended per Cardiology. Iron-deficiency anemia on IV Venofer Start home medications from external med rec: Metoprolol succinate(was held), atorvastatin, Plavix, Breyna. Keep Upper extremity skin tears clean and dry, wound care by nursing. Follow iron studies if found to have iron-deficiency anemia we will replace with IV iron. GI DVT prophylaxis per protocol ATTESTATION BY PHYSICIAN I have seen and examined the patient. I reviewed the documentation, medical decision making, and treatment plan as noted by the mid-level provider above. I agree with the findings and plan of care. HIWOT SHELTON MD, AISHWARYA MD Feb 02, 2025 15:22
--- NOTE | 2025-02-02 15:37 | HMCIMG ---
CT NONCONTRAST CHEST Comparison Study: none History: SUSPECTED MASS Technique: Helical CT of the chest without IV contrast at 5 mm collimation. Coronal and sagittal reformations also done. CT Dose Index (CTDI): 2.38 mGy Dose Length Product (DLP): 94.8 total mGy-cm Findings: The airway is intact. The trachea and major bronchi are unremarkable. The chest exam shows no pulmonary nodules or masses. Parenchymal evaluation shows no infiltrates. Mild centrilobular emphysema of both upper lobes seen. No pulmonary infiltrates or mass lesions are seen. No pleural effusions are identified. There is no pneumothorax. There is no evidence of pneumomediastinum. The nonenhanced exam of the dante and mediastinum is unremarkable. No evidence of hilar enlargement is seen. The aorta shows no aneurysmal dilatation or significant atheromatous calcification. No significant brachiocephalic vascular abnormalities are seen. Status post CABG. There is no pericardial effusion. The rib cage appears unremarkable. The soft tissues of the chest wall are unremarkable. The dorsal spine shows no significant abnormalities. Upper abdomen shows cholelithiasis. IMPRESSION: NORMAL CT OF THE CHEST WITHOUT CONTRAST. This study was performed using dose reduction techniques to include automated exposure control and/or adjustment of the mA and/or kV according to patient size.
[2025-02-03] VITALS (8 sets, daily range): BP systolic 110–138; BP diastolic 45–60; PULSE 58–76; RESP 15–20; TEMP 98–98.6; O2SAT 95–99
[2025-02-03 08:22] LABS: BASOPHILS # (AUTO) 0.02 K/uL (0.00-0.20); BASOPHILS % (AUTO) 0.3 % (0.0-5.0); EOSINOPHILS # (AUTO) 0.03 K/uL (0.00-0.70); EOSINOPHILS % (AUTO) 0.5 % (0.0-8.0); IMMATURE GRANULOCYTE ABSOLUTE 0.02 K/uL (0-1); LYMPHOCYTES # (AUTO) 0.9 K/uL (1.0-4.8); LYMPHOCYTES % (AUTO) 14.8 % (21.0-51.0); MEAN CORPUSCULAR HEMOGLOBIN 30.8 pg (27.0-33.0); MEAN CORPUSCULAR HGB CONC 35.2 g/dL (32.0-36.0); MEAN CORPUSCULAR VOLUME 87.5 fL (79-99); MONOCYTES # (AUTO) 0.9 K/uL (0.1-1.0); MONOCYTES % (AUTO) 15.2 % (3.0-13.0); NEUTROPHILS % (AUTO) 68.9 % (40.0-77.0); PLATELET COUNT (AUTO) 266 K/uL (130-400); RED BLOOD CELL COUNT(AUTO) 2.63 MIL/uL (4.50-6.20); RED CELL DISTRIBUTION WIDTH 14.1 % (11.0-15.5); WHITE BLOOD COUNT (AUTO) 5.9 K/uL (4.8-10.8)
[2025-02-03 08:58] LABS: B-TYPE NATRIURETIC PEPTIDE 177 pg/mL (0-100)
[2025-02-03] MEDS: BUMETANIDE 1 MG TAB PO SCH (08:58)
[2025-02-03] MEDS ORDERED: furoSEMIDE 40 MG TABLET PO SCH (09:00)
[2025-02-03 09:01] LABS: BILIRUBIN,TOTAL 0.4 mg/dL (0.2-1.0); CREATININE 0.6 mg/dL (0.5-1.3); POTASSIUM 3.8 mmol/L (3.5-5.1); TOTAL PROTEIN, SERUM 6.5 g/dL (6.0-8.3)
--- NOTE | 2025-02-03 10:38 | HMCSR ---
APPROVED REPORT EXAM: Two-dimensional and M-mode echocardiogram with Doppler and color Doppler. INDICATION ICD: Congestive heart failure 2D Dimensions IVSd1.1 (0.7-1.1cm)LVEF(%)49.5 (>50%)LVED Vol(simp.)88.0 mL LVDd4.9 (3.8-5.6cm)FS(%)25 %LVES Vol(simp.)35.0 mL PWd1.0 (0.7-1.1cm)LA (2D)4.1 (1.6-4.0cm)LVEF(%, simp.)60 % IVSs1.4 cmAo Root(2D)3.3 (2.0-3.7cm)LA ESV INDEX (BP)42.40 mL/m2 LVDs3.6 (2.5-4.0cm)LVOT diam1.9 (1.8-2.4cm) PWs1.3 cm Deformation Strain Apical 4-18.5 % Apical 2-15.8 % Apical 3-21.4 % Global Strain-18.6 % M-Mode Dimensions EPSS1.4 cm LA (MM)4.7 (1.6-4.0cm) Ao Root(MM)3.7 (2.0-3.7cm) Aortic Valve AoV Vmax1.0 m/Sowmya Peak GR3.8 mmHgLVOT Vmax0.9 m/s AoV VTI0.2 mAo Mean GR2.0 mmHgLVOT VTI0.17 m ANGELIC (VMAX)2.61 cm2AVA (VTI) 2.6 cm2 Mitral Valve MV E Vmax62.0 cm/sDECEL Uxwa056 ms MV A Vmax90.5 cm/sP 1/2 T40 ms E/A ratio0.7MVA (PHT)5.5 cm2 TDI E/E' Medial8.1E/E' Lateral5.5 Medial E' Peak V7.63 cm/sLateral E' Peak V11.22 cm/s Pulmonary Valve PV Vmax0.9 m/sPV Mean GR1.6 mmHg PV Peak GR3.0 mmHg Left Ventricle The left ventricle is normal size. GLS -19.0%. There is normal LV segmental wall motion. There is nor mal left ventricular wall thickness. LVEF is 55-60%. The left ventricular diastolic function is nawaf l. Right Ventricle The right ventricle is normal size. The right ventricular systolic function is normal. Atria The left atrium is mildly dilated. The right atrium size is normal. Aortic Valve The tricuspid aortic valve is sclerotic. No aortic regurgitation is present. There is no aortic valvu lar stenosis. Mitral Valve The mitral valve is normal in structure. There is mild mitral valve regurgitation noted. There is no mitral valve stenosis. Tricuspid Valve The tricuspid valve is normal in structure. There is no tricuspid valve regurgitation noted. Pulmonic Valve The pulmonary valve is normal in structure. There is no pulmonic valvular regurgitation. Great Vessels The aortic root is normal in size. The IVC is normal in size and collapses >50% with inspiration. Pericardium There is no pericardial effusion. Other Information Quality : Adequate Conclusion LVEF is 55-60%. The left atrium is mildly dilated. The tricuspid aortic valve is sclerotic. There is mild mitral valve regurgitation noted.
--- NOTE | 2025-02-03 11:41 | PN ---
[facility] PROGRESS NOTE Date of Service: Feb 03, 2025 Time of Service: 11:28 SUBJECTIVE: 75-year-old male with a history of HTN, HDL, PVD, very hard of hearing, and right BKA who presented to [facility] ED for wound evaluation. ED reported that the son noticed a skin tear to the left elbow that has not stop bleeding for the last two days. The son at bedside states he normally does not speak with his parents much so he was unsure what medications or what medical history the patient has. The patient has an obvious right BKA. ED provider request patient be admitted with the diagnosis of dehydration, hyponatremia, and chronic anemia. I went to assess the patient at bedside in room ED 3. The patient appeared comfortable, in no distress. Per chart review the patient has been intermittently hyponatremic sense 2018, and the patient is on Plavix. The patient was admitted on 08/17/2024 for the diagnosis of dehydration and hyponatremia. The patient was discharged on 08/24/2024. The patient is very hard of hearing, but is awake, alert, and oriented. I informed him of plan of care and he is in agreement with the plan. 01/28/2025. Patient was seen and examined no new complaints. Serum sodium 125. Awaiting urine electrolytes urine osmolality and serum osmolality results. ] 01/29/2025. Patient was seen and examined no new complaints. Serum [id number] urine sodium was 108, may have a component of SIADH, he has systolic heart failure which makes it very difficult to treat with salt tablets. Nephrology has seen the patient and cleared him for discharge they will follow the patient outpatient, patient had an episode of bradycardia metoprolol was held pending cardiology evaluation. 01/30/2025-patient was seen at that is bedside no new complaints noted. Serum sodium 126, potassium 3.3 on protocol. Nephrology advised fluid restriction and added amlodipine for hypertension and IV iron for iron-deficiency anemia. Cardiology advised no evaluation or treatment for arrhythmia which was noted for Mobitz type 1 av block And advised follow up at [facility] for further management and follow up on echo. Advised to hold on metoprolol 01/31/2025-patient was seen at the bedside, he is very difficult to talk since he has hearing difficulty. Last night he was agitated and night nurse has given him haloperidol, which calm him down. Cardiology advice: Extremely poor overall prognosis, hyponatremia and pulmonary congestion best treated by fluid restriction. Consider palliative care. Started on salt tablets 1 g OD daily, after discussing with attending. We will monitor in the a.m. 02/01/2025-patient was seen at the bedside, stable and doing well. His sodium has dropped from 126-122. We stopped on sodium tablets, as it could be possibly due to dilution. Cardiology on board-advised strict fluid restriction and limited diuretic use. He reiterate the prognosis is extremely poor and palliative care should be considered. 02/02/2025-patient was seen at the bedside, stable and oriented. Sodium dropped from 122-120. Patient is started on 1 g sodium t.i.d., and Bumex1 mg oral. Discussed with Nephrology regarding ure-na, spoke with the pharmacy about it does not have 1 at the moment but they said they will order and let us know. Ordered CT chest without contrast, suspected mass causing hyponatremia. 02/03/2025-patient was seen at the bedside, vitals stable. His sodium has improved from 120-126. We will continue on sodium tablets t.i.d. with Bumex. Waiting on [place]. CT chest unremarkable. Earlier notes reported heart rate in 30s to 40s, which he had previously due to morbitz type 1 av block cardiology is aware of the patient has a advised intervention for it and continue conservative management. ECHO EF 55-60% normal left ventricular diastolic function We will speak to case management on palliative care and hospice. REVIEW OF SYSTEMS Unable to obtain ROS from patient due to patient is very hard of hearing. PHYSICAL EXAM GENERAL APPEARANCE: The patient is awake, alert, and oriented, in no acute cardiopulmonary distress. NEUROLOGICAL: Cranial nerves II-XII grossly intact. Motor is 5/5 in bilateral upper and lower extremities proximal to distal. No sensory deficits. HEENT: Face is symmetric. Pupils are equal and reactive. Extraocular movements are intact. NECK: Supple. No JVD. No thyromegaly. No submental, submandibular, pre- /postauricular, occipital or supraclavicular lymphadenopathy. CHEST: Normal chest expansion. No Telemetry. LUNGS: Absence of any rales, rhonchi or any wheezing. CARDIOVASCULAR: Regular. S1 and S2 normal. No appreciable rubs, murmurs or gallops. ABDOMEN: Soft, nontender, and nondistended. There is no rebound, voluntary guarding, or rigidity. : Deferred. No Mckeon. EXTREMITIES: Right BKA. Multiple skin tears to bilateral upper extremities with controlled bleeding. Non-edematous and not cyanotic. No clubbing. Good capillary refill. SKIN: No skin breakdown. Vital Signs (last 8hr) Date Time Temp Pulse Resp B/P (MAP) Pulse Ox O2 Delivery O2 Flow Rate FiO2 02/03/25 09:00 99 Room Air* 0 21 02/03/25 07:48 98.2 68 15 138/54 100 Room Air 02/03/25 04:44 98.1 76 19 129/45 100 Room Air LABS: Laboratory: Test 02/03/25 08:05 02/03/25 05:16 02/02/25 04:57 Range/Units White Blood Count 5.9 4.8-10.8 K/uL Red Blood Count 2.63 L 4.50-6.20 MIL/uL Hemoglobin 8.1 L 14.0-18.0 g/dL Hematocrit 23.0 L 42-54 % Mean Corpuscular Volume 87.5 79-99 fL Mean Corpuscular Hemoglobin 30.8 27.0-33.0 pg Mean Corpuscular Hemoglobin Concent 35.2 32.0-36.0 g/dL Red Cell Distribution Width 14.1 11.0-15.5 % Platelet Count 266 130-400 K/uL Mean Platelet Volume 9.3 7.5-10.5 fL Immature Granulocyte % (Auto) 0.3 0-1 % Neutrophils (%) (Auto) 68.9 40.0-77.0 % Lymphocytes (%) (Auto) 14.8 L 21.0-51.0 % Monocytes (%) (Auto) 15.2 H 3.0-13.0 % Eosinophils (%) (Auto) 0.5 0.0-8.0 % Basophils (%) (Auto) 0.3 0.0-5.0 % Neutrophils # (Auto) 4.0 1.8-7.7 K/uL Lymphocytes # (Auto) 0.9 L 1.0-4.8 K/uL Monocytes # (Auto) 0.9 0.1-1.0 K/uL Eosinophils # (Auto) 0.03 0.00-0.70 K/uL Basophils # (Auto) 0.02 0.00-0.20 K/uL Absolute Immature Granulocyte (auto 0.02 0-1 K/uL Nucleated Red Blood Cells 0.0 0.0-0.19 % White Cell Morphology Comment See comments Sodium Level 126 L 136-145 mmol/L Potassium Level 3.8 3.5-5.1 mmol/L Chloride Level 93 L 101-111 mmol/L Carbon Dioxide Level 26 21-32 mmol/L Blood Urea Nitrogen 15 7-18 mg/dL Creatinine 0.6 0.5-1.3 mg/dL Glomerular Filtration Rate Calc 99 >90 mL/min Random Glucose 83 70-105 mg/dL Total Calcium 8.5 8.5-10.1 mg/dL Total Bilirubin 0.4 0.2-1.0 mg/dL Aspartate Amino Transf (AST/SGOT) 24 10-37 U/L Alanine Aminotransferase (ALT/SGPT) 16 12-78 U/L Alkaline Phosphatase 138 H 50-136 U/L B-Type Natriuretic Peptide 177 H 0-100 pg/mL Total Protein 6.5 6.0-8.3 g/dL Albumin 3.0 L 3.5-5.0 g/dL Whole Blood Glucose 84 70-110 MG/DL Urine Osmolality 375 50-1200 mOsm/kg Urine Random Sodium 97 40-220 mmol/l Urine Random Potassium 25 25-125 mmol/L Urine Random Chloride 92 L 110-250 mmol/L Current Medications Medications (Trade) Dose Ordered Sig/Elliott Route PRN Reason Start Time Stop Time Status Last Admin Dose Admin Acetaminophen (TYLenol 325MG TAB) 650 mg Q6H PRN PO FEVER/MILD PAIN LEVEL 1-3 01/28/25 00:00 02/27/25 00:00 02/01/25 21:32 650 MG Acetaminophen (TYLenol 650MG SUPPOSITORY) 650 mg Q6H PRN RC FEVER / MILD PAIN 1-3 IF NPO 01/28/25 00:00 02/27/25 00:00 Amlodipine Besylate (NorvASC 5MG TAB) 5 mg DAILY PO 01/30/25 09:00 03/01/25 08:59 02/03/25 08:57 5 MG Atorvastatin Calcium (LIPItor 40MG) 40 mg HS PO 01/28/25 21:00 02/27/25 20:59 02/02/25 20:39 40 MG Bumetanide (Bumex 1mg Tab) 1 mg DAILY PO 02/03/25 09:00 03/05/25 08:59 02/03/25 08:58 1 MG Carvedilol (Coreg 3.125MG) 3.125 mg BID PO 02/01/25 09:00 02/02/25 11:43 DC 02/02/25 09:54 3.125 MG Clopidogrel Bisulfate (plaVIX 75MG) 75 mg DAILY PO 01/28/25 09:00 02/27/25 08:59 02/03/25 08:58 75 MG Docusate Sodium (COLace 100MG CAP) 100 mg BID PRN PO c 01/28/25 00:00 02/27/25 00:00 Empaglifozin (Jardiance 10mg) 10 mg DAILY PO 02/01/25 09:00 03/03/25 08:59 02/03/25 08:57 10 MG Famotidine (Pepcid 20mg Tab) 20 mg BID PO 01/28/25 09:00 02/27/25 08:59 02/03/25 08:57 20 MG Furosemide (LASix 40MG TAB) 40 mg DAILY PO 02/03/25 09:00 02/02/25 12:55 DC Hydralazine HCl (APRESOLine 20MG INJ) 10 mg Q6H PRN IV SBP GREATER THAN 180 01/28/25 00:00 02/27/25 00:00 Insulin Human Regular (humuLIN R 100 UNIT/ML 3ML) INSULIN SLIDING SCAL... ACHS SQ 01/28/25 07:30 02/27/25 07:29 Lactulose (Constulose 20gm/ 30ml Udcup) 20 gm Q6H PRN PO CONSTIPATION 01/28/25 00:00 02/27/25 00:00 Lisinopril (Prinivil 40mg) 40 mg DAILY PO 01/29/25 09:00 02/28/25 08:59 02/03/25 08:57 40 MG Magnesium Oxide (Mag-Ox) 400 mg BID PO 01/28/25 21:00 02/27/25 20:59 02/03/25 08:57 400 MG Magnesium Sulfate 50 ml @ 0 mls/hr PROTOCOL PRN IV MAGNESIUM PROTOCOL 01/28/25 03:00 02/27/25 02:59 01/28/25 03:25 25 MLS/HR Metoprolol Succinate (TopROL XL) 50 mg DAILY PO 01/28/25 09:00 01/29/25 08:28 DC 01/28/25 10:31 50 MG Ondansetron HCl (zoFRAN 4MG INJ) 4 mg Q6H PRN IVP NAUSEA/VOMITING 01/28/25 00:00 02/27/25 00:00 Potassium Chloride 100 ml @ 100 mls/hr AD PRN IV POTASSIUM PROTOCOL 01/28/25 03:00 02/27/25 02:59 01/28/25 03:25 100 MLS/HR Potassium Chloride (K-Dur/Klor-Con 20meq) 20 meq AD PRN PO POTASSIUM PROTOCOL 01/28/25 03:00 02/27/25 02:59 01/28/25 18:39 20 MEQ Potassium Chloride (KCl 10% Elixir 20meq/15ml) 20 meq AD PRN PO POTASSIUM PROTOCOL 01/28/25 03:00 02/27/25 02:59 01/30/25 18:17 20 MEQ Sodium Chloride 1,000 ml @ 100 mls/hr Q10H IV 01/27/25 22:00 01/28/25 11:43 DC 01/27/25 22:23 100 MLS/HR Sodium Chloride (Sodium Chloride) 1,000 mg DAILY PO 01/31/25 14:00 02/01/25 10:00 DC 02/01/25 09:27 1,000 MG Sodium Chloride (Sodium Chloride) 1,000 mg TID PO 02/02/25 14:00 03/04/25 13:59 02/03/25 08:57 1,000 MG Sucralfate (Carafate) 1 gm QID PO 01/28/25 13:00 01/30/25 13:22 DC 01/30/25 09:31 1 GM Temazepam (restORIL 15 MG CAP) 15 mg HS PRN PO INSOMNIA/SLEEP 01/28/25 00:00 02/01/25 07:06 DC DIAGNOSTICS / RADIOLOGY: [ ] ASSESSMENT: Acute on chronic hyponatremia, possible SIADH POA Electrolyte derangement (hyponatremia, hypochloremia, hypokalemia, hypomagnesemia) Multiple bleeding skin tears to bilateral upper extremities, POA, on Plavix Elevated BNP chronic Congestive heart failure, LVEF 35-40% per echo on 08/18/2024 Iron deficiency anemia/acute on chronic anemia Uncontrolled hypertension Cachexia Chronic problem list: HTN, HDL, PVD, very hard of hearing, and right BKA, chronic constipation PVD with history of Abdominal aortogram with peripheral runoff of the left lower extremity, directional arthrectomy and drug coated angioplasty of the left distal L SFA artery and L TP artery and covered stent placement in the left peritoneal artery in 11/23/[address] Roney Acuña. On Plavix Alcohol and tobacco abuse COPD, on Breyna 80/4.5 Right foot gangrene/osteomyelitis s/p right BKA done on 11/28/[address] Dominguez History of Protein calorie malnutrition PLAN: Serum [id number] today. On sodium chloride tablets t.i.d. and Bumex Pending on Carrion Stopped on carvedilol by cardiology Credit Officer On board advised fluid restriction and limited diuretic use. Poor prognosis Patient had episode of bradycardia, advised to hold on metoprolol recommended per Cardiology. Iron-deficiency anemia gave IV Venofer Start home medications from external med rec: Metoprolol succinate(was held), atorvastatin, Plavix, Breyna. Keep Upper extremity skin tears clean and dry, wound care by nursing. GI DVT prophylaxis per protocol ATTESTATION BY PHYSICIAN I have seen and examined the patient. I reviewed the documentation, medical de cision making, and treatment plan as noted by the mid-level provider above. I agree with the findings and plan of care. HIWOT SHELTON MD, AISHWARYA MD Feb 03, 2025 11:41
--- NOTE | 2025-02-03 14:31 | PN ---
FOLLOWUP PROGRESS NOTE SUBJECTIVE: A 75-year-old male with history of known chronic hyponatremia. The patient with history of underlying vascular disease. 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 He continued to be noncompliant with his fluid restriction and the patient is being seen as a followup visit for all of the above. REVIEW OF SYSTEMS: GENERAL: He is feeling weak and tired. HEENT: No change in vision. No change in hearing. CARDIOVASCULAR: There is no current chest pain or palpitations. PULMONARY: There is no shortness of breath. GASTROINTESTINAL: He is tolerating a diet. MUSCULOSKELETAL: Complaints of weakness. PHYSICAL EXAMINATION: VITAL SIGNS: Blood pressure 138/54, pulse in the 60s. GENERAL: He is a chronically ill, elderly, lying in bed on the medical floor. HEENT: Head is atraumatic. Pupils are equal, roving to light. Oropharynx is without exudate. Nares clear. NECK: There is no JVP. There is no thyromegaly. No mass. CARDIOVASCULAR: Regular. There is no S3, S4 gallop. LUNGS: Coarse with equal thoracic movement. ABDOMEN: Soft, nondistended, nontender. EXTREMITIES: Reveals no clubbing or cyanosis. NEUROLOGICAL: He is awake. He is alert. LABORATORY DATA: Sodium 126, BUN 15, creatinine 0.6. Hemoglobin 8, hematocrit 23. IMPRESSION: * Acute on chronic renal failure. * Chronic hyponatremia. * Cardiomyopathy. * Vascular disease. PLAN: The patient continues with significant hyponatremia. The patient has a history of known chronic hyponatremia. The patient is asymptomatic from a serum sodium standpoint. The patient is encouraged with the fluid restriction, which is the mainstay of therapy long-term for the hyponatremia. We will continue to follow closely. Once he is discharged, he can follow up in the [facility]. TID: [id number] RECEIPT: [id number]
--- NOTE | 2025-02-03 16:47 | NUR ---
HOSPICE SW spoke with patient's David townsend, regarding hospice and palliative care. Jethro states that family would like for patient to return home. Family does not agree to SNF placement. Jethro stated that one of his brothers was in hospice and family really liked the agency. He states he will speak to patient's spouse and his brother regarding hospice and will call his [id number] to obtain name of hospice agency previously used by family. Jethro states that patient's spouse is crying when speaking about the option of hospice and requested additional time to discuss with family. Patient's nurse made aware. CM/SS to follow up with family regarding decision.
--- NOTE | 2025-02-03 17:22 | PN ---
Cardiology Progress Note Date of Service: 02/03/2025 Attending Applications Development Consultant: Dr. Roney Acuña Primary Applications Development Consultant: Dr. Carlos Mitchell Reason for Consult: AVB Problem List: -Altered mental status -Sinus bradycardiac with intermittent 2:1 AVB, deemed a poor candidate for PPM implantation -HFrEF (LVEF: 35-40% by echo done 08/18/2024) -Electrolyte derangement -ETOH abuse -Tobacco abuse -CAD s/p 3V CABG in 07/2013 -PAD s/p LLE peripheral intervention in 11/2019 s/p right BKA done 11/28/2023 -HTN -HLP -Normocytic normochromic anemia -Noncompliance Subjective: This is a 75y/o male who was seen and evaluated at the bedside today. The patient remains visibly altered and answers in one word responses, but through limited conversation denies any active complaints. There were no overnight reported events. Vitals/Labs Vital Signs Date Time Temp Pulse Resp B/P (MAP) Pulse Ox O2 Delivery O2 Flow Rate FiO2 02/03/25 12:00 98.1 63 17 116/56 100 Room Air 02/03/25 09:00 0 21 General: Disoriented. NAD. Chronically ill appearing. HEENT: NC/AT. Oral mucosa is moist. Neck: No masses or JVD. Lungs: NRD. SCM. Bilateral air entry. Clear breath sounds noted throughout. No obvious wheezing, rales, or rhonchi noted. Cardio: Regular rate. Normal S1 and S2. +S4. No obvious murmurs, gallops, or rubs noted. Abdomen: Soft. NT. ND. Normal active bowel sounds x 4 quadrants. Extremities: No edema, clubbing, or cyanosis. Right BKA Neuro: No obvious focal deficits. Laboratory Tests 02/03/25 08:05 Assessment: -Altered mental status -Sinus bradycardiac with intermittent 2:1 AVB, deemed a poor candidate for PPM implantation -HFrEF (LVEF: 35-40% by echo done 08/18/2024) -Electrolyte derangement -ETOH abuse -Tobacco abuse -CAD s/p 3V CABG in 07/2013 -PAD s/p LLE peripheral intervention in 11/2019 s/p right BKA done 11/28/2023 -HTN -HLP -Normocytic normochromic anemia -Noncompliance Plan: 1. Sinus bradycardiac with intermittent 2:1 AVB, deemed a poor candidate for PPM implantation -12H telemetry: Sinus rhythm with intermittent episodes of 2:1 AVB, HR range: 36-76 bpm -Currently hemodynamically stable and asymptomatic -The patient was deemed to be a poor candidate for PPM implantation and instead it was recommend that he consider Palliative Care/transitioning to DNR/DNI. -Recommend avoiding AV jhoan blocking agents -Please keep the patient on continuous telemetry monitoring and maintain electrolytes within normal parameters. 2. HFrEF (LVEF: 35-40% by echo done 08/18/2024) -BNP: 177, admission: 619 -Continue Bumex 1 mg daily, lisinopril 40 mg daily, and Jardiance 10 mg daily. -He is not a candidate for BB therapy due to his intermittent AVB. -Please record strict I/O's, daily weights, and restrict fluids to less than 2.0L/day 3. CAD s/p 3V CABG in 07/2013 -We will stop clopidogrel and instead start the patient on aspirin 81 mg daily, and he will continue on Jardiance 10 mg daily and atorvastatin 40 mg QHS. This case was discussed with my Supervising Physician, Dr. Roney Acuña, and the above mentioned plan was formulated and agreed upon. -Progress Note written by Cj Mayo, MSN, GASKET FORMER, AGACNP-CJ TAY NP Feb 03, 2025 17:22
[2025-02-04] VITALS (9 sets, daily range): BP systolic 107–142; BP diastolic 44–65; PULSE 0–72; RESP 16–20; TEMP 97.5–98.7; O2SAT 95–99
[2025-02-04 05:32] LABS: BASOPHILS # (AUTO) 0.04 K/uL (0.00-0.20); BASOPHILS % (AUTO) 0.5 % (0.0-5.0); EOSINOPHILS # (AUTO) 0.03 K/uL (0.00-0.70); EOSINOPHILS % (AUTO) 0.4 % (0.0-8.0); HEMATOCRIT 22.7 % (42-54); IMMATURE GRANULOCYTE ABSOLUTE 0.04 K/uL (0-1); LYMPHOCYTES # (AUTO) 1.1 K/uL (1.0-4.8); LYMPHOCYTES % (AUTO) 14.8 % (21.0-51.0); MEAN CORPUSCULAR HEMOGLOBIN 29.9 pg (27.0-33.0); MEAN CORPUSCULAR HGB CONC 33.5 g/dL (32.0-36.0); MEAN CORPUSCULAR VOLUME 89.4 fL (79-99); MONOCYTES # (AUTO) 1.1 K/uL (0.1-1.0); MONOCYTES % (AUTO) 14.8 % (3.0-13.0); PLATELET COUNT (AUTO) 258 K/uL (130-400); RED BLOOD CELL COUNT(AUTO) 2.54 MIL/uL (4.50-6.20); RED CELL DISTRIBUTION WIDTH 14.4 % (11.0-15.5); WHITE BLOOD COUNT (AUTO) 7.3 K/uL (4.8-10.8)
[2025-02-04 05:48] LABS: ALBUMIN 2.9 g/dL (3.5-5.0); BILIRUBIN,TOTAL 0.4 mg/dL (0.2-1.0); CREATININE 0.7 mg/dL (0.5-1.3); POTASSIUM 3.7 mmol/L (3.5-5.1); TOTAL PROTEIN, SERUM 6.5 g/dL (6.0-8.3)
[2025-02-04] MEDS: ASPIRIN 81MG CHEW TAB PO SCH (10:10)
--- NOTE | 2025-02-04 11:20 | PN ---
[facility] PROGRESS NOTE Date of Service: Feb 04, 2025 Time of Service: 11:19 SUBJECTIVE: 75-year-old male with a history of HTN, HDL, PVD, very hard of hearing, and right BKA who [place] [facility] [place]. ED reported that the son noticed a skin tear to the left elbow that has not stop bleeding for the last two days. The son at bedside states he normally does not speak with his parents much so he was unsure what medications or what medical history the patient has. The patient has an obvious right BKA. ED provider request patient be admitted with the diagnosis of dehydration, hyponatremia, and chronic anemia. I went to assess the patient at bedside in room ED 3. The patient appeared comfortable, in no distress. Per chart review the patient has been intermittently hyponatremic sense 2018, and the patient is on Plavix. The patient was admitted on 08/17/2024 for the diagnosis of dehydration and hyponatremia. The patient was discharged on 08/24/2024. The patient is very hard of hearing, but is awake, alert, and oriented. I informed him of plan of care and he is in agreement with the plan. 01/28/2025. Patient was seen and examined no new complaints. Serum sodium 125. Awaiting urine electrolytes urine osmolality and serum osmolality results. ] 01/29/2025. Patient was seen and examined no new complaints. Serum urine sodium was 108, may have a component of SIADH, he has systolic heart failure which makes it very difficult to treat with salt tablets. Nephrology has seen the patient and cleared him for discharge they will follow the patient outpatient, patient had an episode of bradycardia metoprolol was held pending cardiology evaluation. 01/30/2025-patient was seen at that is bedside no new complaints noted. Serum sodium 126, potassium 3.3 on protocol. Nephrology advised fluid restriction and added amlodipine for hypertension and IV iron for iron-deficiency anemia. Cardiology advised no evaluation or treatment for arrhythmia which was noted for Mobitz type 1 av block And advised follow up at [facility] for further management and follow up on echo. Advised to hold on metoprolol 01/31/2025-patient was seen at the bedside, he is very difficult to talk since he has hearing difficulty. Last night he was agitated and night nurse has given him haloperidol, which calm him down. Cardiology advice: Extremely poor overall prognosis, hyponatremia and pulmonary congestion best treated by fluid restriction. Consider palliative care. Started on salt tablets 1 g OD daily, after discussing with attending. We will monitor in the a.m. 02/01/2025-patient was seen at the bedside, stable and doing well. His sodium has dropped from 126-122. We stopped on sodium tablets, as it could be possibly due to dilution. Cardiology on board-advised strict fluid restriction and limited diuretic use. He reiterate the prognosis is extremely poor and palliative care should be considered. 02/02/2025-patient was seen at the bedside, stable and oriented. Sodium dropped from 122-120. Patient is started on 1 g sodium t.i.d., and Bumex1 mg oral. Discussed with Nephrology regarding ure-na, spoke with the pharmacy about it does not have 1 at the moment but they said they will order and let us know. Ordered CT chest without contrast, suspected mass causing hyponatremia. 02/03/2025-patient was seen at the bedside, vitals stable. His sodium has improved from 120-126. We will continue on sodium tablets t.i.d. with Bumex. Waiting on [place]. CT chest unremarkable. Earlier notes reported heart rate in 30s to 40s, which he had previously due to morbitz type 1 av block cardiology is aware of the patient has a advised intervention for it and continue conservative management. ECHO EF 55-60% normal left ventricular diastolic function We will speak to case management on palliative care and hospice. REVIEW OF SYSTEMS Unable to obtain ROS from patient due to patient is very hard of hearing. PHYSICAL EXAM GENERAL APPEARANCE: The patient is awake, alert, and oriented, in no acute cardiopulmonary distress. NEUROLOGICAL: Cranial nerves II-XII grossly intact. Motor is 5/5 in bilateral upper and lower extremities proximal to distal. No sensory deficits. HEENT: Face is symmetric. Pupils are equal and reactive. Extraocular movements are intact. NECK: Supple. No JVD. No thyromegaly. No submental, submandibular, pre- /postauricular, occipital or supraclavicular lymphadenopathy. CHEST: Normal chest expansion. No Telemetry. LUNGS: Absence of any rales, rhonchi or any wheezing. CARDIOVASCULAR: Regular. S1 and S2 normal. No appreciable rubs, murmurs or gallops. ABDOMEN: Soft, nontender, and nondistended. There is no rebound, voluntary guarding, or rigidity. : Deferred. No Mckeon. EXTREMITIES: Right BKA. Multiple skin tears to bilateral upper extremities with controlled bleeding. Non-edematous and not cyanotic. No clubbing. Good capillary refill. SKIN: No skin breakdown. Vital Signs (last 8hr) Date Time Temp Pulse Resp B/P (MAP) Pulse Ox O2 Delivery O2 Flow Rate FiO2 02/04/25 08:52 0 02/04/25 08:00 98.2 72 18 142/65 100 Room Air 02/04/25 03:41 98.8 69 18 108/44 99 Room Air LABS: Laboratory: Test 02/04/25 05:27 02/04/25 05:04 02/03/25 08:05 Range/Units White Blood Count 7.3 4.8-10.8 K/uL Red Blood Count 2.54 L 4.50-6.20 MIL/uL Hemoglobin 7.6 L 14.0-18.0 g/dL Hematocrit 22.7 L 42-54 % Mean Corpuscular Volume 89.4 79-99 fL Mean Corpuscular Hemoglobin 29.9 27.0-33.0 pg Mean Corpuscular Hemoglobin Concent 33.5 32.0-36.0 g/dL Red Cell Distribution Width 14.4 11.0-15.5 % Platelet Count 258 130-400 K/uL Mean Platelet Volume 8.9 7.5-10.5 fL Immature Granulocyte % (Auto) 0.5 0-1 % Neutrophils (%) (Auto) 69.0 40.0-77.0 % Lymphocytes (%) (Auto) 14.8 L 21.0-51.0 % Monocytes (%) (Auto) 14.8 H 3.0-13.0 % Eosinophils (%) (Auto) 0.4 0.0-8.0 % Basophils (%) (Auto) 0.5 0.0-5.0 % Neutrophils # (Auto) 5.0 1.8-7.7 K/uL Lymphocytes # (Auto) 1.1 1.0-4.8 K/uL Monocytes # (Auto) 1.1 H 0.1-1.0 K/uL Eosinophils # (Auto) 0.03 0.00-0.70 K/uL Basophils # (Auto) 0.04 0.00-0.20 K/uL Absolute Immature Granulocyte (auto 0.04 0-1 K/uL Nucleated Red Blood Cells 0.0 0.0-0.19 % Sodium Level 130 L 136-145 mmol/L Potassium Level 3.7 3.5-5.1 mmol/L Chloride Level 96 L 101-111 mmol/L Carbon Dioxide Level 27 21-32 mmol/L Blood Urea Nitrogen 19 H 7-18 mg/dL Creatinine 0.7 0.5-1.3 mg/dL Glomerular Filtration Rate Calc 95 >90 mL/min Random Glucose 85 70-105 mg/dL Total Calcium 8.5 8.5-10.1 mg/dL Total Bilirubin 0.4 0.2-1.0 mg/dL Aspartate Amino Transf (AST/SGOT) 26 10-37 U/L Alanine Aminotransferase (ALT/SGPT) 17 12-78 U/L Alkaline Phosphatase 132 50-136 U/L Total Protein 6.5 6.0-8.3 g/dL Albumin 2.9 L 3.5-5.0 g/dL Whole Blood Glucose 88 70-110 MG/DL White Cell Morphology Comment See comments B-Type Natriuretic Peptide 177 H 0-100 pg/mL Current Medications Medications (Trade) Dose Ordered Sig/Elliott Route PRN Reason Start Time Stop Time Status Last Admin Dose Admin Acetaminophen (TYLenol 325MG TAB) 650 mg Q6H PRN PO FEVER/MILD PAIN LEVEL 1-3 01/28/25 00:00 02/27/25 00:00 02/03/25 21:07 650 MG Acetaminophen (TYLenol 650MG SUPPOSITORY) 650 mg Q6H PRN RC FEVER / MILD PAIN 1-3 IF NPO 01/28/25 00:00 02/27/25 00:00 Amlodipine Besylate (NorvASC 5MG TAB) 5 mg DAILY PO 01/30/25 09:00 03/01/25 08:59 02/04/25 10:11 5 MG Aspirin (Aspirin 81mg Chew Tab) 81 mg DAILY PO 02/04/25 09:00 03/06/25 08:59 02/04/25 10:10 81 MG Atorvastatin Calcium (LIPItor 40MG) 40 mg HS PO 01/28/25 21:00 02/27/25 20:59 02/03/25 21:06 40 MG Bumetanide (Bumex 1mg Tab) 1 mg DAILY PO 02/03/25 09:00 03/05/25 08:59 02/04/25 10:11 1 MG Carvedilol (Coreg 3.125MG) 3.125 mg BID PO 02/01/25 09:00 02/02/25 11:43 DC 02/02/25 09:54 3.125 MG Clopidogrel Bisulfate (plaVIX 75MG) 75 mg DAILY PO 01/28/25 09:00 02/03/25 16:51 DC 02/03/25 08:58 75 MG Docusate Sodium (COLace 100MG CAP) 100 mg BID PRN PO c 01/28/25 00:00 02/27/25 00:00 Empaglifozin (Jardiance 10mg) 10 mg DAILY PO 02/01/25 09:00 03/03/25 08:59 02/04/25 10:11 10 MG Famotidine (Pepcid 20mg Tab) 20 mg BID PO 01/28/25 09:00 02/27/25 08:59 02/04/25 10:10 20 MG Furosemide (LASix 40MG TAB) 40 mg DAILY PO 02/03/25 09:00 02/02/25 12:55 DC Hydralazine HCl (APRESOLine 20MG INJ) 10 mg Q6H PRN IV SBP GREATER THAN 180 01/28/25 00:00 02/27/25 00:00 Insulin Human Regular (humuLIN R 100 UNIT/ML 3ML) INSULIN SLIDING SCAL... ACHS SQ 01/28/25 07:30 02/27/25 07:29 Lactulose (Constulose 20gm/ 30ml Udcup) 20 gm Q6H PRN PO CONSTIPATION 01/28/25 00:00 02/27/25 00:00 Lisinopril (Prinivil 40mg) 40 mg DAILY PO 01/29/25 09:00 02/28/25 08:59 02/04/25 10:11 40 MG Magnesium Oxide (Mag-Ox) 400 mg BID PO 01/28/25 21:00 02/27/25 20:59 02/04/25 10:11 400 MG Magnesium Sulfate 50 ml @ 0 mls/hr PROTOCOL PRN IV MAGNESIUM PROTOCOL 01/28/25 03:00 02/27/25 02:59 01/28/25 03:25 25 MLS/HR Metoprolol Succinate (TopROL XL) 50 mg DAILY PO 01/28/25 09:00 01/29/25 08:28 DC 01/28/25 10:31 50 MG Ondansetron HCl (zoFRAN 4MG INJ) 4 mg Q6H PRN IVP NAUSEA/VOMITING 01/28/25 00:00 02/27/25 00:00 Potassium Chloride 100 ml @ 100 mls/hr AD PRN IV POTASSIUM PROTOCOL 01/28/25 03:00 02/27/25 02:59 01/28/25 03:25 100 MLS/HR Potassium Chloride (K-Dur/Klor-Con 20meq) 20 meq AD PRN PO POTASSIUM PROTOCOL 01/28/25 03:00 02/27/25 02:59 01/28/25 18:39 20 MEQ Potassium Chloride (KCl 10% Elixir 20meq/15ml) 20 meq AD PRN PO POTASSIUM PROTOCOL 01/28/25 03:00 02/27/25 02:59 01/30/25 18:17 20 MEQ Sodium Chloride 1,000 ml @ 100 mls/hr Q10H IV 01/27/25 22:00 01/28/25 11:43 DC 01/27/25 22:23 100 MLS/HR Sodium Chloride (Sodium Chloride) 1,000 mg DAILY PO 01/31/25 14:00 02/01/25 10:00 DC 02/01/25 09:27 1,000 MG Sodium Chloride (Sodium Chloride) 1,000 mg TID PO 02/02/25 14:00 03/04/25 13:59 02/04/25 10:14 1,000 MG Sucralfate (Carafate) 1 gm QID PO 01/28/25 13:00 01/30/25 13:22 DC 01/30/25 09:31 1 GM Temazepam (restORIL 15 MG CAP) 15 mg HS PRN PO INSOMNIA/SLEEP 01/28/25 00:00 02/01/25 07:06 DC DIAGNOSTICS / RADIOLOGY: [ ] ASSESSMENT: Acute on chronic hyponatremia, possible SIADH POA Electrolyte derangement (hyponatremia, hypochloremia, hypokalemia, hypo magnesemia) Multiple bleeding skin tears to bilateral upper extremities, POA, on Plavix Elevated BNP chronic Congestive heart failure, LVEF 35-40% per echo on 08/18/2024 Iron deficiency anemia/acute on chronic anemia Uncontrolled hypertension Cachexia Chronic problem list: HTN, HDL, PVD, very hard of hearing, and right BKA, chronic constipation PVD with history of Abdominal aortogram with peripheral runoff of the left lower extremity, directional arthrectomy and drug coated angioplasty of the left distal L SFA artery and L TP artery and covered stent placement in the left peritoneal artery in 11/23/[address] Roney Acuña. On Plavix Alcohol and tobacco abuse COPD, on Breyna 80/4.5 Right foot gangrene/osteomyelitis s/p right BKA done on 11/28/[address] Dominguez History of Protein calorie malnutrition PLAN: Serum [id number] today. On sodium chloride tablets t.i.d. and Bumex Pending on Carrion Stopped on carvedilol by cardiology Dumper [employer]er On board advised fluid restriction and limited diuretic use. Poor prognosis Patient had episode of bradycardia, advised to hold on metoprolol recommended per Cardiology. Iron-deficiency anemia gave IV Venofer Start home medications from external med rec: Metoprolol succinate(was held), atorvastatin, Plavix, Breyna. Keep Upper extremity skin tears clean and dry, wound care by nursing. GI DVT prophylaxis per protocol CAT MI MD Feb 04, 2025 11:19
--- NOTE | 2025-02-04 14:18 | PN ---
FOLLOWUP PROGRESS NOTE SUBJECTIVE: A 75-year-old male who has had prolonged hospital course. The patient with a history of diabetes mellitus and hypertension. He has a history of vascular disease. The patient has a history of chronic hyponatremia. Serum sodium has been improving. The patient is seen by Cardiology and continues with medical management for his vascular disease, and he is being seen as a followup visit. REVIEW OF SYSTEMS: GENERAL: He is feeling weak and tired. HEENT: No change in vision. No change in hearing. CARDIOVASCULAR: There is no current chest pain or palpitations. PULMONARY: Denies any shortness of breath. GASTROINTESTINAL: The patient is tolerating a diet. MUSCULOSKELETAL: Complains of weakness. PHYSICAL EXAMINATION: VITAL SIGNS: Blood pressure 142/65, pulse in the 70s, afebrile. GENERAL: He is a chronically ill male, thin, lying in bed on the medical floor. HEENT: Head is atraumatic. Pupils equal, roving to light. Oropharynx is without exudate. Nares clear. NECK: There is no JVP. There is no thyromegaly. No mass. CARDIOVASCULAR: Regular. No S2 or S4. LUNGS: Coarse with equal thoracic movement. ABDOMEN: Soft, nondistended, and nontender. EXTREMITIES: There is no edema. LABORATORY DATA: Sodium 130, potassium 3.7, BUN 19, creatinine 0.7. Hemoglobin 7.6, hematocrit 22. IMPRESSION: * Renal dysfunction. * Hyponatremia. * Vascular disease. * Diabetes mellitus. PLAN: The patient's serum sodium continues to slowly improve. The patient has a history of chronic hyponatremia. The patient is asymptomatic from a serum sodium standpoint. Once the patient is discharged, he can follow up in the Renal clinic. TID: [id number] RECEIPT: [id number]
--- NOTE | 2025-02-04 16:36 | NUR ---
CM NOTE/MPOA CM was advised by nursing that family is asking about MPOA arrangements. CM reviewed previous admission. MPOA paperwork was completed last admission and patient appointed daughter Norma Negrete [phone]. CM spoke to daughter regarding MD recommendations for hospice. CM updated with loin trimmer notes regarding poor prognosis and hospice recommendations. States she will discuss with siblings. Voiced that patient has limited assistance at home. Reports patient's spouse "is not in all her senses" and step son David lives in home but is "never home". CM discussed possible hospice home placement. States she will consider and will follow up with hospital social worker tomorrow. States she will be in hospital tomorrow at 1000 AM. CM updated primary nurse and flagged MPOA paperwork in chart.
[2025-02-05 03:14] VITALS: BP 120/53; PULSE 64; RESP 16; TEMP 97.9
[2025-02-05 05:45] LABS: BASOPHILS # (AUTO) 0.04 K/uL (0.00-0.20); BASOPHILS % (AUTO) 0.6 % (0.0-5.0); EOSINOPHILS # (AUTO) 0.09 K/uL (0.00-0.70); EOSINOPHILS % (AUTO) 1.3 % (0.0-8.0); HEMATOCRIT 23.7 % (42-54); IMMATURE GRANULOCYTE ABSOLUTE 0.02 K/uL (0-1); LYMPHOCYTES # (AUTO) 1.3 K/uL (1.0-4.8); LYMPHOCYTES % (AUTO) 17.8 % (21.0-51.0); MEAN CORPUSCULAR HEMOGLOBIN 30.7 pg (27.0-33.0); MEAN CORPUSCULAR HGB CONC 34.2 g/dL (32.0-36.0); MEAN CORPUSCULAR VOLUME 89.8 fL (79-99); MONOCYTES % (AUTO) 13.7 % (3.0-13.0); NEUTROPHILS # (AUTO) 4.7 K/uL (1.8-7.7); NEUTROPHILS % (AUTO) 66.3 % (40.0-77.0); PLATELET COUNT (AUTO) 269 K/uL (130-400); RED BLOOD CELL COUNT(AUTO) 2.64 MIL/uL (4.50-6.20); RED CELL DISTRIBUTION WIDTH 14.8 % (11.0-15.5)
[2025-02-05 06:02] LABS: CREATININE 0.8 mg/dL (0.5-1.3); POTASSIUM 3.6 mmol/L (3.5-5.1)
[2025-02-05 08:10] VITALS: BP 134/62; PULSE 67; RESP 17; TEMP 98.2
--- NOTE | 2025-02-05 08:50 | NUR ---
HOSPICE f/u Sw spoke to daughter/MARY Norma [phone]. Daughter states she was not aware that pt was still in hospital, and hospice recommendation came as huge shock. Daughter not understanding reason for hospice and wants to speak to MDs before making any decisions. She and her brother will be here this am to try and catch MDs. Daughter to recontact if she decides on hospice
[2025-02-05 09:00] VITALS: O2SAT 100
--- NOTE | 2025-02-05 09:13 | PN ---
FOLLOWUP PROGRESS NOTE SUBJECTIVE: A 75-year-old male who has had a prolonged hospital course. The patient with a history of known vascular disease. The patient with a history of cardiomyopathy. He presented to the hospital and was found to have significant hyponatremia. The patient's serum sodium has been fairly stable. The patient has been transferred out to the medical floor and he is being seen as a followup visit for all of the above. REVIEW OF SYSTEMS: GENERAL: The patient is feeling weak and tired. HEENT: No change in vision. No change in hearing. No nasal discharge. CARDIOVASCULAR: There is no current chest pain or palpitation. PULMONARY: Shortness of breath. GASTROINTESTINAL: He is tolerating a diet. MUSCULOSKELETAL: Complaints of weakness. PHYSICAL EXAMINATION: VITAL SIGNS: Blood pressure is 134/62, pulse in the 70s. He is afebrile. GENERAL: He is a chronically ill, elderly, lying in bed on the medical floor. HEENT: Head is atraumatic. Pupils are equal, roving to light. Oropharynx is without exudate. Nares clear. NECK: There is no JVP. There is no thyromegaly. No masses. CARDIOVASCULAR: Regular. There is no S3 or S4 gallop. LUNGS: Coarse with equal thoracic movement. ABDOMEN: Soft, nondistended, and nontender. EXTREMITIES: Reveal no clubbing, no cyanosis. NEUROLOGICAL: He is awake. He is alert. He is oriented. SKIN: Reveals no rash or nodule. BACK: There is no CVA tenderness. No back deformities. LABORATORY DATA: Sodium 129, potassium 3.6, chloride 97, bicarbonate 18, creatinine 0.8. Hemoglobin 8, hematocrit 23. IMPRESSION: * Renal dysfunction. * Hyponatremia. * Coronary artery disease. * Vascular disease. PLAN: The patient's serum sodium has remained fairly stable. He has a history of known chronic hyponatremia. I have discussed with the patient on multiple occasions in regards to compliance with his fluid restriction. The patient is asymptomatic from a hyponatremia standpoint. The patient can safely be discharged from a renal standpoint. If the patient is discharged, the patient can follow up in the Renal Clinic. TID: [id number] RECEIPT: [id number]
[2025-02-05 11:48] VITALS: BP 111/54; PULSE 58; RESP 17; TEMP 98.2
[2025-02-05] MEDS ORDERED: EMPA10TA PO (12:27)
[2025-02-05] MEDS ORDERED: BUME1TAB7 PO (12:27)
[2025-02-05] MEDS ORDERED: AMLO5TAB5 PO (12:27)
[2025-02-05] MEDS ORDERED: LISI40TA9 PO (12:27)
[2025-02-05] MEDS ORDERED: SODI100037 PO (12:27)
[2025-02-05] MEDS ORDERED: FAMO20TA8 PO (12:27)
[2025-02-05] MEDS ORDERED: ASPI-1005 PO (12:50)
--- NOTE | 2025-02-05 12:57 | DS ---
Discharge Summary Hospital Course Summary: 75-year-old male with a history of HTN, HDL, PVD, very hard of hearing, and right BKA who presented to [facility] for wound evaluation. ED reported that the son noticed a skin tear to the left elbow that has not stop bleeding for the last two days. The son at bedside states he normally does not speak with his parents much so he was unsure what medications or what medical history the patient has. The patient has an obvious right BKA. ED provider request patient be admitted with the diagnosis of dehydration, hyponatremia, and chronic anemia. I went to assess the patient at bedside in room ED 3. The patient appeared comfortable, in no distress. Per chart review the patient has been intermittently hyponatremic sense 2019, and the patient is on Plavix. The patient was admitted on 08/17/2024 for the diagnosis of dehydration and hyponatremia. The patient was discharged on 08/24/2024. The patient is very hard of hearing, but is awake, alert, and oriented. I informed him of plan of care and he is in agreement with the plan. 01/28/2025. Patient was seen and examined no new complaints. Serum sodium 125. Awaiting urine electrolytes urine osmolality and serum osmolality results. ] 01/29/2025. Patient was seen and examined no new complaints. Serum urine sodium was 108, may have a component of SIADH, he has systolic heart failure which makes it very difficult to treat with salt tablets. Nephrology has seen the patient and cleared him for discharge they will follow the patient outpatient, patient had an episode of bradycardia metoprolol was held pending cardiology evaluation. 01/30/2025-patient was seen at that is bedside no new complaints noted. Serum sodium 126, potassium 3.3 on protocol. Nephrology advised fluid restriction and added amlodipine for hypertension and IV iron for iron-deficiency anemia. Cardiology advised no evaluation or treatment for arrhythmia which was noted for Mobitz type 1 av block And advised follow up at [facility] for further management and follow up on echo. Advised to hold on metoprolol 01/31/2025-patient was seen at the bedside, he is very difficult to talk since he has hearing difficulty. Last night he was agitated and night nurse has given him haloperidol, which calm him down. Cardiology advice: Extremely poor overall prognosis, hyponatremia and pulmonary congestion best treated by fluid restriction. Consider palliative care. Started on salt tablets 1 g OD daily, after discussing with attending. We will monitor in the a.m. 02/01/2025-patient was seen at the bedside, stable and doing well. His sodium has dropped from 126-122. We stopped on sodium tablets, as it could be possibly due to dilution. Cardiology on board-advised strict fluid restriction and limited diuretic use. He reiterate the prognosis is extremely poor and palliative care should be considered. 02/02/2025-patient was seen at the bedside, stable and oriented. Sodium dropped from 122-120. Patient is started on 1 g sodium t.i.d., and Bumex1 mg oral. Discussed with Nephrology regarding ure-na, spoke with the pharmacy about it does not have 1 at the moment but they said they will order and let us know. Ordered CT chest without contrast, suspected mass causing hyponatremia. 02/03/2025-patient was seen at the bedside, vitals stable. His sodium has improved from 120-126. We will continue on sodium tablets t.i.d. with Bumex. Waiting on [place]. CT chest unremarkable. Earlier notes reported heart rate in 30s to 40s, which he had previously due to morbitz type 1 av block cardiology is aware of the patient has a advised intervention for it and continue conservative management. ECHO EF 55-60% normal left ventricular diastolic function We will speak to case management on palliative care and hospice. 02/04/2025 Patient seen and examined along with the RN. No new complaints. , serum sodium is 129. Patient family was contacted again for hospice. Hospice was refused patient we will be discharged home with p.o. salt tablets and Bumex lisinopril and Jardiance, Plavix was stopped as per Cardiology and aspirin was started. Senior [employer] Designer(s): MAU NERI MD: Nephrology for hyponatremia, recommended fluid restrict ion. And discontinue IV fluids. Determined patient was started on salt tablets. GEENA LEROY MD: Nephrology: ANGIE HUIZAR MD: Cardiology: rhythm strips and they demonstrate AV Wenckebach without significant bradycardia or prolonged pauses. Impression and recommendation: Patient may be mildly volume overloaded as I believe his elevation of BNP is associated with pulmonary engorgement and I believe his vascularity is somewhat engorged on chest x-ray, if this was an upright film. Given that he also has severe hyponatremia, renal service is best a pointed to control volume and sodium. I would not recommend any further evaluation or treatment of the arrhythmia. Dr. Roney Acuña : Cardiology Found to have Sinus bradycardiac with intermittent 2:1 AVB, deemed a poor candidate for PPM implantation Telemetry showed Sinus rhythm with intermittent episodes of 2:1 AVB, HR range: 36-76 bpm Remained hemodynamically stable and asymptomatic The patient was deemed to be a poor candidate for PPM implantation and instead it was recommend that he consider Palliative Care/transitioning to DNR/DNI. This was discussed with patient's family. Recommend avoiding AV jhoan blocking agents Please keep the patient on continuous telemetry monitoring and maintain electrolytes within normal parameters. HFrEF (LVEF: 35-40% by echo done 08/18/2024) -Continue Bumex 1 mg daily, lisinopril 40 mg daily, and Jardiance 10 mg daily. -He is not a candidate for BB therapy due to his intermittent AVB. restrict fluids to less than 2.0L/day 3. CAD s/p 3V CABG in 07/2013 -We will stop clopidogrel and instead start the patient on aspirin 81 mg daily, Procedure(s): None. Vital Signs Date Time Temp Pulse Resp B/P (MAP) Pulse Ox O2 Delivery O2 Flow Rate FiO2 02/05/25 11:48 98.2 58 17 111/54 99 Room Air 02/04/25 21:00 0 21 Laboratory Tests Test 02/03/25 16:06 02/03/25 19:11 02/04/25 05:04 02/04/25 05:27 Whole Blood Glucose 98 MG/DL (70-110) 172 MG/DL (70-110) #H 88 MG/DL (70-110) White Blood Count 7.3 K/uL (4.8-10.8) Red Blood Count 2.54 MIL/uL (4.50-6.20) L Hemoglobin 7.6 g/dL (14.0-18.0) L Hematocrit 22.7 % (42-54) L Mean Corpuscular Volume 89.4 fL (79-99) Mean Corpuscular Hemoglobin 29.9 pg (27.0-33.0) Mean Corpuscular Hemoglobin Concent 33.5 g/dL (32.0-36.0) Red Cell Distribution Width 14.4 % (11.0-15.5) Platelet Count 258 K/uL (130-400) Mean Platelet Volume 8.9 fL (7.5-10.5) Immature Granulocyte % (Auto) 0.5 % (0-1) Neutrophils (%) (Auto) 69.0 % (40.0-77.0) Lymphocytes (%) (Auto) 14.8 % (21.0-51.0) L Monocytes (%) (Auto) 14.8 % (3.0-13.0) H Eosinophils (%) (Auto) 0.4 % (0.0-8.0) Basophils (%) (Auto) 0.5 % (0.0-5.0) Neutrophils # (Auto) 5.0 K/uL (1.8-7.7) Lymphocytes # (Auto) 1.1 K/uL (1.0-4.8) Monocytes # (Auto) 1.1 K/uL (0.1-1.0) H Eosinophils # (Auto) 0.03 K/uL (0.00-0.70) Basophils # (Auto) 0.04 K/uL (0.00-0.20) Absolute Immature Granulocyte (auto 0.04 K/uL (0-1) Nucleated Red Blood Cells 0.0 % (0.0-0.19) Sodium Level 130 mmol/L (136-145) L Potassium Level 3.7 mmol/L (3.5-5.1) Chloride Level 96 mmol/L (101-111) L Carbon Dioxide Level 27 mmol/L (21-32) Blood Urea Nitrogen 19 mg/dL (7-18) H Creatinine 0.7 mg/dL (0.5-1.3) Glomerular Filtration Rate Calc 95 mL/min (>90) Random Glucose 85 mg/dL (70-105) Total Calcium 8.5 mg/dL (8.5-10.1) Total Bilirubin 0.4 mg/dL (0.2-1.0) Aspartate Amino Transferase (AST) 26 U/L (10-37) Alanine Aminotransferase (ALT) 17 U/L (12-78) Alkaline Phosphatase 132 U/L (50-136) Total Protein 6.5 g/dL (6.0-8.3) Albumin 2.9 g/dL (3.5-5.0) L Test 02/04/25 11:35 02/04/25 16:03 02/04/25 19:33 02/05/25 05:27 Whole Blood Glucose 125 MG/DL (70-110) H 114 MG/DL (70-110) H 116 MG/DL (70-110) H 84 MG/DL (70-110) Test 02/05/25 05:38 02/05/25 11:11 White Blood Count 7.0 K/uL (4.8-10.8) Red Blood Count 2.64 MIL/uL (4.50-6.20) L Hemoglobin 8.1 g/dL (14.0-18.0) L Hematocrit 23.7 % (42-54) L Mean Corpuscular Volume 89.8 fL (79-99) Mean Corpuscular Hemoglobin 30.7 pg (27.0-33.0) Mean Corpuscular Hemoglobin Concent 34.2 g/dL (32.0-36.0) Red Cell Distribution Width 14.8 % (11.0-15.5) Platelet Count 269 K/uL (130-400) Mean Platelet Volume 9.0 fL (7.5-10.5) Immature Granulocyte % (Auto) 0.3 % (0-1) Neutrophils (%) (Auto) 66.3 % (40.0-77.0) Lymphocytes (%) (Auto) 17.8 % (21.0-51.0) L Monocytes (%) (Auto) 13.7 % (3.0-13.0) H Eosinophils (%) (Auto) 1.3 % (0.0-8.0) Basophils (%) (Auto) 0.6 % (0.0-5.0) Neutrophils # (Auto) 4.7 K/uL (1.8-7.7) Lymphocytes # (Auto) 1.3 K/uL (1.0-4.8) Monocytes # (Auto) 1.0 K/uL (0.1-1.0) Eosinophils # (Auto) 0.09 K/uL (0.00-0.70) Basophils # (Auto) 0.04 K/uL (0.00-0.20) Absolute Immature Granulocyte (auto 0.02 K/uL (0-1) Nucleated Red Blood Cells 0.0 % (0.0-0.19) Sodium Level 129 mmol/L (136-145) L Potassium Level 3.6 mmol/L (3.5-5.1) Chloride Level 97 mmol/L (101-111) L Carbon Dioxide Level 28 mmol/L (21-32) Blood Urea Nitrogen 21 mg/dL (7-18) H Creatinine 0.8 mg/dL (0.5-1.3) Glomerular Filtration Rate Calc 91 mL/min (>90) Random Glucose 86 mg/dL (70-105) Total Calcium 8.6 mg/dL (8.5-10.1) Whole Blood Glucose 73 MG/DL (70-110) [place] [id number] [address] IMAGING REPORT Signed PATIENT: MARTHA GUTIERREZ MR#: [id number] : 1950 SEX: M AGE: 75 LOCATION: [facility] ORDER 1142 STATUS: ADM IN REPORT#: [id number] SERVICE 1141 REASON: CHF ORDERING PHYSICIAN: SUSANNE MCDANIEL PROCEDURE: ECHO CMP - ECHO 2-D COMPLETE APPROVED REPORT EXAM: Two-dimensional and M-mode echocardiogram with Doppler and color Doppler. INDICATION ICD: Congestive heart failure 2D Dimensions IVSd 1.1 (0.7-1.1cm) LVEF(%) 49.5 (>50%) LVED Vol(simp.) 88.0 mL LVDd 4.9 (3.8-5.6cm) FS(%) 25 % LVES Vol(simp.) 35.0 mL PWd 1.0 (0.7-1.1cm) LA (2D) 4.1 (1.6-4.0cm) LVEF(%, simp.) 60 % IVSs 1.4 cm Ao Root(2D) 3.3 (2.0-3.7cm) LA ESV INDEX (BP) 42.40 mL/m2 LVDs 3.6 (2.5-4.0cm) LVOT diam 1.9 (1.8-2.4cm) PWs 1.3 cm Deformation Strain Apical 4 -18.5 % Apical 2 -15.8 % Apical 3 -21.4 % Global Strain -18.6 % M-Mode Dimensions EPSS 1.4 cm LA (MM) 4.7 (1.6-4.0cm) Ao Root(MM) 3.7 (2.0-3.7cm) Aortic Valve AoV Vmax 1.0 m/s Ao Peak GR 3.8 mmHg LVOT Vmax 0.9 m/s AoV VTI 0.2 m Ao Mean GR 2.0 mmHg LVOT VTI 0.17 m ANGELIC (VMAX) 2.61 cm2 ANGELIC (VTI) 2.6 cm2 Mitral Valve MV E Vmax 62.0 cm/s DECEL Time 112 ms MV A Vmax 90.5 cm/s P 1/2 T 40 ms E/A ratio 0.7 MVA (PHT) 5.5 cm2 TDI E/E' Medial 8.1 E/E' Lateral 5.5 Medial E' Peak V 7.63 cm/s Lateral E' Peak V 11.22 cm/s Pulmonary Valve PV Vmax 0.9 m/s PV Mean GR 1.6 mmHg PV Peak GR 3.0 mmHg Left Ventricle The left ventricle is normal size. GLS -19.0%. There is normal LV segmental wall motion. There is normal left ventricular wall thickness. LVEF is 55-60%. The left ventricular diastolic function is normal. Right Ventricle The right ventricle is normal size. The right ventricular systolic function is normal. Atria The left atrium is mildly dilated. The right atrium size is normal. Aortic Valve The tricuspid aortic valve is sclerotic. No aortic regurgitation is present. There is no aortic valvular stenosis. Mitral Valve The mitral valve is normal in structure. There is mild mitral valve regurgitation noted. There is no mitral valve stenosis. Tricuspid Valve The tricuspid valve is normal in structure. There is no tricuspid valve regurgitation noted. Pulmonic Valve The pulmonary valve is normal in structure. There is no pulmonic valvular regurgitation. Great Vessels The aortic root is normal in size. The IVC is normal in size and collapses >50% with inspiration. Pericardium There is no pericardial effusion. Other Information Quality : Adequate Conclusion LVEF is 55-60%. The left atrium is mildly dilated. The tricuspid aortic valve is sclerotic. There is mild mitral valve regurgitation noted. Assessment/Plan: ASSESSMENT: Acute on chronic hyponatremia, possible SIADH POA Electrolyte derangement (hyponatremia, hypochloremia, hypokalemia, hypomagnesemia) Multiple bleeding skin tears to bilateral upper extremities, POA, on Plavix chronic Congestive heart failure, LVEF 35-40% per echo on 08/18/2024 Heart failure with improved ejection fraction POA Iron deficiency anemia/acute on chronic anemia Uncontrolled hypertension Cachexia Chronic problem list: HTN, HDL, PVD, very hard of hearing, and right BKA, chronic constipation PVD with history of Abdominal aortogram with peripheral runoff of the left lower extremity, directional arthrectomy and drug coated angioplasty of the left distal L SFA artery and L TP artery and covered stent placement in the left peritoneal artery in 11/23/[address] Roney Acuña. History of Alcohol and tobacco abuse COPD, without exacerbation Right foot gangrene/osteomyelitis s/p right BKA done on 11/28/[address] Dominguez Severe Protein calorie malnutrition Home Medications: Active Scripts Aspirin (ASPIRIN 81MG CHEW TAB) 81 Mg Tab.chew, 1 TAB PO DAILY for 30 Days, #30 TAB 0 Refills Prov:CAT MI MD 02/05/25 Bumetanide (Bumex) 1 Mg Tab, 1 TAB PO DAILY for 30 Days, #30 TAB 0 Refills Prov:CAT MI MD 02/05/25 Sodium Chloride (Sodium Chloride) 1,000 Mg Tab, 1 TAB PO TID for 30 Days, #90 TAB 0 Refills Prov:CAT MI MD 02/05/25 Lisinopril (Lisinopril) 40 Mg Tablet, 1 TAB PO DAILY for 30 Days, #30 TAB 0 Refills Prov:CAT MI MD 02/05/25 Famotidine (Famotidine) 20 Mg Tablet, 1 TAB PO BID for 30 Days, #60 TAB 0 R efills Prov:CAT MI MD 02/05/25 Amlodipine Besylate (Norvasc) 5 Mg Tablet, 1 TAB PO DAILY for 30 Days, #30 TAB 0 Refills Prov:CAT MI MD 02/05/25 Empagliflozin (Jardiance) 10 Mg Tablet, 1 TAB PO DAILY for 30 Days, #30 TAB 0 Refills Prov:CAT MI MD 02/05/25 Reported Medications Metoprolol Succinate (Metoprolol Succinate) 50 Mg Tab.er.24h, 1 TAB PO DAILY for 30 Days, #30 TAB 0 Refills 08/20/24 Atorvastatin Calcium (LIPITOR) 40 Mg Tablet, 40 MG PO AM, TAB 08/20/24 Discontinued Reported Medications Clopidogrel Bisulfate (Plavix) 75 Mg Tablet, 75 MG PO DAILY, TAB 09/27/19 Enalapril Maleate (Enalapril Maleate) 20 Mg Tablet, 1 TAB PO DAILY for 30 Days, #30 TAB 0 Refills 08/20/24 Sucralfate (Sucralfate) 1 Gram Tablet, 1 GM PO HS, TAB 08/20/24 Sucralfate (Sucralfate) 1 Gram Tablet, 1 TAB PO QID for 30 Days, #120 TAB 0 Refills 08/20/24 Time spent arranging discharge: 31-60 minutes CAT MI MD Feb 05, 2025 12:57
--- NOTE | 2025-02-05 15:02 | NUR ---
HOSPICE FOLLOW UP As per nurse, family has decided not to continue with hospice at this time and will follow up with PCP.
--- NOTE | 2025-02-05 15:35 | NUR ---
DISCHARGE DC'D IV DISCHARGE INSTRUCTIONS GIVEN TO PT AND FAMILY. INSTRUCTIONS WERE ACKNOWLEDGED. FOLLOW UP APPOINTMENT WITH 02/09 AT 9:45AM MADE AWARE. PER PATIENTS' SON AND DAUGHTER, THE PATIENT WILL FOLLOW UP WITH HIS PCP REGARDING HOSPICE CARE AT A LATER TIME
== END 2025-02-05 15:05 | disposition home or self-care (01) | DRG 643 ==
LOC: EDH 19:46 → EDHIP 23:36 → 2AH 01-28 01:15 → 3CH 02-02 11:42
PROVIDERS: ADMIT Internal Medicine; ATTEND Internal Medicine
DX: E22.2 Syndrome of inappropriate secretion of antidiuretic hormone (principal); E43 Unspecified severe protein-calorie malnutrition; I50.23 Acute on chronic systolic (congestive) heart failure; N17.9 Acute kidney failure, unspecified; I13.0 Hypertensive heart and chronic kidney disease with heart failure and stage 1 through stage 4 chronic kidney disease, or unspecified chronic kidney disease; R64 Cachexia; Z68.1 Body mass index [BMI] 19.9 or less, adult; E86.0 Dehydration; D50.9 Iron deficiency anemia, unspecified; E87.8 Other disorders of electrolyte and fluid balance, not elsewhere classified; E83.42 Hypomagnesemia; E78.00 Pure hypercholesterolemia, unspecified; E87.6 Hypokalemia; F17.210 Nicotine dependence, cigarettes, uncomplicated; I25.10 Atherosclerotic heart disease of native coronary artery without angina pectoris; E11.51 Type 2 diabetes mellitus with diabetic peripheral angiopathy without gangrene; F10.10 Alcohol abuse, uncomplicated; S41.112A Laceration without foreign body of left upper arm, initial encounter; S41.111A Laceration without foreign body of right upper arm, initial encounter; K59.09 Other constipation; J44.9 Chronic obstructive pulmonary disease, unspecified; E11.22 Type 2 diabetes mellitus with diabetic chronic kidney disease; X58.XXXA Exposure to other specified factors, initial encounter; I44.1 Atrioventricular block, second degree; Z51.5 Encounter for palliative care; Z79.02 Long term (current) use of antithrombotics/antiplatelets; Z79.84 Long term (current) use of oral hypoglycemic drugs; Z82.49 Family history of ischemic heart disease and other diseases of the circulatory system; Z89.511 Acquired absence of right leg below knee; Z89.611 Acquired absence of right leg above knee; Z91.119 Patient's noncompliance with dietary regimen due to unspecified reason; Z95.1 Presence of aortocoronary bypass graft; Z79.899 Other long term (current) drug therapy; Y93.89 Activity, other specified; Y92.89 Other specified places as the place of occurrence of the external cause; Y99.8 Other external cause status
CPT/HCPCS: 36415; 71045; 71250; 73070; 80048; 80051; 80053; 80305; 81001; 82550; 82570; 82728; 82948; 83036; 83540; 83550; 83735; 83880; 83930; 83935; 84100; 84156; 84295; 84443; 84484; 84550; 85025; 85027; 85610; 85730; 93005; 93306; 93356; 99285; G0378; J1630; J1756; J3475; J3480; J7050